=== PATIENT | female | born 1960 | race Caucasian/White ===

== ENCOUNTER 2020-11-03 13:38 | Outpatient (REF) | payer OTHER, SELFPAY ==
[2020-11-03 14:55] LABS: Glucose Urine UA NEG (NEG); Leukocyte Esterase Urine NEG (NEG); Nitrite Urine NEG (NEG); PH 6.5 (5.0-8.0); Urine Blood 1+ (NEG); Urine Ketones NEG (NEG); Urine Protein NEG (NEG-TRACE)
[2020-11-03 14:57] LABS: Appearance Urine HAZY; Color Urine YELLOW
[2020-11-03 15:01] LABS: Bacteria Urine TRACE /LPF; Squamous Epithelial Cell Urine 3+ /LPF; WBC Urine 0-2 /HPF (0-4)
== END 2020-11-03 13:39 | disposition home or self-care (01) ==
LOC: HO.HMGCLDS 13:38
PROVIDERS: PCP Internal Medicine; Visit Provider Internal Medicine
DX: R30.0 Dysuria (principal)
CPT/HCPCS: 81001

== ENCOUNTER 2020-11-04 15:23 | Outpatient (REF) | payer OTHER, SELFPAY ==
[2020-11-05 08:04] LABS: BV Int Neg Control Negative (Negative); BV Int Pos Control Positive (Positive)
== END 2020-11-04 15:24 | disposition home or self-care (01) ==
LOC: HO.LAB 15:23
PROVIDERS: Visit Provider Internal Medicine
DX: R30.0 Dysuria (principal)
CPT/HCPCS: 87086; 87480; 87510; 87660; 88142

== ENCOUNTER 2021-02-24 10:49 | Outpatient (REF) | payer OTHER, SELFPAY ==
[2021-02-24 13:52] LABS: Glucose Urine UA NEG (NEG); Leukocyte Esterase Urine NEG (NEG); Nitrite Urine NEG (NEG); Specific Gravity - Urine 1.015 (1.005-1.025); Urine Blood NEG (NEG); Urine Ketones NEG (NEG); Urine Protein NEG (NEG-TRACE)
[2021-02-24 13:53] LABS: Hematocrit 45.3 % (37-47); Hemoglobin 14.3 g/dl (12.0-16.0); Mean Corpuscular HGB Conc 31.6 g/dl (31.0-35.0); Mean Corpuscular Hemoglobin 26.4 pg (27.0-33.0); Mean Corpuscular Volume 83.7 fL (80-98); Mean Platelet Volume 11.4 fL (9.4-12.3); Platelet Count 304 X10*3/uL (160-400); Red Blood Count 5.41 X10*6/uL (4.20-5.50); Red Cell Distribution Width 13.2 % (11.0-16.0); White Blood Count 12.7 X10*3/uL (4.8-10.8)
[2021-02-24 13:57] LABS: Appearance Urine CLEAR; Color Urine STRAW
[2021-02-24 14:18] LABS: Bacteria Urine TRACE /LPF; RBC Urine 0 /HPF (0); Squamous Epithelial Cell Urine 3+ /LPF; WBC Urine 0-2 /HPF (0-4)
[2021-02-24 14:19] LABS: Alanine Aminotransferase 34 U/L (0-31); Albumin Level 4.9 g/dL (3.5-5.0); Alkaline Phosphatase 66 U/L (39-117); Anion Gap 14 (12-20); Aspartate Amino Transferase 21 U/L (5-31); Bilirubin Total 0.5 mg/dL (0.0-1.0); Blood Urea Nitrogen 19 mg/dL (9-16); Calcium 9.8 mg/dL (8.4-10.2); Carbon Dioxide 30 mmol/L (22-29); Chloride 100 mmol/L (96-108); Cholesterol 284 mg/dL; Estimated Glomerular Filt Rate > 60; Glucose Fasting 95 mg/dL (60-99); HDL Cholesterol 49 mg/dL; LDL Cholesterol Calculated 184 mg/dl; Potassium 4.4 mmol/L (3.3-5.1); Sodium 140 mmol/L (135-145); Total Protein 7.9 g/dL (6.5-8.0); Triglycerides 255 mg/dL
[2021-02-24 14:39] LABS: TSH reflex Free T4 0.37 uIU/mL (0.32-4.0); Vitamin D 25-OH Total 33.9 ng/mL (>30)
== END 2021-02-24 10:50 | disposition home or self-care (01) ==
LOC: HO.HMGCLDS 10:49
PROVIDERS: PCP Internal Medicine; Visit Provider Internal Medicine
DX: Z00.00 Encounter for general adult medical examination without abnormal findings (principal); E78.5 Hyperlipidemia, unspecified; F41.9 Anxiety disorder, unspecified; I10 Essential (primary) hypertension; R30.0 Dysuria
CPT/HCPCS: 36415; 80053; 80061; 81001; 81003; 82306; 84443; 85027

== ENCOUNTER 2022-03-01 12:39 | Outpatient (REF) | payer OTHER, SELFPAY ==
--- NOTE | ~2022-03-01 | XR_ITS ---
EXAMINATION: 1. RADIOGRAPHS RIGHT HAND 2. RADIOGRAPHS LEFT HAND CLINICAL INFORMATION: Bilateral hand pain COMPARISON: None TECHNIQUE: 3 views of each hand were obtained FINDINGS: Right hand: Diffuse osteopenia. Visualized portion of the distal radius and ulna demonstrate no fracture. Carpal rows are well aligned. No carpal, metacarpal or phalangeal fracture. No significant degenerative changes of the right hand. No focal soft tissue swelling. No radiopaque foreign body. Left hand: Diffuse osteopenia. Visualized portions of the distal left radius and ulna demonstrate no fracture. Carpal rows are well aligned. No carpal bone fracture. No metacarpal or phalangeal fracture. No significant degenerative changes of the left hand. No focal soft tissue swelling. No radiopaque foreign body. XR/XR hand LT min 3V IMPRESSION: -Diffuse osteopenia of both hands. -No acute abnormality of either hand.
--- NOTE | ~2022-03-01 | XR_ITS ---
EXAMINATION: 1. RADIOGRAPHS RIGHT HAND 2. RADIOGRAPHS LEFT HAND CLINICAL INFORMATION: Bilateral hand pain COMPARISON: None TECHNIQUE: 3 views of each hand were obtained FINDINGS: Right hand: Diffuse osteopenia. Visualized portion of the distal radius and ulna demonstrate no fracture. Carpal rows are well aligned. No carpal, metacarpal or phalangeal fracture. No significant degenerative changes of the right hand. No focal soft tissue swelling. No radiopaque foreign body. Left hand: Diffuse osteopenia. Visualized portions of the distal left radius and ulna demonstrate no fracture. Carpal rows are well aligned. No carpal bone fracture. No metacarpal or phalangeal fracture. No significant degenerative changes of the left hand. No focal soft tissue swelling. No radiopaque foreign body. XR/XR hand RT min 3V IMPRESSION: -Diffuse osteopenia of both hands. -No acute abnormality of either hand.
--- NOTE | ~2022-03-01 | XR_ITS ---
EXAMINATION: 1. RADIOGRAPHS RIGHT SHOULDER 2. RADIOGRAPHS LEFT SHOULDER CLINICAL INFORMATION: Bilateral shoulder pain COMPARISON: None TECHNIQUE: 4 views of each shoulder were obtained. FINDINGS: Right shoulder: Visualized portion of the proximal right humerus demonstrate no fracture. Humeral head demonstrates good articulation with the glenoid fossa. Small osteophyte off the inferior glenoid. Minimal hypertrophic changes of the right acromioclavicular joint. Visualized right-sided ribs and lung parenchyma are unremarkable. Left shoulder: Visualized portion of the proximal left humerus demonstrate no fracture. Humeral head demonstrates good articulation with the glenoid fossa. The left acromioclavicular joint is unremarkable. Visualized left-sided ribs and lung parenchyma are normal in appearance. XR/XR shoulder LT min 2V IMPRESSION: -Minimal degenerative changes of the right shoulder. -Grossly unremarkable radiographs of the left shoulder.
--- NOTE | ~2022-03-01 | XR_ITS ---
EXAMINATION: 1. RADIOGRAPHS RIGHT SHOULDER 2. RADIOGRAPHS LEFT SHOULDER CLINICAL INFORMATION: Bilateral shoulder pain COMPARISON: None TECHNIQUE: 4 views of each shoulder were obtained. FINDINGS: Right shoulder: Visualized portion of the proximal right humerus demonstrate no fracture. Humeral head demonstrates good articulation with the glenoid fossa. Small osteophyte off the inferior glenoid. Minimal hypertrophic changes of the right acromioclavicular joint. Visualized right-sided ribs and lung parenchyma are unremarkable. Left shoulder: Visualized portion of the proximal left humerus demonstrate no fracture. Humeral head demonstrates good articulation with the glenoid fossa. The left acromioclavicular joint is unremarkable. Visualized left-sided ribs and lung parenchyma are normal in appearance. XR/XR shoulder RT min 2V IMPRESSION: -Minimal degenerative changes of the right shoulder. -Grossly unremarkable radiographs of the left shoulder.
[2022-03-01 13:50] LABS: Hematocrit 42.4 % (37.0-47.0); Hemoglobin 13.5 g/dl (12.0-16.0); Mean Corpuscular HGB Conc 31.8 g/dl (31.0-35.0); Mean Corpuscular Hemoglobin 26.3 pg (27.0-33.0); Mean Corpuscular Volume 82.5 fL (80.0-98.0); Mean Platelet Volume 10.6 fL (9.4-12.3); Platelet Count 264 X10*3/uL (160-400); Red Blood Count 5.14 X10*6/uL (4.20-5.50); Red Cell Distribution Width 13.5 % (11.0-16.0); White Blood Count 8.4 X10*3/uL (4.8-10.8)
[2022-03-01 14:34] LABS: Erythrocyte Sedimentation Rate 12 MM/HR (0-20)
[2022-03-01 14:44] LABS: Alanine Aminotransferase 46 U/L (0-31); Albumin Level 4.6 g/dL (3.5-5.0); Alkaline Phosphatase 66 U/L (39-117); Anion Gap 12 (12-20); Aspartate Amino Transferase 28 U/L (5-31); Bilirubin Total 0.6 mg/dL (0.0-1.0); Blood Urea Nitrogen 15 mg/dL (9-16); Calcium 9.7 mg/dL (8.4-10.2); Carbon Dioxide 26 mmol/L (22-29); Chloride 106 mmol/L (96-108); Cholesterol 222 mg/dL; Estimated Glomerular Filt Rate > 60; Glucose Fasting 94 mg/dL (60-99); HDL Cholesterol 42 mg/dL; LDL Cholesterol Calculated 141 mg/dl; Potassium 4.6 mmol/L (3.3-5.1); Sodium 139 mmol/L (135-145); Total Protein 7.2 g/dL (6.5-8.0); Triglycerides 195 mg/dL
[2022-03-01 14:45] LABS: Rheumatoid Factor < 15.0 IU/mL (<15.0)
[2022-03-01 14:54] LABS: TSH reflex Free T4 0.41 uIU/mL (0.32-4.0)
[2022-03-03 12:31] LABS: Anti Nuclear Antibody Screen NEGATIVE (NEGATIVE)
[2022-03-03 23:57] LABS: Cyclic Citrullinated Peptide <16 UNITS
== END 2022-03-01 12:40 | disposition home or self-care (01) ==
LOC: HO.HMGCX 12:39
PROVIDERS: PCP Internal Medicine; Visit Provider Internal Medicine
DX: M79.642 Pain in left hand (principal); M79.641 Pain in right hand; M25.512 Pain in left shoulder; M25.511 Pain in right shoulder; I10 Essential (primary) hypertension; E78.5 Hyperlipidemia, unspecified
CPT/HCPCS: 36415; 73030; 73130; 80053; 80061; 84443; 85027; 85652; 86038; 86039; 86200; 86431

== ENCOUNTER 2022-08-26 15:30 | Outpatient (REF) | payer OTHER, SELFPAY | END 2022-08-26 15:31 | disposition home or self-care (01) | LOC: HO.HMGCLNP 15:30 | PROVIDERS: PCP Internal Medicine; Visit Provider Internal Medicine | DX: R76.8 Other specified abnormal immunological findings in serum (principal) | CPT/HCPCS: 87338 ==

== ENCOUNTER 2022-09-08 11:50 | Outpatient (REF) | payer OTHER, SELFPAY ==
[2022-09-08 14:17] LABS: Alanine Aminotransferase 22 U/L (0-31); Albumin Level 4.7 g/dL (3.5-5.0); Alkaline Phosphatase 65 U/L (39-117); Anion Gap 15 (12-20); Aspartate Amino Transferase 20 U/L (5-31); Bilirubin Total 0.2 mg/dL (0.0-1.0); Blood Urea Nitrogen 15 mg/dL (9-16); Calcium 9.8 mg/dL (8.4-10.2); Carbon Dioxide 26 mmol/L (22-29); Chloride 104 mmol/L (96-108); Cholesterol 232 mg/dL; Estimated Glomerular Filt Rate > 60; Glucose Fasting 101 mg/dL (60-99); HDL Cholesterol 44 mg/dL; LDL Cholesterol Calculated 157 mg/dl; Potassium 4.5 mmol/L (3.3-5.1); Sodium 140 mmol/L (135-145); Total Protein 7.5 g/dL (6.5-8.0); Triglycerides 155 mg/dL
[2022-09-08 14:38] LABS: TSH reflex Free T4 0.53 uIU/mL (0.32-4.0); Vitamin D 25-OH Total 26.1 ng/mL (>30)
== END 2022-09-08 11:51 | disposition home or self-care (01) ==
LOC: HO.HMGCLDS 11:50
PROVIDERS: PCP Internal Medicine; Visit Provider Internal Medicine
DX: E55.9 Vitamin D deficiency, unspecified (principal); E78.5 Hyperlipidemia, unspecified; I10 Essential (primary) hypertension
CPT/HCPCS: 36415; 80053; 80061; 82306; 84443

== ENCOUNTER 2023-04-06 13:10 | Outpatient (REF) | payer OTHER, SELFPAY ==
--- NOTE | ~2023-04-06 | US_ITS ---
EXAMINATION: US PELVIS CLINICAL INFORMATION: Ovarian cyst right COMPARISON: Previous CT of the abdomen and pelvis October 2016 TECHNIQUE: Transabdominal and transvaginal pelvic ultrasound was performed. Transvaginal exam was performed for better visualization of the uterus and ovaries. FINDINGS: The uterus is anteverted and measures 7.5 x 2.5 x 3.6 cm. The double wall endometrial thickness is 11 mm. This is abnormally thickened for a postmenopausal patient. The uterus is smooth in contour and has normal myometrial echogenicity. No visible fibroid. The right ovary is normal-appearing and measures 1.8 x 0.7 x 1.6 cm. No cyst is seen. The left ovary is not seen. There is no fluid in the pelvis. US/US pelvic and transvaginal IMPRESSION: Normal-appearing right ovary. Left ovary not seen. Abnormally thickened endometrium for a postmenopausal patient measuring 11 mm. FULL TIME BABYSITTER consultation recommended.
--- NOTE | ~2023-04-06 | XR_ITS ---
EXAMINATION: XR LUMBOSACRAL SPINE CLINICAL INFORMATION: Low back pain COMPARISON: None available. TECHNIQUE: Three views of the lumbosacral spine. FINDINGS: There is mild straightening of lumbar lordosis. There is loss of L1 superior endplate height likely compression deformity of indeterminate age. Rest of the vertebral heights and alignment are normal. There is mild loss of L5-S1 disc height. Rest the disc heights are normal. No aggressive lytic or sclerotic process seen. The paravertebral soft tissues are normal. XR/XR lumbar spine 2-3V IMPRESSION: Loss of superior endplate height L1 vertebra of indeterminate age. Correlation with outpatient Limited bone scan or MRI lumbar spine can be performed if patient has pain.
== END 2023-04-06 13:11 | disposition home or self-care (01) ==
LOC: HO.HMGCX 13:10
PROVIDERS: PCP Internal Medicine; Visit Provider Internal Medicine
DX: M54.50 Low back pain, unspecified (principal); N83.209 Unspecified ovarian cyst, unspecified side
CPT/HCPCS: 72100; 76830; 76856

== ENCOUNTER 2023-04-20 14:19 | Outpatient (REF) | payer OTHER, SELFPAY ==
--- NOTE | ~2023-04-20 | MM_ITS ---
EXAMINATION: BONE DENSITOMETRY CLINICAL INDICATION: Asymptomatic menopausal state. COMPARISON: None (current study represents initial baseline exam). TECHNIQUE: Using a [employer] DXA System (software version: 13.1) manufactured by [employer], dual-energy x-ray absorptiometry was performed of the lumbar spine and left hip. The images are of good technical quality. Summary results are attached. FINDINGS: AP SPINE L1-L4: BMD 1.013 g/cm2, Z-score 0.0, T-score -1.4, osteopenia. LEFT FEMUR, NECK: BMD 0.693 g/cm2, Z-score -1.2, T-score -2.5, osteoporosis. LEFT FEMUR, TOTAL: BMD 0.670 g/cm2, Z-score -1.6, T-score -2.7, osteoporosis. IDENTIFIED RISK FACTORS: Menopause, history of fracture (adult), osteoporosis, tobacco use (current smoker). HISTORY OF FRACTURE: Wrists. MEDICATIONS: Calcium supplements or multivitamin, vitamin D. MM/XR DEXA axial skeleton IMPRESSION: 1. DIAGNOSIS: Osteoporosis based on the lowest T-score value of -2.7 in the applying World Health Organization criteria. 2. 10-YEAR FRACTURE RISK PREDICTION, FRAX: According to the guidelines, FRAX calculation should only be performed on patients in the osteopenia bone density category. Therefore, FRAX was not performed on this patient. 3. Treatment Recommendations: NOF guidelines recommend consideration for treatment in postmenopausal women and men age 50 and older presenting with the following: -A hip or vertebral (clinical or morphometric) fracture. -T-score less than or equal to -2.5 at the femoral neck or spine after appropriate evaluation to exclude secondary causes. -Low bone mass at the hip or spine and a 10-year fracture probability by FRAX of greater than or equal to 3% for hip fracture or greater than or equal to 20% for major osteoporotic fracture based on the [place] adapted WHO algorithm. 4. Other Recommendations: All treatment decisions require clinical judgment and consideration of individual patient factors, including patient preferences, comorbidities, previous drug use, risk factors not captured in the FRAX model (e.g. frailty, falls, vitamin D deficiency, increased bone turnover, interval significant decline in bone density) and possible under or overestimation of fracture risk by FRAX. Additional medical evaluation for secondary cause of low bone mineral density may be appropriate. FUTURE SCAN RECOMMENDATION: People with diagnosed cases of osteoporosis or at high risk for fracture should have regular bone mineral density tests. For patients eligible for Medicare, routine testing is allowed once every 2 years. The testing frequency can be increased to one year for patients who have rapidly progressing disease, those who are receiving or discontinuing medical therapy to restore bone mass, or have additional risk factors.
== END 2023-04-20 14:20 | disposition home or self-care (01) ==
LOC: HO.MAMMO 14:19
PROVIDERS: PCP Internal Medicine; Visit Provider Internal Medicine
DX: Z13.820 Encounter for screening for osteoporosis (principal); Z78.0 Asymptomatic menopausal state
CPT/HCPCS: 77080

== ENCOUNTER 2023-05-19 12:31 | Outpatient (REF) | payer OTHER, SELFPAY ==
[2023-05-26 05:18] LABS: HPV mRNA E6/E7 rflx Not Detected (Not Detected)
== END 2023-05-19 12:32 | disposition home or self-care (01) ==
LOC: HO.LNP 12:31
PROVIDERS: PCP Internal Medicine; Visit Provider Obstetrics & Gynecology
DX: Z12.4 Encounter for screening for malignant neoplasm of cervix (principal); Z11.51 Encounter for screening for human papillomavirus (HPV); R93.89 Abnormal findings on diagnostic imaging of other specified body structures
CPT/HCPCS: 58100; 87624; 88142

== ENCOUNTER 2023-05-19 13:19 | Outpatient (REF) | payer OTHER, SELFPAY | END 2023-05-19 13:20 | disposition home or self-care (01) | LOC: HO.LAB 13:19 | PROVIDERS: Visit Provider Obstetrics & Gynecology | DX: R93.89 Abnormal findings on diagnostic imaging of other specified body structures (principal) | CPT/HCPCS: 88305 ==

== ENCOUNTER 2023-05-23 14:32 | Outpatient (REF) | payer OTHER, SELFPAY ==
--- NOTE | ~2023-05-23 | MM_ITS ---
EXAMINATION: MM SCREENING DIGITAL BREAST TOMOSYNTHESIS, RIGHT CLINICAL INFORMATION: Screening. Asymptomatic. Please note that the patient was only able to tolerate her right breast being imaged. She indicated that she would return in July 2023 at the left breast image. COMPARISON: Mammography: This study is compared with prior exams dating back to 2018. TECHNIQUE: Digital breast tomosynthesis is performed in both the craniocaudal and mediolateral oblique views along with computer-aided detection (CAD). Synthesized 2D images are generated from the tomosynthesis. FINDINGS: There are scattered areas of fibroglandular density (ACR BI-RADS breast composition Category b). There are no significant masses, abnormal calcifications, or other abnormalities. MM/MM tomosynthesis screening RT IMPRESSION: No mammographic evidence of malignancy. ASSESSMENT: BI-RADS BI-RADS 1 - Negative RECOMMENDATION: The patient will return to have her standard left breast screening mammogram performed in July 2023. Additional Imaging required This examination should not preclude the clinical evaluation of a suspicious palpable abnormality. This patient's information was entered into a reminder system with a target due date for their next mammogram.
== END 2023-05-23 14:33 | disposition home or self-care (01) ==
LOC: HO.MAMMO 14:32
PROVIDERS: PCP Internal Medicine; Visit Provider Internal Medicine
DX: Z12.31 Encounter for screening mammogram for malignant neoplasm of breast (principal)
CPT/HCPCS: 77063; 77067

== ENCOUNTER → 2023-05-23 14:45 | Outpatient (BNV) | payer OTHER, SELFPAY | PROVIDERS: PCP Internal Medicine; Visit Provider Radiology Diagnostic Radiology | DX: Z12.31 Encounter for screening mammogram for malignant neoplasm of breast (principal) | CPT/HCPCS: 77063; 77067 ==

== ENCOUNTER 2023-05-23 15:41 | Emergency (ER) | payer OTHER, SELFPAY ==
--- NOTE | ~2023-05-23 | CT_ITS ---
EXAMINATION: CT ANGIOGRAM HEAD CT ANGIOGRAM NECK CLINICAL INFORMATION: Left-sided weakness. Confusion. COMPARISON: CT head 05/23/2023. TECHNIQUE: Geological E Logger images were obtained. A CT angiogram of the head and neck was performed in the arterial phase after the intravenous administration of 70 mL Omnipaque 350. Delayed postcontrast images of the head were also obtained. 3D images were processed on an independent workstation under concurrent supervision. Arterial stenoses are measured in accordance with NASCET criteria or similar method if applicable. This CT examination was performed using dose optimization techniques as appropriate, including one or more of the following: Automated exposure control, iterative reconstruction, and adjustment of technique factors (mA and/or kVp) according to patient size (this includes techniques or standardized protocols for targeted exams where dose is matched to indication/reason for exam). Fleischner Society criteria for the followup of incidental pulmonary nodules was implemented if appropriate. Total exam dose-length product 1387 mGy-cm FINDINGS: Head: Postcontrast images reveal no abnormal intracranial mass or enhancement. There is no intracranial mass effect or midline shift. Lateral and third ventricles are normal. No hydrocephalus. Aguirre-white matter differentiation is preserved and there is no evidence of acute territorial infarct. The calvarium and skull base are intact. Mastoid air cells and middle ear cavities are well-aerated. No active paranasal sinus disease. CT angiogram neck: Scattered atheromatous calcification involves the aortic arch apex. Origins of major aortic branches are patent. Common carotid arteries are normal. There is partially calcified predominantly lipid-laden atheromatous plaque at both carotid bifurcations causing 25-50% stenosis at the origins of the internal carotid arteries. The right carotid plaque has a deep ulceration best visualized on axial image 521 of 879 series 8. The cervical segments of the vertebral arteries are widely patent. CT angiogram head: Intracranial internal carotid arteries are patent. The intradural vertebral artery segments and basilar artery are patent. Anterior, middle, and posterior cerebral artery complexes are normal. No intracranial large vessel occlusion. No identifiable aneurysm or high flow vascular lesion. The timing of the contrast injection provides adequate opacification of the dural venous sinuses which are patent. Other: Soft tissues of the neck including the thyroid gland are normal. Grossly no pathologically enlarged cervical lymph nodes. There is degenerative spondylosis with hypertrophic disc osteophyte spurring at C6-C7. Otherwise no evidence of spinal canal compromise. No worrisome lytic or blastic osseous lesion within the [id number] of this examination. Lung apices are clear. CT/CT angio head neck stroke IMPRESSION: There is partially calcified predominantly lipid-laden atheromatous plaque at both carotid bifurcations causing 25-50% stenosis at the origins of both internal carotid arteries. The right carotid plaque has a deep ulceration. Cervical vertebral arteries are widely patent. No intracranial large vessel occlusion. No evidence of acute territorial infarct or hemorrhage. No abnormal intracranial mass or enhancement. This critical result was discussed with Araceli Grant NP at 5:01 PM on 05/23/2023 and it was ascertained that the content and urgency of the report was understood at the time of direct communication.
--- NOTE | ~2023-05-23 | XR_ITS ---
EXAMINATION: XR CHEST CLINICAL INFORMATION: Syncope COMPARISON: None available. TECHNIQUE: Frontal view of the chest was obtained. FINDINGS: No significant abnormality is noted involving the heart, lungs, mediastinum, bony thorax or soft tissues. XR/XR chest 1V IMPRESSION: Unremarkable examination.
--- NOTE | 2023-05-23 16:01 | ED_ITS ---
HPI - General Adult General Chief complaint: General Medical Stated complaint: high bp/ faintlike Time Seen by Provider: 05/23/23 16:24 Source: patient Mode of arrival: ambulatory Limitations: no limitations History of Present Illness HPI narrative: Patient history of hypertension vasovagal attacks in the past while having mammogram felt weak vision got blurred was sweaty had a almost Near syncope episode questionable slurred speech. No focal deficit noticed patient was seen at the triage and CT stroke was suspected CT scan of the head was done which was negative patient denies any chest pain or palpitation Related Data Home Medications Medication Instructions Recorded Confirmed zolpidem 10 mg tablet 10 mg PO BEDTIME PRN 11/04/20 04/06/23 Previous Rx's Medication Instructions Recorded Lactobacillus rhamnosus GG 10 1 cap PO DAILY #30 caps 11/04/20 billion cell capsule (Culturelle) hydroxyzine HCl 25 mg tablet 25 mg PO TID PRN nausea and 02/23/21 vomiting #20 tabs amlodipine 5 mg-benazepril 10 mg 1 cap PO DAILY #90 caps 08/26/22 capsule propranolol 40 mg tablet 40 mg PO BID #180 tabs 03/09/23 acetaminophen 650 mg 650 mg PO Q12H #30 tabs 04/06/23 tablet,extended release alendronate 70 mg tablet 70 mg PO QWEEK #10 tabs 04/22/23 aspirin 81 mg tablet,delayed 81 mg PO DAILY #30 tabs 05/23/23 release Allergies Allergy/AdvReac Type Severity Reaction Status Date / Time Iodinated Contrast Media Allergy Unconscious Verified 05/23/23 16:10 [IV Contrast Dye] atorvastatin AdvReac Intermediate hair loss Verified 05/23/23 16:09 Erythromycin Allergy Unknown Hives Uncoded 05/23/23 16:09 Review of Systems Review of Systems: Yes all other systems are reviewed and are negative PMFSH Past Medical History Medical History Annual physical exam Anxiety disorder Bilateral hand pain Dysuria History of Papanicolaou smear of cervix Hx of bone density study Hyperlipidemia Hypertension IBS (irritable bowel syndrome) Major depressive disorder Positive serology for Helicobacter pylori Shoulder pain, bilateral Surgical History H/O colonoscopy History of appendectomy Social History Social History Housing: Apartment Alcohol intake: never Patient Tobacco Use Status: Current someday Tobacco user Cigarettes Per Day: 7 Smoked in Last 30 Days: Yes e-Cigarette/Vaping Use: Never Used Use of substances other than those prescribed or required for medical reasons: No Advance Directives: No Advance Directives Information Provided: Yes service: No Current occupational status: unemployed Cognitive needs: No Hearing needs: No Vision needs: Yes Physical Exam ED Vital Signs: Vital Signs - 24 hr 05/23/23 16:10 05/23/23 17:24 05/23/23 17:28 Temperature 98 F 98.5 F Pulse Rate 73 68 68 Respiratory Rate 19 16 Blood Pressure 177/95 H 158/72 H 155/81 H Pulse Oximetry 99 98 Oxygen Delivery Method Room Air Room Air 05/23/23 17:24 05/23/23 17:26 05/23/23 18:00 Temperature Pulse Rate 68 72 70 Respiratory Rate 17 Blood Pressure 155/81 H 140/81 H Pulse Oximetry 98 Oxygen Delivery Method Room Air BMI result Body Mass Index 24.7 Appearance: Alert. Oriented X3. No acute distress. Eyes: PERRLA, No Nystagmus ENT: Pharynx normal. Oral Mucosa moist Neck: Normal inspection. Neck supple. CVS: Normal heart rate and rhythm. Pulses normal. Respiratory: No respiratory distress. Equal air entry bilateral, no wheezing/rales/rhonchi Abdomen: Soft and nontender. Bowel sounds are present, no mass palpable, no CVA tenderness Skin: Skin warm and dry. Normal skin color. Normal skin turgor. Extremities: No lower extremity edema. No calf tenderness Neuro: Oriented X 3. No motor deficit. No sensory deficit.No cerebellar signs , cranial nerves II-XII intact NIH Stroke Scale Internal: Initial- Upon Arrival Level of Consciousness: Alert Level of Consciousness Questions: Answers both questions correctly Level of Consciousness Commands: Performs both tasks correctly Best Gaze: Normal Visual: No visual loss Facial Palsy: Normal Motor Arm (Right): No drift Motor Arm (Left): No drift Motor Leg (Right): No drift Motor Leg (Left): No drift Limb Ataxia: Absent Sensory: Normal Best Language: No aphasia Dysarthia: Normal Extinction and Inattention: No abnormality Score: 0 Course Course Course Narrative: 1617 This is an RME: Additional HPI, ROS, PE not included below will be deferred to primary provider. 62 yo female presents w/ vasovagal reaction per staff member at [facility]. Occurred during stella patient became pale, diaphoretic and felt fait. Noted to be HTN, tachycardic at the [facility]. Not on anticoags Per family patients LKWT was 2:30 the notice she is weak and confused 4/5 strength to LUE and 5/5 to RUE, patient slow to respond. Stroke protocol initiated at this time. Plan- labs, imaging, ekg 1622 At about 2:30 patient became, pale, slow to respond, diaphoretic and weak per administration professional Medications Administered Discontinued Medications Generic Name Dose Route Start Last Admin Trade Name Perry PRN Reason Stop Dose Admin Aspirin 81 mg 05/23/23 17:49 05/23/23 18:09 Aspirin 81 Mg Tab.Chew PO 05/23/23 17:50 81 mg ONCE ONE Administration Iohexol 100 ml 05/23/23 16:43 05/23/23 16:45 Iohexol 350 Mg/Ml 100 Ml Infus..Btl IV 05/23/23 16:44 70 ml ONCE ONE Administration Medical Decision Making Medical Decision Making [facility] Narrative: Patient With symptoms likely from vasovagal near-syncope no focal deficit noticed an HS a score of 0 CT scan showed significant plaque disease and carotid artery kit with Dr. Canela vascular surgeon advised starting baby aspirin daily follow up as outpatient Lab Data [facility] Lab Attestation statement: I reviewed the patient's lab results. 05/23/23 18:24 05/23/23 18:28 Labs: Lab Results 05/23/23 05/23/23 05/23/23 Range/Units 17:12 18:24 18:28 WBC 11.5 H (4.8-10.8) X10*3/uL RBC 5.91 H (4.20-5.50) X10*6/uL Hgb 15.5 (12.0-16.0) g/dl Hct 48.5 H (37.0-47.0) % MCV 82.1 (80.0-98.0) fL MCH 26.2 L (27.0-33.0) pg MCHC 32.0 (31.0-35.0) g/dl RDW 13.0 (11.0-16.0) % Plt Count 262 (160-400) X10*3/uL MPV 10.5 (9.4-12.3) fL Immature Gran % (Auto) 0.3 (0.0-0.4) % Neut % (Auto) 75.2 H (45-73) % Lymph % (Auto) 19.2 L (20-40) % Nash % (Auto) 3.9 (2-11) % Eos % (Auto) 0.8 (0-4) % Baso % (Auto) 0.6 (0-2) % Lymph # (Auto) 2.2 (1.2-4.9) X10*3/uL Nash # (Auto) 0.5 (0.1-1.2) X10*3/uL Eos # (Auto) 0.1 (0.0-0.4) X10*3/uL Baso # (Auto) 0.1 (0.0-0.2) X10*3/uL Abs Immat Gran (auto) 0.03 (0.00-0.03) X10*3/uL Absolute Neuts (auto) 8.7 H (2.0-8.3) x10*3/uL Absolute Nucleated RBC 0.000 (0.0-0.012) X10*3/uL Nucleated RBC % (auto) 0.0 (0.0-0.2) /100WBC PT 11.6 (10.0-13.1) SEC INR 1.0 (0.9-1.1) COVID-19 ([facility]) Negative (Negative) COVID-19 Clin Com See Note Radiology Impression Discussion of test interpretation with radiology: I have reviewed the radiologist's reading. Radiologist Impression: [address] [address] [address] Scan Report Signed Patient: Deepika Steel MR#: [id number] : 1960 Acct:[id number] Age/Sex: 62 / F ADM Date: 05/23/23 Loc: .ED Attending Dr: Ordering Physician: Cricket Sosa Date of Service: 05/23/23 Procedure(s): CT angio head? neck stroke Accession Number(s): [id number] cc: Cricket Sosa~ EXAMINATION: CT ANGIOGRAM HEAD CT ANGIOGRAM NECK CLINICAL INFORMATION: Left-sided weakness. Confusion.? COMPARISON: CT head 05/23/2023.? TECHNIQUE: [employer] images were obtained. A CT angiogram of the head and neck was performed in the arterial phase after the intravenous administration of 70 mL Omnipaque 350. Delayed postcontrast images of the head were also obtained. 3D images were processed on an independent workstation under concurrent supervision. Arterial stenoses are measured in accordance with NASCET criteria or similar method if applicable. This CT examination was performed using dose optimization techniques as appropriate, including one or more of the following: Automated exposure control, iterative reconstruction, and adjustment of technique factors (mA and/or kVp) according to patient size (this includes techniques or standardized protocols for targeted exams where dose is matched to indication/reason for exam). Fleischner Society criteria for the followup of incidental pulmonary nodules was implemented if appropriate. Total exam dose-length product 1387 mGy-cm FINDINGS: Head: Postcontrast images reveal no abnormal intracranial mass or enhancement. There is no intracranial mass effect or midline shift. Lateral and third ventricles are normal. No hydrocephalus. Aguirre-white matter differentiation is preserved and there is no evidence of acute territorial infarct. The calvarium and skull base are intact. Mastoid air cells and middle ear cavities are well-aerated. No active paranasal sinus disease. CT angiogram neck: Scattered atheromatous calcification involves the aortic arch apex. Origins of major aortic branches are patent. Common carotid arteries are normal. There is partially calcified predominantly lipid-laden atheromatous plaque at both carotid bifurcations causing 25-50% stenosis at the origins of the internal carotid arteries. The right carotid plaque has a deep ulceration best visualized on axial image 521 of 879 series 8. The cervical segments of the vertebral arteries are widely patent. CT angiogram head: Intracranial internal carotid arteries are patent. The intradural vertebral artery segments and basilar artery are patent. Anterior, middle, and posterior cerebral artery complexes are normal. No intracranial large vessel occlusion. No identifiable aneurysm or high flow vascular lesion. The timing of the contrast injection provides adequate opacification of the dural venous sinuses which are patent. Other: Soft tissues of the neck including the thyroid gland are normal. Grossly no pathologically enlarged cervical lymph nodes. There is degenerative spondylosis with hypertrophic disc osteophyte spurring at C6-C7. Otherwise no evidence of spinal canal compromise. No worrisome lytic or blastic osseous lesion within the [id number] of this examination. Lung apices are clear. CT/CT angio head? neck stroke IMPRESSION: There is partially calcified predominantly lipid-laden atheromatous plaque at both carotid bifurcations causing 25-50% stenosis at the origins of both internal carotid arteries. The right carotid plaque has a deep ulceration. Cervical vertebral arteries are widely patent. No intracranial large vessel occlusion. No evidence of acute territorial infarct or hemorrhage. No abnormal intracranial mass or enhancement. ? This critical result was discussed with Araceli Grant NP at 5:01 PM on 05/23/2023 and it was ascertained that the content and urgency of the report was understood at the time of direct communication. Dictated By: Jf Dennis MD Signed By: <Electronically signed by Jf Dennis MD in OV> 05/23/23 1705 DD/ 1653 TD/TT:? Finishing Range Operator: Discharge Plan Discharge Clinical Impression: Vasovagal near-syncope Patient Disposition: Home, Self-Care Instructions: Syncope (ED) Additional Instructions: Your symptoms likely from vasovagal near-syncope Drink plenty of fluids CT scan showed right carotid plaque need further evaluation by Dr. Canela vascular surgeon Start taking baby aspirin 81 mg daily for now Report to the ER if recurrence of symptoms Prescriptions: New aspirin 81 mg tablet,delayed release (DR/EC) 81 mg PO DAILY Qty: 30 0RF No Action amlodipine-benazepril 5-10 mg capsule 1 cap PO DAILY Qty: 90 3RF propranolol 40 mg tablet 40 mg PO BID Qty: 180 3RF alendronate 70 mg tablet 70 mg PO QWEEK Qty: 10 3RF zolpidem 10 mg tablet 10 mg PO BEDTIME PRN Culturelle 10 billion cell capsule 1 cap PO DAILY Qty: 30 3RF hydroxyzine HCl 25 mg tablet 25 mg PO TID PRN (Reason: nausea and vomiting) Qty: 20 0RF acetaminophen 650 mg tablet extended release 650 mg PO Q12H Qty: 30 0RF Referrals: Clement Canela MD [Physician] - 1 week
--- NOTE | 2023-05-23 16:01 | ECG_ITS ---
Test Reason : syncope Blood Pressure : / mmHG Vent. Rate : 070 BPM Atrial Rate : 070 BPM P-R Int : 196 ms QRS Dur : 076 ms QT Int : 396 ms P-R-T Axes : 047 000 047 degrees QTc Int : 427 ms Normal sinus rhythm Normal ECG No previous ECGs available Referred By: Cricket Sosa Electronically Signed By:BERTHA WALDROP MD
[2023-05-23 16:10] VITALS: BP 177/95; PULSE 73; RESP 19; TEMP 36.6; O2SAT 99; BMI 24.7
[2023-05-23 17:24] VITALS: BP 155/81; BP 158/72; PULSE 68
[2023-05-23 17:26] VITALS: BP 140/81; PULSE 72
[2023-05-23 17:28] VITALS: BP 155/81; PULSE 68; RESP 16; TEMP 36.9; O2SAT 98
[2023-05-23 17:44] LABS: COVID-19 Test Negative (Negative); IDNOW Serial# 6674DD1D
[2023-05-23 18:00] VITALS: PULSE 70; RESP 17; O2SAT 98
[2023-05-23] MEDS: Aspirin 81 MG TAB.CHEW PO (18:09)
[2023-05-23 18:28] LABS: MANUAL DIFF FLAG NO
[2023-05-23 18:34] LABS: Basophils Absolute Auto 0.1 X10*3/uL (0.0-0.2); Basophils Percent Auto 0.6 % (0-2); Eosinophils Absolute Auto 0.1 X10*3/uL (0.0-0.4); Eosinophils Percent Auto 0.8 % (0-4); Hematocrit 48.5 % (37.0-47.0); Hemoglobin 15.5 g/dl (12.0-16.0); Imm Gran Abs Auto 0.03 X10*3/uL (0.00-0.03); Imm Gran Pct Auto 0.3 % (0.0-0.4); Lymphocytes Absolute Auto 2.2 X10*3/uL (1.2-4.9); Lymphocytes Percent Auto 19.2 % (20-40); Mean Corpuscular Hemoglobin 26.2 pg (27.0-33.0); Mean Corpuscular Volume 82.1 fL (80.0-98.0); Mean Platelet Volume 10.5 fL (9.4-12.3); Monocytes Absolute Auto 0.5 X10*3/uL (0.1-1.2); Monocytes Percent Auto 3.9 % (2-11); Neutrophils Absolute Auto 8.7 x10*3/uL (2.0-8.3); Neutrophils Percent Auto 75.2 % (45-73); Platelet Count 262 X10*3/uL (160-400); Red Blood Count 5.91 X10*6/uL (4.20-5.50); White Blood Count 11.5 X10*3/uL (4.8-10.8)
[2023-05-23 18:40] LABS: Prothrombin Time 11.6 SEC (10.0-13.1)
[2023-05-23 19:32] LABS: Alanine Aminotransferase 26 U/L (0-31); Albumin Level 4.6 g/dL (3.5-5.0); Alkaline Phosphatase 81 U/L (39-117); Anion Gap 21 (12-20); Aspartate Amino Transferase 22 U/L (5-31); Bilirubin Total 0.3 mg/dL (0.0-1.0); Blood Urea Nitrogen 12 mg/dL (9-16); Calcium 10.5 mg/dL (8.4-10.2); Carbon Dioxide 17 mmol/L (22-29); Chloride 106 mmol/L (96-108); Creatinine Clr Calc Pharmacy 73.6; Estimated Glomerular Filt Rate > 60; Glucose Random 108 mg/dL (60-115); Magnesium 2.3 mg/dL (1.6-2.6); Potassium 4.7 mmol/L (3.3-5.1); Sodium 139 mmol/L (135-145); Total Protein 8.1 g/dL (6.5-8.0); Troponin-I High Sensitivity < 2.7 ng/L (<3.5-17.0)
== END 2023-05-23 19:48 | disposition home or self-care (01) ==
PROVIDERS: Physician Assistant; Emergency Provider Internal Medicine; PCP Internal Medicine
DX: R55 Syncope and collapse (principal); R51.9 Headache, unspecified; R41.0 Disorientation, unspecified; R53.1 Weakness; Z20.822 Contact with and (suspected) exposure to COVID-19; Z20.828 Contact with and (suspected) exposure to other viral communicable diseases; Z79.899 Other long term (current) drug therapy
CPT/HCPCS: 36415; 70450; 70496; 70498; 71045; 80053; 83735; 84484; 85025; 85610; 87635; 93005; 99284; Q9967

== ENCOUNTER → 2023-05-23 16:01 | Outpatient (BNV) | payer OTHER, SELFPAY | PROVIDERS: Emergency Provider Internal Medicine; PCP Internal Medicine; Visit Provider Internal Medicine Cardiovascular Disease | DX: R55 Syncope and collapse (principal) | CPT/HCPCS: 93010 ==

== ENCOUNTER 2023-05-26 14:54 | Outpatient (AMB) | payer OTHER, SELFPAY ==
--- NOTE | 2023-05-26 14:58 | MHC.OFFVIS ---
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 Pt had an episode while getting a mammogram where she passed out. 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 She had a vasovagal attack while having her mammogram last week. She had a near syncopal episode and there was a question of some speech slurring at that time. She was sent into the emergency room for an extensive workup. At that time she had undergone CT angiogram of the carotids. There was a question of an ulcerated plaque. She reports no other issues since her ER visit. She is quite concerned about her carotids. Upon discussion with the sister who was at bedside she reports several prior events of this in the past. She now is for follow-up with CT angiogram. Of note patient is a nonsmoker nondiabetic. [facility] Medical History Annual physical exam Anxiety disorder Bilateral hand pain Dysuria History of Papanicolaou smear of cervix Hx of bone density study Hyperlipidemia Hypertension IBS (irritable bowel syndrome) Major depressive disorder Positive serology for Helicobacter pylori Shoulder pain, bilateral Surgical History H/O colonoscopy History of appendectomy Social History (Updated 05/26/23 @ 15:04 by FAUSTINO Villanueva) Housing: Apartment Alcohol intake: never Patient Tobacco Use Status: Former Tobacco user Quit Date: 03/26/2023 Cigarettes Per Day: 0 e-Cigarette/Vaping Use: Never Used service: No Current occupational status: unemployed Cognitive needs: No Hearing needs: No Vision needs: Yes Review of Systems Const All systems reviewed & are unremarkable except as noted in HPI and below Reports no additional complaints ENT Reports Normal hearing present Card Denies chest pain, Denies chest pain at rest, Denies chest pain with activity and Denies pedal edema Resp Denies cough GI Denies abdominal pain Musc Denies abnormal gait, Denies muscle cramps and Denies radiating pain into limb Skin/Breast Denies skin ulcer and Denies wounds Neuro Reports Normal hearing present and Denies abnormal gait Psych Reports no additional complaints Physical Exam Vital Signs: Last Vital Signs BP 112/62 05/26/23 15:06 Const General: cooperative, healthy appearing and comfortable Orientation/consciousness: oriented to person, oriented to place and oriented to time HEENT Head: Yes normal to inspection Neck Neck: Yes normal visual inspection Carotids: no bruits Chest Chest palpation & inspection: normal inspection of the chest Resp Effort & Inspection: normal respiratory effort and able to speak in complete sentences Auscultation: clear to auscultation bilaterally, no crackles, no rales, no rhonchi and no wheezes Cardio Rate: regular rate Rhythm: regular rhythm Heart sounds: S1 normal heart sound present and S2 normal heart sound present Bruits: no carotid bruits Peripheral pulses: Peripheral pulses 2+ throughout GI Inspection: Yes normal to inspection Skin Wounds: no wounds Hair: normal Neuro General: oriented to person, oriented to place and oriented to time Cranial nerves: Yes CN's II-XII intact bilaterally and Yes Normal hearing present Cognition (Neuro): normal cognition Motor exam (neuro): 5/5 motor strength present throughout Extrem Other: venous exam: No significant superficial varicosities or spider telangiectasias, minimal edema General: No clubbing, No cyanosis and No edema Psych Appearance: grossly normal Mental Status: mental status grossly normal Speech and movement: Normal speech and movement present Results Reviewed Results Reviewed: CT angiogram written report and images reviewed from 05/23/2023 demonstrates bilateral 20-50% stenosis with concerns of the right carotid plaque with a deep ulceration. Per my review it did not appear to have such a deep ulceration. And the stenosis was closer to 25%. Written report and images were reviewed. Assessment & Plan Assessment & Plan (1) Carotid stenosis: Code(s): I65.29 - Occlusion and stenosis of unspecified carotid artery Plan: In short the patient has carotid stenosis. I do not think a the E ulceration is as severe. At the current time would manage this conservatively. Would maintain her on an anti-platelet agents such as aspirin. I did obtain a 6 month surveillance ultrasound. The findings and pathophysiology were discussed with the patient. She seemed reassured and was relieved that no surgery was indicated. Once again she will follow up with us in 6 months time. Thank you for allowing us to assist in her care. Orders: Orders US carotid duplex BI 6 Months I65.29 - Occlusion and stenosis of unspecified carotid artery Coding Level of Care Code New Pt Level 4 (01740) Diagnoses Carotid stenosis I65.29
[2023-05-26 15:04] VITALS: BP 118/70
[2023-05-26 15:06] VITALS: BP 112/62
== END 2023-05-26 15:49 | disposition home or self-care (01) ==
PROVIDERS: PCP Internal Medicine; Visit Provider Surgery Vascular Surgery
DX: I65.29 Occlusion and stenosis of unspecified carotid artery (principal)
CPT/HCPCS: 99203

== ENCOUNTER → 2023-05-26 14:54 | Outpatient (BNVA) | payer OTHER, SELFPAY | PROVIDERS: PCP Internal Medicine; Visit Provider Surgery Vascular Surgery ==

== ENCOUNTER 2023-06-02 09:12 | Outpatient (AMB) | payer OTHER, SELFPAY ==
--- NOTE | 2023-06-02 09:16 | MHC.OFFVIS ---
Intake Vital Signs 06/02/23 09:18 Height 5 ft 7 in Weight 167 lb BMI 26.2 BP 142/84 H Blood Pressure Location Lt brachial Position Sitting Intake Visit Reasons: Follow EMB Historic Preservationist Required: Yes Historic Preservationist Language: Turkish Historic Preservationist Name: Deisi {[id number]] Transport Pilot: Transport Pilot Present Accompanied by: Self / Same As Patient Allergies Iodinated Contrast Media [IV Contrast Dye] Allergy (Verified 06/02/23 09:19) Unconscious atorvastatin Adverse Reaction (Intermediate, Verified 06/02/23 09:19) hair loss Erythromycin Allergy (Unknown, Uncoded 06/02/23 09:19) Hives Is last menstrual period known: Yes Last menstrual period: 09/11/20 Post menopausal: No Patient : No Do you need a note to return to daycare/school/sports/work: Yes (for surgery on tuesday) HPI HPI Comments History of Present Illness Details Presenting for follow-up after endometrial biopsy. Doing well with no complaints. The pathology showed the following: Endometrium, biopsy:? -Superficial fragments of benign inactive endometrium and polypoid fragments with stromal fibrosis and focal calcifications suggestive of fibroadenomatous polyps; no atypia or carcinoma.? -Benign endocervical glandular and squamous epithelium. [facility] Medical History Annual physical exam Anxiety disorder Bilateral hand pain Dysuria History of Papanicolaou smear of cervix Hx of bone density study Hyperlipidemia Hypertension IBS (irritable bowel syndrome) Major depressive disorder Positive serology for Helicobacter pylori Shoulder pain, bilateral Surgical History H/O colonoscopy History of appendectomy Social History Housing: Apartment Alcohol intake: never Patient Tobacco Use Status: Former Tobacco user Quit Date: 03/26/2023 Cigarettes Per Day: 0 e-Cigarette/Vaping Use: Never Used service: No Current occupational status: unemployed Cognitive needs: No Hearing needs: No Vision needs: Yes Female Reproductive History Menstrual Date of last menstrual period: 09/11/20 Total pregnancies: 2 Full term: 2 Review of Systems Const All systems reviewed & are unremarkable except as noted in HPI and below Reports as per HPI and Reports no additional complaints Card Reports as per HPI and Reports no additional complaints Resp Reports as per HPI and Reports no additional complaints GI Reports as per HPI and Reports no additional complaints Reports as per HPI Physical Exam Vital Signs: Last Vital Signs BP 142/84 H 06/02/23 09:18 BMI result Body Mass Index 26.2 Const General: cooperative, healthy appearing and comfortable Chest Chest palpation & inspection: normal inspection of the chest and normal palpation of entire chest wall Breast/axilla inspection: normal inspection of the breasts and normal inspection of the axillae Breast/axilla palpation: normal palpation of the breasts, normal palpation of the axillae and no axillary lymphadenopathy Resp Effort & Inspection: normal respiratory effort Auscultation: clear to auscultation bilaterally Percussion: percussion normal Cardio Palpation: normal PMI Rate: regular rate Rhythm: regular rhythm Heart sounds: no murmurs and no rubs Peripheral pulses: Peripheral pulses 2+ throughout GI Inspection: Yes normal to inspection Palpation (GI): Soft to palpation, nontender, no guarding, not rigid and No hepatosplenomegaly present Percussion: Yes normal to percussion Auscultation: normal bowel sounds Rectal Exam - Female: deferred Assessment & Plan Assessment & Plan (1) Endometrial polyp: Comment: by path Thick endo on US Code(s): N84.0 - Polyp of corpus uteri Plan: Discussed with the patient the finding on ultrasound showing thickened endometrium with the finding on the pathology results showing features of possible polyp, therefore recommended hysteroscopy D&C possible polypectomy/myomectomy. The patient would like to think about it and get back to me as soon as possible. All questions answered, the patient verbalized understanding Coding Level of Care Code Est Pt Level 3 (27204) Diagnoses Endometrial polyp N84.0
[2023-06-02 09:18] VITALS: BP 142/84; BMI 26.2
== END 2023-06-02 09:59 | disposition home or self-care (01) ==
LOC: HO.HWS 09:12
PROVIDERS: PCP Internal Medicine; Visit Provider Obstetrics & Gynecology
DX: N84.0 Polyp of corpus uteri (principal)
CPT/HCPCS: 99213

== ENCOUNTER → 2023-06-02 09:12 | Outpatient (BNVA) | payer OTHER, SELFPAY | PROVIDERS: PCP Internal Medicine; Visit Provider Obstetrics & Gynecology | DX: N84.0 Polyp of corpus uteri (principal); R55 Syncope and collapse; I65.29 Occlusion and stenosis of unspecified carotid artery | CPT/HCPCS: 99202; 99212 ==

== ENCOUNTER 2023-06-02 10:28 | Outpatient (AMB) | payer OTHER, SELFPAY ==
--- NOTE | 2023-06-02 10:30 | MHC.OFFVIS ---
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/ syncope/ Intake Note: NPV Apprentice Painter Hand Required: Yes Apprentice Painter Hand Language: Guinean Apprentice Painter Hand Name: Tony [id number] Accompanied by: Self / Same As Patient Allergies Iodinated Contrast Media [IV Contrast Dye] Allergy (Verified 06/02/23 10:35) Unconscious atorvastatin Adverse Reaction (Intermediate, Verified 06/02/23 10:35) hair loss Erythromycin Allergy (Unknown, Uncoded 06/02/23 10:35) Hives Medication List - Last Reconciled 06/02/23 by Luis Armando Henley MD acetaminophen ER 650 mg PO Q12H amlodipine-benazepril 5-10 mg 1 cap PO DAILY ezetimibe 10 mg PO DAILY hydroxyzine HCl 25 mg PO TID PRN propranolol 40 mg PO BID zolpidem 10 mg PO BEDTIME PRN HPI HPI Comments History of Present Illness Details Deepika is here for consultation regarding a syncopal episode. We discussed with patient using Guinean spanish interpreter/translator. Apparently, patient was having a mammogram at that time felt weak vision, blurry, sweaty. There is a question of syncopal episode, slurring of speech and but ER note, possible left upper extremity weakness. Patient was then slow to respond. Stroke protocol was initiated in the ER and patient underwent head CT as well as CTA. There is no stroke identified but some carotid disease. Patient herself does not have any known cardiac issues according to her. No known coronary disease myocardial infarction. Various complaints like chest pains, shortness of breath, palpitations at different times. No specific patterns. Has hypertension, dyslipidemia and smoking history. [facility] Medical History Annual physical exam Anxiety disorder Bilateral hand pain Dysuria History of Papanicolaou smear of cervix Hx of bone density study Hyperlipidemia Hypertension IBS (irritable bowel syndrome) Major depressive disorder Positive serology for Helicobacter pylori Shoulder pain, bilateral Surgical History H/O colonoscopy History of appendectomy Social History Housing: Apartment Alcohol intake: never Patient Tobacco Use Status: Former Tobacco user Quit Date: 03/26/2023 Cigarettes Per Day: 0 e-Cigarette/Vaping Use: Never Used service: No Current occupational status: unemployed Cognitive needs: No Hearing needs: No Vision needs: Yes Review of Systems Const Denies chills, Denies daytime sleepiness, Denies fatigue, Denies fever(s), Denies frequent falls, Denies night sweats, Denies snoring, Denies weakness, Denies weight gain and Denies weight loss Eyes Denies loss of vision ENT Denies dizziness and Denies hearing loss Card Denies chest pain, Denies chest pain with activity, Denies syncope, Denies rapid heart rate, Denies edema, Denies claudication, Denies leg edema, Denies lightheadedness, Denies palpitations, Denies dyspnea, Denies dyspnea on exertion and Denies orthopnea Resp Denies cough, Denies excessive phlegm production, Denies dyspnea, Denies dyspnea on exertion, Denies snoring and Denies wheezing GI Denies abdominal pain, Denies hematochezia, Denies change in bowel habits, Denies change in stool character, Denies heartburn, Denies nausea and Denies vomiting Denies hematuria, Denies urinary frequency and Denies dysuria Musc Denies arthralgias, Denies muscle weakness, Denies numbness and Denies tingling Skin/Breast Denies nail changes and Denies rash Neuro Denies Abnormal speech present, Denies dizziness, Denies syncope, Denies frequent falls, Denies loss of vision, Denies memory loss, Denies numbness, Denies tingling and Denies weakness Psych Denies depression and Denies memory loss Endo Denies fatigue and Denies palpitations Aller/Immun Denies wheezing Physical Exam Vital Signs: Last Vital Signs Pulse 78 06/02/23 10:31 BP 120/72 06/02/23 10:31 BMI result Body Mass Index 24.4 Const General: comfortable and no acute distress Orientation/consciousness: patient oriented x3 HEENT Other: Unremarkable Head: Yes normal to inspection Neck Neck: Yes normal visual inspection Chest Chest palpation & inspection: normal inspection of the chest Resp Auscultation: clear to auscultation bilaterally Cardio Palpation: normal PMI Heart sounds: S1 normal heart sound present, S2 normal heart sound present, no gallops, no murmurs and no rubs GI Palpation (GI): Soft to palpation Back/Spine/Pelvis Other: unremarkable Skin General skin exam: no rashes or lesions noted Neuro General: patient oriented x3 Speech: No Abnormal speech present Extrem General: Yes normal to inspection Psych Mental Status: mental status grossly normal Assessment & Plan Assessment & Plan (1) Syncope: Code(s): R55 - Syncope and collapse (2) Carotid stenosis: Code(s): I65.29 - Occlusion and stenosis of unspecified carotid artery Plan In the recent EKG, underlying rhythm is sinus 70/Min; no significant ST-T changes and otherwise unremarkable. Normal ID and corrected QT. High sensitivity troponin unremarkable. Head and neck CTA shows carotid disease but nothing significant. Right carotid described to have a deep ulceration. Head CT does not show any acute hemorrhage or infarct. Etiology for the syncopal episode not very clear. Could have been a TIA. Vasovagal also possible. We will start with an MRI of the brain-there is a question of contrast allergy but patient not very clear. Also it seems she got CTA with contrast with no issues. There is no mention of any MRI contrast allergy. However, if still in doubt made just do without contrast. Echocardiogram/30 day monitor can be completed. Follow-up after testing. Orders: Orders CA echo transthoracic complete Today I65.29 - Occlusion and stenosis of unspecified carotid artery, R55 - Syncope and collapse ECG 30 day event monitor Today I48.0 - Paroxysmal atrial fibrillation MR head/brain wo/w con Today I63.9 - Cerebral infarction, unspecified Coding Level of Care Code New Pt Level 4 (73482) Diagnoses Syncope R55 Carotid stenosis I65.29
[2023-06-02 10:31] VITALS: BP 120/72; PULSE 78; BMI 24.4
== END 2023-06-02 11:03 | disposition home or self-care (01) ==
PROVIDERS: PCP Internal Medicine; Visit Provider Internal Medicine
DX: R55 Syncope and collapse (principal); I65.29 Occlusion and stenosis of unspecified carotid artery
CPT/HCPCS: 99204

== ENCOUNTER 2023-06-22 09:36 | Outpatient (AMB) | payer OTHER, SELFPAY ==
--- NOTE | 2023-06-22 09:39 | MHC.PC.OV ---
Vital Signs 06/22/23 09:40 Height 5 ft 7 in Weight 154 lb BMI 24.1 BP 120/74 Blood Pressure Location Lt brachial Position Sitting Pulse 72 Pulse Source Pulse Oximeter Pulse Oximetry (%) 98 Oxygen Delivery Method Room Air Intake Visit Reasons: Follow up on fatigue and weakness Intake Note: Pt is here today for a follow up visit on fatigue and weakness. Pt states that she is still feeling weak, dizzy, her face is pale and fatigue.Pt states that everything started after her first visit with [employer] Dr. Palencia. Allergies Iodinated Contrast Media [IV Contrast Dye] Allergy (Verified 06/22/23 09:45) Unconscious alendronate sodium [From Fosamax] Adverse Reaction (Intermediate, Verified 06/22/23 10:27) Dizziness atorvastatin Adverse Reaction (Intermediate, Verified 06/22/23 09:45) hair loss Erythromycin Allergy (Unknown, Uncoded 06/22/23 09:45) Hives Medication List - Last Reconciled 06/22/23 by Lizette Samano MD acetaminophen ER 650 mg PO Q12H amlodipine-benazepril 5-10 mg 1 cap PO DAILY ezetimibe 10 mg PO DAILY hydroxyzine HCl 25 mg PO TID PRN propranolol 40 mg PO BID zolpidem 10 mg PO BEDTIME PRN Tobacco use date assessed: 06/22/23 Fall risk assessment: No Falls in past year Last assessed Fall Risk: 06/22/23 Dental Screening Dental Screen Date: 06/22/23 Did you have a dental visit in the last 12 months?: Yes Did you have a dental problem in the last 6 months where you did not have access to dental care?: No Was dental information given to patient?: Patient has dentist HPI Follow up on fatigue and weakness HPI Details Pt presents for f/u feeling tired and dizzy since stated taking Fosamax 2 months ago. Patient discontinued her anti depression medications because was thinking they causing side effects. She has not been taking BP medications regularly and reports fluctuating blood pressure. Patient has been taking amlodipine with benazepril only when her blood pressure is elevated. Pt went to ER and had negative workup including brain CT and blood work. [facility] Medical History Annual physical exam Anxiety disorder Bilateral hand pain Dysuria History of Papanicolaou smear of cervix Hx of bone density study Hyperlipidemia Hypertension IBS (irritable bowel syndrome) Major depressive disorder Positive serology for Helicobacter pylori Shoulder pain, bilateral Surgical History H/O colonoscopy History of appendectomy Social History Housing: Apartment Alcohol intake: never Patient Tobacco Use Status: Former Tobacco user Quit Date: 03/26/2023 Cigarettes Per Day: 0 e-Cigarette/Vaping Use: Never Used service: No Current occupational status: unemployed Cognitive needs: No Hearing needs: No Vision needs: Yes Questionnaire Thrive Questionnaire Date Thrive assessed: 04/06/23 AUDIT C Alcohol Use Questionnaire (AUDIT-C) 1. How often do you have a drink containing alcohol?: Never 3. How often do you have six or more drinks on one occasion?: Never Total Score: 0 YOANA-7 AMB Questionnaire YOANA-7 Date YOANA - 7 assessed: 04/06/23 Source: Developed by Drs. Jf Sullivan, Elina Dunn, Luis Manuel Rodrigues and colleagues, with an educational bryan from [employer]. Review of Systems Const All systems reviewed & are unremarkable except as noted in HPI and below Reports no additional complaints Eyes Reports no additional complaints ENT Reports no additional complaints Card Reports no additional complaints Resp Reports no additional complaints GI Reports no additional complaints Reports no additional complaints Physical exam (Primary Care) Vital Signs: Last Vital Signs Pulse 72 06/22/23 09:40 BP 120/74 06/22/23 09:40 Pulse Ox 98 06/22/23 09:40 Oxygen Delivery Method Room Air 06/22/23 09:40 BMI result Body Mass Index 24.1 Tobacco/Smoking Status: Tobacco use Status Tobacco use date assessed 06/22/23 06/22/23 09:47 Patient Tobacco Use Status Former Tobacco user 06/22/23 09:43 e-Cigarette/Vaping Use Never Used 06/22/23 09:43 Thrive Assessment: Date of Thrive Assessment Date Thrive assessed 04/06/23 06/22/23 09:43 Const General: no acute distress HENMT Head: Yes normal to inspection Throat: Yes posterior oropharynx normal Neck Neck: Yes no lymphadenopathy and Yes supple Resp Auscultation: clear to auscultation bilaterally Cardio Rhythm: regular rhythm Heart sounds: S1 normal heart sound present and S2 normal heart sound present GI Palpation (GI): Soft to palpation Auscultation: normal bowel sounds Neuro Cranial nerves: Yes CN's II-XII intact bilaterally Gait exam (Neuro): Normal gait present Motor exam (neuro): 5/5 motor strength present throughout Romberg Test: Negative Assessment and Plan Assessment & Plan (1) Dizziness: Code(s): R42 - Dizziness and giddiness Plan: Multifactorial most likely psychosomatic, patient reassured (2) Major depressive disorder: Code(s): F32.9 - Major depressive disorder, single episode, unspecified Plan: Patient was advised to restart her anti depression medications and discuss her symptoms with counselor and psychiatrist (3) Hypertension: Code(s): I10 - Essential (primary) hypertension Plan: Patient was advised to restart taking amlodipine/benazepril daily the same time of the day at night and monitor her blood pressure only once a day. Patient will call in 1 week with her blood pressure readings Coding Level of Care Code Est Pt Level 4 (07148) Diagnoses Dizziness R42 Major depressive disorder F32.9 Hypertension I10
[2023-06-22 09:40] VITALS: BP 120/74; PULSE 72; O2SAT 98; BMI 24.1
== END 2023-06-22 10:35 | disposition home or self-care (01) ==
PROVIDERS: PCP Internal Medicine; Visit Provider Internal Medicine
DX: R42 Dizziness and giddiness (principal); F32.9 Major depressive disorder, single episode, unspecified; I10 Essential (primary) hypertension
CPT/HCPCS: 99214

== ENCOUNTER → 2023-07-04 10:54 | Outpatient (REF) | payer OTHER, SELFPAY ==
--- NOTE | 2023-07-04 10:56 | HM_ITS ---
Conclusion: 1. Patient was monitored for total period of 14 days 2. Baseline was normal sinus with average heart of 72 beats per minute 3. No pauses noted 4. Occasional PACs noted with total burden of 0.12% 5. Frequent episodes of SVT noted with fastest episode at 228 beats per minute and the longest episode lasting 21 beats per minute 6. No patient reported events MTDD
--- NOTE | 2023-07-04 10:56 | CA_ITS ---
Transthoracic Echocardiogram Patient (Last, First, Middle): Deepika Steel R Gender: Female Date of : 1960 Age: 62 Procedure Date: 07/04/2023 Procedure Type: Transthoracic Echocardiogram Location: OP Height: 172.72 cm Weight: 68.04 kg BSA: 1.81 m2 Heart Rate: 87 bpm BP: 130 / 72 mmHg Addiction Professional: SB Referring MD: Luis Armando Henley MD Symptoms: R55 - Syncope and collapse Study Quality: Adequate ECG Rhythm: Sinus Conclusions: - The left ventricular systolic function is hyperdynamic. The visually estimated ejection fraction is >70%. - No obvious valvular pathology seen on this study. Findings Left Ventricle Normal left ventricular cavity size. The left ventricular systolic function is hyperdynamic. The visually estimated ejection fraction is >70%. There is no evidence of regional wall motion abnormalities. Diastolic function is normal for age. There is mild septal asymmetric hypertrophy. Right Ventricle Normal right ventricular cavity size and systolic function. Atria Both atria are normal in size. Aortic Valve There is a normal trileaflet aortic valve. There is no aortic valve stenosis. There is no aortic valve regurgitation. Mitral Valve The mitral valve appears normal. There is no mitral valve regurgitation. There is no mitral valve stenosis. Pulmonic Valve The pulmonic valve is likely normal. Tricuspid Valve There is no tricuspid valve regurgitation. There is no evidence of pulmonary hypertension. Great Vessels The asc aorta is normal in size. Venous The inferior vena cava is normal in size and collapses greater than 50% with inspiration. Pericardium/Pleural Prominent epicardial adipose tissue noted. There is no evidence of pericardial effusion. Prior Study Comparison No prior study available for comparison. Recommendations, Care & Conclusions No obvious valvular pathology seen on this study. Measurements 2D Linear Measurements IVSd: 1.03 0.6-0.9/0.6-1.0 cm LVIDd: 4.31 3.9-5.3/4.2-5.9 cm LVIDd Index: 2.38 2.4-3.2/2.2-3.1 cm/m2 LVIDs: 2.75 2.0-3.6 cm LVPWd: 0.82 0.7-1.1 cm LA Diam: 3.20 2.7-3.8/3.0-4.0 cm LAIDs Index: 1.77 1.5-2.3 cm/m2 LV Mass: 159.95 67-162/88-224 g LV Mass Index: 88.37 43-95/49-115 g/m2 LVOT Diam: 2.00 3.0+(-)1.3 cm 2D Systolic Function EF 4C: 70.70 >55% EF 2C: 78.50 >55% EF BiP: 73.40 >55% Mitral Valve MV Pk E: 0.70 MV PK A: 0.81 MV Decel Time: 204.00 E/A: 0.90 E'Lateral: 7.72 E'Medial: 6.31 E/E' Med: 11.10 E/E' Lat: 9.10 PHT: 60.00 MVA PHT: 3.67 Decel Blair: 3.44 Aortic Valve AoV Pk Valeriy: 1.44 AoV Mn Valeriy: 1.03 AoV VTI: 0.30 AoV Pk Grad: 8.00 Aov Mn Grad: 5.00 LORRIE Cont.VTI: 3.37 LVOT LVOT Pk Valeriy: 1.51 LVOT Mn Valeriy: 1.06 LVOT VTI: 0.32 LVOT Pk Grad: 9.00 LVOT Mn Grad: 5.00 LVOT Diam: 2.00 LVOT Area: 3.14 Diastolic Function MV Pk E: 0.70 MV Pk A: 0.81 E/A: 0.90 E'Medial: 6.31 E/E' Med: 11.10 E' Laterial: 7.72 E/E' Lat: 9.10 Right Ventricle TAPSE (mm): 21.20 TVS' Valeriy: 11.90 Tricuspid Valve RA Press: 3.00 Great Vessels Aorta Sinus of Valsalva: 3.20 2.0-3.5 cm Ao Asc: 3.30 2.1-3.4 cm Pulmonary Veins Pulm Vein S/D 1.70 Pulmonary Valve PV Pk Valeriy: 0.94 Peak PV Grad: 4.00 Updated in Other Vendor System with Status of Final Luis Armando Henley MD electronically signed on 07/05/2023 11:49:49 AM with status of Final
== END ==
LOC: HO.CARD 10:54
PROVIDERS: PCP Internal Medicine; Visit Provider Internal Medicine
DX: I65.29 Occlusion and stenosis of unspecified carotid artery (principal); R55 Syncope and collapse
CPT/HCPCS: 93246; 93306

== ENCOUNTER → 2023-07-04 10:56 | Outpatient (BNV) | payer OTHER, SELFPAY | PROVIDERS: PCP Internal Medicine; Visit Provider Internal Medicine | DX: I47.1 Supraventricular tachycardia (principal) | CPT/HCPCS: 93248; 93306 ==

== ENCOUNTER 2023-07-08 15:40 | Emergency (ER) | payer OTHER, SELFPAY ==
--- NOTE | ~2023-07-08 | CT_ITS ---
EXAMINATION: CT ABDOMEN AND PELVIS WITHOUT CONTRAST CLINICAL INFORMATION: Abdominal pain, weakness, weight loss. COMPARISON: CT abdomen/pelvis 11/05/2016. TECHNIQUE: Multidetector volumetric imaging was performed from the superior aspect of the liver through the pubic symphysis. Sagittal and coronal reformatted images were obtained on the technologist's workstation. This CT examination was performed using dose optimization techniques as appropriate, variously including the following: *Automated exposure control *Adjustment of mA and/or kV according to patient size (this includes techniques or standardized protocols for targeted exams where dose is matched to indication/reason for exam; i.e. extremities or head) *Use of iterative reconstruction technique DLP: 422 mGy-cm FINDINGS: The lack of intravenous contrast limits evaluation of the solid visceral organs including the liver, spleen, pancreas, and kidneys. LUNG BASES: Bibasilar dependent subsegmental atelectasis. No focal consolidation or pleural effusion. Trace amount of pericardial fluid. LIVER, GALLBLADDER, AND BILIARY TREE: The noncontrast liver is normal in size, shape, and attenuation. No focal hepatic lesion or biliary ductal dilatation is present. The gallbladder is unremarkable with no evidence of radiopaque gallstones, gallbladder wall thickening, or obvious pericholecystic inflammatory changes. PANCREAS: Limited noncontrast examination. No significant peripancreatic fat stranding or free fluid. No main duct dilatation. SPLEEN: Normal size. ADRENAL GLANDS: Stable minimal thickening of the lateral limb of the left adrenal gland. No adrenal mass. KIDNEYS AND URETERS: No nephrolithiasis or hydronephrosis. Too small to characterize cortical hypodensities in the posterior mid left kidney (3:27) and upper left kidney (4:173) statistically favored to represent a simple cysts for which no imaging follow-up is recommended. There is a 0.9 cm macroscopic fat-containing cortical lesion in the anterior right kidney (3:23), most consistent with an angiomyolipoma. No significant perinephric fat stranding. BLADDER: Unremarkable. GASTROINTESTINAL TRACT: The stomach and the small bowel are nondilated. The appendix is not visualized, however there are no significant inflammatory changes to suspected acute appendicitis. No evidence of bowel obstruction. Mild colonic diverticulosis without significant pericolonic fat stranding or free fluid. ABDOMINAL WALL: No significant hernia is appreciated. LYMPH NODES: No lymphadenopathy. VASCULAR: Atherosclerotic disease. Abdominal aorta is normal in caliber. PELVIC VISCERA: Unremarkable. OSSEOUS STRUCTURES: Age indeterminate moderate superior endplate compression fracture at L1, new compared to 11/05/2016. Minimal retropulsion of the posterior fragment into the anterior spinal canal by approximately 2 mm. Multilevel degenerative changes of the spine. CT/CT abdomen pelvis wo IV con IMPRESSION: 1. Mild colonic diverticulosis but no evidence of acute diverticulitis. 2. Age indeterminate moderate superior endplate compression fracture at L1, new compared to 11/05/2016. Correlate with point tenderness. Further evaluation with an MRI of the lumbar spine could be obtained if clinically deemed appropriate.
[2023-07-08 15:50] VITALS: BP 147/85; PULSE 85; RESP 16; TEMP 36.9; O2SAT 97; BMI 23.3
--- NOTE | 2023-07-08 15:50 | ED_ITS ---
HPI - General Adult General Chief complaint: Weakness Stated complaint: unexplained weakness Time Seen by Provider: 07/08/23 17:37 Source: patient and old records reviewed Mode of arrival: ambulatory Limitations: no limitations History of Present Illness HPI narrative: 62 yo female with PMH of dizziness, depression, recent 1 month of fatigue and syncope in mammogram with PCP appointment as well for fatigue and weakness - she also notes 8 lb weight loss in 2 months. She denies depression. Just had normal ECHO this month, normal mammogram, CTA of head and neck in May showing both internal carotid arteries showing 25 - 50% carotid stenosis. She comes in today with persistent fatigue and weakness though she does walk for 30 minutes a night. She denies travel, fevers, tick bites. She notes sharp shooting pain in her head at times (states she only missed one day of her anti-depressant - this differs from her PCP notes) she is frustrated and upset. She denies she is depressed. MD complaint: fatigue Onset (ago): month(s) (1) Location: head Radiation: non-radiation Severity: moderate Quality: dull Pain Consistency: constant Relieving factors: none Exacerbating factors: none Associated symptoms: other (weight loss and fatigue) Treatments prior to arrival: other (mammogram, CTA head and neck, ECHO, holter monitor) Related Data Home Medications Medication Instructions Recorded Confirmed zolpidem 10 mg tablet 10 mg PO BEDTIME PRN 11/04/20 06/22/23 ezetimibe 10 mg tablet 10 mg PO DAILY 06/02/23 06/22/23 Previous Rx's Medication Instructions Recorded hydroxyzine HCl 25 mg tablet 25 mg PO TID PRN nausea and 02/23/21 vomiting #20 tabs amlodipine 5 mg-benazepril 10 mg 1 cap PO DAILY #90 caps 08/26/22 capsule propranolol 40 mg tablet 40 mg PO BID #180 tabs 03/09/23 acetaminophen 650 mg 650 mg PO Q12H #30 tabs 04/06/23 tablet,extended release aspirin 81 mg tablet,delayed 81 mg PO DAILY #90 tabs 06/23/23 release Allergies Allergy/AdvReac Type Severity Reaction Status Date / Time Iodinated Contrast Media Allergy Unconscious Verified 06/22/23 09:45 [IV Contrast Dye] alendronate sodium AdvReac Intermediate Dizziness Verified 06/22/23 10:27 [From Fosamax] atorvastatin AdvReac Intermediate hair loss Verified 06/22/23 09:45 Erythromycin Allergy Unknown Hives Uncoded 06/22/23 09:45 Review of Systems Review of Systems: Constitutional : No Fever, No Chills, pos Fatigue, pos weight loss ENT/Mouth : No sore throat, No Rhinorrhea Eyes: No Eye Pain, No Swelling, No Redness Cardiovascular : No Chest Pain, No SOB, No Dyspnea on Exertion Respiratory : No Cough, No Sputum Gastrointestinal : No Nausea, No Vomiting, No Diarrhea, pos abdominal Pain Genitourinary : No Dysuria, No Urinary Frequency, No Hematuria, Musculoskeletal : No joint pain, No Myalgias, No Joint Swelling Skin : No Skin Lesions, No rash Neuro : No Weakness, No Numbness, No Dizziness, positive Headache Psych : No Anxiety/Panic, No Depression All other systems reviewed and are negative [facility] Past Medical History Attestation statement: The following information was validated with the patient. Medical History Annual physical exam Anxiety disorder Bilateral hand pain Dysuria History of Papanicolaou smear of cervix Hx of bone density study Hyperlipidemia Hypertension IBS (irritable bowel syndrome) Major depressive disorder Positive serology for Helicobacter pylori Shoulder pain, bilateral Surgical History H/O colonoscopy History of appendectomy Social History Social History Housing: Apartment Alcohol intake: never Patient Tobacco Use Status: Former Tobacco user Quit Date: 03/26/2023 Cigarettes Per Day: 0 Smoked in Last 30 Days: No e-Cigarette/Vaping Use: Never Used Use of substances other than those prescribed or required for medical reasons: No Advance Directives: No Advance Directives Information Provided: No service: No Current occupational status: unemployed Cognitive needs: No Hearing needs: No Vision needs: Yes Physical Exam ED Vital Signs: Vital Signs - 24 hr 07/08/23 15:50 07/08/23 17:20 07/08/23 17:45 Temperature 98.5 F 99.1 F Pulse Rate 85 70 64 Respiratory Rate 16 16 20 Blood Pressure 147/85 H 152/86 H 161/79 H Pulse Oximetry 97 98 100 Oxygen Delivery Method Room Air Room Air Room Air 07/08/23 19:18 Temperature 98.4 F Pulse Rate 75 Respiratory Rate 13 Blood Pressure 157/79 H Pulse Oximetry 100 Oxygen Delivery Method Room Air BMI result Body Mass Index 23.3 Appearance: Alert. Oriented X3. No acute distress. seems frustrated and anxious Eyes: Pupils equal, round and reactive to light. ENT: Pharynx normal. Neck: Normal inspection. Neck supple. CVS: Normal heart rate and rhythm. Pulses normal. Respiratory: No respiratory distress. Breath sounds normal. Abdomen: Soft and mild L sided abdominal pain Skin: Skin warm and dry. Normal skin color. Normal skin turgor. Extremities: No lower extremity edema. No calf ttp Neuro: Oriented X 3. No motor deficit. No sensory deficit. NIH Stroke Scale Internal: Initial- Upon Arrival Time: 15:59 Level of Consciousness: Alert Level of Consciousness Questions: Answers both questions correctly Level of Consciousness Commands: Performs both tasks correctly Best Gaze: Normal Visual: No visual loss Facial Palsy: Normal Motor Arm (Right): No drift Motor Arm (Left): No drift Motor Leg (Right): No drift Motor Leg (Left): No drift Limb Ataxia: Absent Sensory: Normal Best Language: No aphasia Dysarthia: Normal Extinction and Inattention: No abnormality Score: 0 Course Course Course Narrative: This is a rapid medical exam: Additional HPI, ROS, PE not included below will be deferred to primary provider. Patient is a 62-year-old Faroese-speaking female presenting to the emergency department with brother who reports patient is weak, lightheaded, was seen here in May for similar symptoms, had echo on Tuesday. Complains of headache which worsened this morning, states has headaches nearly every other day. States every time she gets a headache she develops blurred vision. Denies chest pain or shortness of breath but does report palpitations. Patient is currently wearing a halter monitor, has had it on for one week, is scheduled to have it on for 2 weeks. No focal deficits. Plan: EKG, labs Medical Decision Making Medical Decision Making MDM Narrative: 62 yo female with PMH of dizziness, depression, recent 1 month of fatigue and syncope in mammogram with PCP appointment as well for fatigue and weakness at this time will need basic labs, TSH and given abdominal pain CT scan to rule out pathology given weight loss - she has had significant workup recently as outpatient. Differential Diagnosis Differential Diagnoses: The differential diagnosis associated with the presentation includes fatigue, thyroid issue, depression, medication withdrawal, abdominal mass Admission/Observation Consideration of admission/observation: Escalation of care including admission/observation considered this has been one month no acute findings today on CT Scan no back pain to suggest new fracture Lab Data MDM Lab Attestation statement: I reviewed the patient's lab results. 07/08/23 16:26 07/08/23 16:26 Labs: Lab Results 07/08/23 07/08/23 07/08/23 Range/Units 16:26 16:26 16:26 WBC 9.8 (4.8-10.8) X10*3/uL RBC 5.52 H (4.20-5.50) X10*6/uL Hgb 14.3 (12.0-16.0) g/dl Hct 44.1 (37.0-47.0) % MCV 79.9 L (80.0-98.0) fL MCH 25.9 L (27.0-33.0) pg MCHC 32.4 (31.0-35.0) g/dl RDW 13.3 (11.0-16.0) % Plt Count 294 (160-400) X10*3/uL MPV 10.3 (9.4-12.3) fL Immature Gran % (Auto) 0.3 (0.0-0.4) % Neut % (Auto) 74.4 H (45-73) % Lymph % (Auto) 19.6 L (20-40) % [place] % (Auto) 4.8 (2-11) % Eos % (Auto) 0.5 (0-4) % Baso % (Auto) 0.4 (0-2) % Lymph # (Auto) 1.9 (1.2-4.9) X10*3/uL [place] # (Auto) 0.5 (0.1-1.2) X10*3/uL Eos # (Auto) 0.1 (0.0-0.4) X10*3/uL Baso # (Auto) 0.0 (0.0-0.2) X10*3/uL Abs Immat Gran (auto) 0.03 (0.00-0.03) X10*3/uL Absolute Neuts (auto) 7.3 (2.0-8.3) x10*3/uL Absolute Nucleated RBC 0.000 (0.0-0.012) X10*3/uL Nucleated RBC % (auto) 0.0 (0.0-0.2) /100WBC Sodium 141 (135-145) mmol/L Potassium 4.1 (3.3-5.1) mmol/L Chloride 105 (96-108) mmol/L Carbon Dioxide 26 (22-29) mmol/L Anion Gap 14 (12-20) BUN 11 (9-16) mg/dL Creatinine 0.82 (0.5-1.4) mg/dL Estim Creat Clear Calc 69.9 Estimated GFR > 60 Random Glucose 102 (60-115) mg/dL Calcium 10.1 (8.4-10.2) mg/dL Total Bilirubin 0.5 (0.0-1.0) mg/dL AST 20 (5-31) U/L ALT 22 (0-31) U/L Alkaline Phosphatase 62 (39-117) U/L Troponin I High Sens < 2.7 (<3.5-17.0) ng/L Total Protein 7.9 (6.5-8.0) g/dL Albumin 4.7 (3.5-5.0) g/dL TSH 0.31 L (0.32-4.0) uIU/mL Free T4 1.16 (0.71-1.85) ng/dL Independent Interpretation I performed an independent interpretation of an: EKG and CT Scan (no back pain reported to suggest new fracture) Radiology Impression Discussion of test interpretation with radiology: I have reviewed the radiologist's reading. Independent Historian Clinical information obtained from an independent historian. History obtained from or confirmed by: Spouse External Record Review External record reviewed: Inpatient record, Office record and Prior outpatient radiology Discharge Plan Discharge Clinical Impression: Fatigue Qualifiers: Fatigue type: unspecified Qualified Code(s): R53.83 - Other fatigue Patient Disposition: Home, Self-Care Instructions: Fatigue (ED) Additional Instructions: today's workup did not find a cause of your fatigue and feeling this way. please call your doctor on Tuesday. return for fevers, worsening pain, confusion or any other concerns. your thyroid was stable, no obvious mass on CT scan, you do have old fracture on the back that would not cause your symptoms. Prescriptions: No Action amlodipine-benazepril 5-10 mg capsule 1 cap PO DAILY Qty: 90 3RF propranolol 40 mg tablet 40 mg PO BID Qty: 180 3RF aspirin 81 mg tablet,delayed release (DR/EC) 81 mg PO DAILY Qty: 90 3RF zolpidem 10 mg tablet 10 mg PO BEDTIME PRN hydroxyzine HCl 25 mg tablet 25 mg PO TID PRN (Reason: nausea and vomiting) Qty: 20 0RF acetaminophen 650 mg tablet extended release 650 mg PO Q12H Qty: 30 0RF ezetimibe 10 mg tablet 10 mg PO DAILY
--- NOTE | 2023-07-08 15:55 | ECG_ITS ---
Test Reason : DIZZINSS Blood Pressure : / mmHG Vent. Rate : 077 BPM Atrial Rate : 077 BPM P-R Int : 152 ms QRS Dur : 072 ms QT Int : 386 ms P-R-T Axes : 062 053 062 degrees QTc Int : 436 ms Normal sinus rhythm Normal ECG When compared with ECG of 23-MAY-2023 16:55, No significant change was found Referred By: Melania Fletcher Electronically Signed By:ESME VILLA
[2023-07-08 16:30] LABS: MANUAL DIFF FLAG NO
[2023-07-08 16:33] LABS: Basophils Percent Auto 0.4 % (0-2); Eosinophils Absolute Auto 0.1 X10*3/uL (0.0-0.4); Eosinophils Percent Auto 0.5 % (0-4); Hematocrit 44.1 % (37.0-47.0); Hemoglobin 14.3 g/dl (12.0-16.0); Imm Gran Abs Auto 0.03 X10*3/uL (0.00-0.03); Imm Gran Pct Auto 0.3 % (0.0-0.4); Lymphocytes Absolute Auto 1.9 X10*3/uL (1.2-4.9); Lymphocytes Percent Auto 19.6 % (20-40); Mean Corpuscular HGB Conc 32.4 g/dl (31.0-35.0); Mean Corpuscular Hemoglobin 25.9 pg (27.0-33.0); Mean Corpuscular Volume 79.9 fL (80.0-98.0); Mean Platelet Volume 10.3 fL (9.4-12.3); Monocytes Absolute Auto 0.5 X10*3/uL (0.1-1.2); Monocytes Percent Auto 4.8 % (2-11); Neutrophils Absolute Auto 7.3 x10*3/uL (2.0-8.3); Neutrophils Percent Auto 74.4 % (45-73); Platelet Count 294 X10*3/uL (160-400); Red Blood Count 5.52 X10*6/uL (4.20-5.50); Red Cell Distribution Width 13.3 % (11.0-16.0); White Blood Count 9.8 X10*3/uL (4.8-10.8)
[2023-07-08 16:47] LABS: Alanine Aminotransferase 22 U/L (0-31); Albumin Level 4.7 g/dL (3.5-5.0); Alkaline Phosphatase 62 U/L (39-117); Anion Gap 14 (12-20); Aspartate Amino Transferase 20 U/L (5-31); Bilirubin Total 0.5 mg/dL (0.0-1.0); Blood Urea Nitrogen 11 mg/dL (9-16); Calcium 10.1 mg/dL (8.4-10.2); Carbon Dioxide 26 mmol/L (22-29); Chloride 105 mmol/L (96-108); Creatinine Clr Calc Pharmacy 69.9; Estimated Glomerular Filt Rate > 60; Glucose Random 102 mg/dL (60-115); Potassium 4.1 mmol/L (3.3-5.1); Sodium 141 mmol/L (135-145); Total Protein 7.9 g/dL (6.5-8.0)
[2023-07-08 16:59] LABS: Troponin-I High Sensitivity < 2.7 ng/L (<3.5-17.0)
[2023-07-08 17:20] VITALS: BP 152/86; PULSE 70; RESP 16; TEMP 37.3; O2SAT 98
[2023-07-08 17:45] VITALS: BP 161/79; PULSE 64; RESP 20; O2SAT 100
--- NOTE | 2023-07-08 18:13 | PC.NURSE ---
pt reports increased weakness over the past month and was seen here a month ago for the same thing.. pt brother at bedside - pt symptoms have not resolved. Pt reports difficulty walking. denies pain
[2023-07-08 19:16] LABS: TSH reflex Free T4 0.31 uIU/mL (0.32-4.0)
[2023-07-08 19:18] VITALS: BP 157/79; PULSE 75; RESP 13; TEMP 36.9; O2SAT 100
[2023-07-08 19:49] LABS: Free T4 (Free Thyroxine) 1.16 ng/dL (0.71-1.85)
== END 2023-07-08 20:30 | disposition home or self-care (01) ==
PROVIDERS: Registered Nurse Emergency; Emergency Provider Emergency Medicine; PCP Internal Medicine
DX: R53.83 Other fatigue (principal); R42 Dizziness and giddiness; R10.2 Pelvic and perineal pain; Z87.891 Personal history of nicotine dependence; Z79.899 Other long term (current) drug therapy
CPT/HCPCS: 36415; 74176; 80053; 84439; 84443; 84484; 85025; 93005; 99284

== ENCOUNTER 2023-07-20 09:21 | Outpatient (REF) | payer OTHER, SELFPAY ==
--- NOTE | ~2023-07-20 | MR_ITS ---
EXAMINATION: MR BRAIN WITHOUT CONTRAST CLINICAL INFORMATION: Cerebral infarction, unspecified COMPARISON: None TECHNIQUE: Multiplanar multisequence MR imaging of the brain was obtained without intravenous contrast. FINDINGS: There is no acute infarct on diffusion-weighted imaging. There is no intracranial hemorrhage on iron-sensitive imaging. No extra-axial collection or mass effect/herniation. Normal parenchymal signal characteristics. No hydrocephalus. The ventricles are normal in morphology and size. The major flow voids at the skull base are preserved. The midline structures are normal. The cerebellar tonsils are normally positioned. The craniocervical junction is normal. Marrow signal is within normal limits. The visualized soft tissues are without significant abnormality. No signal abnormality within the paranasal sinuses or within the mastoid air cells. MR/MR head/brain wo con IMPRESSION: Unremarkable noncontrast MRI of the brain.
== END 2023-07-20 09:22 | disposition home or self-care (01) ==
LOC: HO.MRI 09:21
PROVIDERS: PCP Internal Medicine; Visit Provider Internal Medicine
DX: I63.9 Cerebral infarction, unspecified (principal)
CPT/HCPCS: 70551; 70553

== ENCOUNTER 2023-07-25 08:55 | Outpatient (AMB) | payer OTHER, SELFPAY ==
--- NOTE | 2023-07-25 09:03 | MHC.OFFVIS ---
Intake Vital Signs 07/25/23 09:04 Height 5 ft 8 in Weight 151 lb 3.794 oz BMI 23.0 BP 142/72 H Intake Visit Reasons: follow up after testing per HS Top Lift Compresser Required: Yes Top Lift Compresser Language: Guamanian Top Lift Compresser Name: manny [id number] cyracom Allergies Iodinated Contrast Media [IV Contrast Dye] Allergy (Verified 07/25/23 09:09) Unconscious alendronate sodium [From Fosamax] Adverse Reaction (Intermediate, Verified 07/25/23 09:09) Dizziness atorvastatin Adverse Reaction (Intermediate, Verified 07/25/23 09:09) hair loss Erythromycin Allergy (Unknown, Uncoded 06/22/23 09:45) Hives Medication List - Last Reconciled 07/25/23 by KASSANDRA MontezC amlodipine-benazepril 5-10 mg 1 cap PO DAILY aspirin 81 mg PO DAILY ezetimibe 10 mg PO DAILY hydroxyzine HCl 25 mg PO TID PRN mirtazapine 15 mg PO BEDTIME propranolol 40 mg PO BID zolpidem 10 mg PO BEDTIME PRN HPI follow up after testing per HS HPI Details Deepika is a 62-year-old female with past medical history of hypertension, hyperlipidemia, remote history of syncope who was recently seen in the [facility] following syncopal event versus possible CVA/TIA which occurred during mammogram when she became lightheaded, weak, faint. Testing showed mild carotid disease which was not felt to be a contributing factor. She was seen in cardiology follow-up wear an echocardiogram, Holter monitor and brain MRI were ordered. She now presents for follow-up. Today she reports that since her last visit she had another episode where she became lightheaded, weak and faint. She describes standing up an her home and had a headache and was putting ice on her head. She then had the symptoms. She was seen in the emergency room again without any significant findings. She admits to having good hydration. No chest discomfort at rest or with activity. No shortness of breath, PND, orthopnea or edema. She does feel brief intermittent heart palpitations. She does not recall having heart palpitations on the to recent time she was presyncopal. She tells me she use to have episodes like this as a child and young adult. She says in the past she had approximately 10 episodes but then did not have them for many years. She has been on propanolol for approximately 20 years for her hypertension. She drinks 1 caffeinated beverage daily. 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 [facility] Medical History Bilateral hand pain Shoulder pain, bilateral Annual physical exam Positive serology for Helicobacter pylori History of Papanicolaou smear of cervix Hx of bone density study Hyperlipidemia Anxiety disorder IBS (irritable bowel syndrome) Major depressive disorder Hypertension Dysuria Surgical History History of appendectomy H/O colonoscopy Social History Housing: Apartment Alcohol intake: never Patient Tobacco Use Status: Former Tobacco user Quit Date: 03/26/2023 Cigarettes Per Day: 0 e-Cigarette/Vaping Use: Never Used service: No Current occupational status: unemployed Cognitive needs: No Hearing needs: No Vision needs: Yes Review of Systems Const All systems reviewed & are unremarkable except as noted in HPI and below Card Reports syncope, Reports rapid heart rate and Reports palpitations Neuro Reports syncope Endo Reports palpitations Physical Exam Vital Signs: Last Vital Signs BP 142/72 H 07/25/23 09:04 BMI result Body Mass Index 23.0 Const General: cooperative, healthy appearing, comfortable and no acute distress Orientation/consciousness: patient oriented x3 Neck Neck: Yes normal visual inspection Resp Effort & Inspection: normal respiratory effort Auscultation: clear to auscultation bilaterally, no crackles, no rales, no rhonchi and no wheezes Cardio Jugular venous distension: no JVD Rate: regular rate Rhythm: regular rhythm Heart sounds: S1 normal heart sound present, S2 normal heart sound present, no murmurs and no rubs Neuro General: patient oriented x3 Extrem General: Yes normal to inspection and No no pedal edema Psych Appearance: grossly normal Mental Status: mental status grossly normal Speech and movement: Normal speech and movement present Assessment & Plan Assessment & Plan (1) Syncope: Code(s): R55 - Syncope and collapse Qualifiers: Syncope type: vasovagal syncope Qualified Code(s): R55 - Syncope and collapse Plan: 2 recent presyncopal episodes which the most like vasovagal syncope. One episode occurred while having a mammogram. The 2nd episode occurred during a significant headache at home. In both cases she was in a standing position. No full syncope. She does describe having history of syncope as a child and young adult and then did not have symptoms for many years. Initial concern for possible CVA/TIA however CT and CTA of the head showed no acute findings. She was found to have 25-50% carotid stenosis, both ICAs. On last visit a brain MRI was ordered, completed 07/20/2023 showing unremarkable study. An echocardiogram was done 07/04/2023 showing EF greater than 70%, no valve abnormalities. A Holter monitor was done 07/04/2023 for 14 days showing sinus rhythm with average heart rate 72, frequent episodes of SVT, longest 21 beats with rate up to 228 beats per minute. She does describe having feelings of rapid heartbeats at times. She does not recall this rapid heartbeat at the time of her presyncope events. Her syncope is most likely vasovagal in nature. Instructed to recognize symptoms and assume a sitting/lying down position. Maintain good hydration. Continue activity as tolerated. If symptoms persist will plan for tilt-table test going forward. Cardiology follow-up in 3 months, sooner if needed (2) Palpitations: Code(s): R00.2 - Palpitations Plan: Reported brief heart palpitations. Holter monitor confirms frequent short runs of SVT. Labs show recent TSH 0.31. TSH tends to run on the low side. She is currently on propanolol 40 mg b.i.d. and she tells me she has been on this for 20 years. Will increase her propanolol to 60 mg b.i.d.. Instructed on reducing caffeinated beverages. She does report some issues with anxiety. Stress reduction activities reviewed. Will recheck TSH. (3) SVT (supraventricular tachycardia): Code(s): I47.1 - Supraventricular tachycardia Plan: Brief episodes as above (4) Carotid stenosis: Code(s): I65.29 - Occlusion and stenosis of unspecified carotid artery Qualifiers: Laterality: bilateral Qualified Code(s): I65.23 - Occlusion and stenosis of bilateral carotid arteries Plan: Recent CTA of the head shows bilateral ICA stenosis, 25-50%. She is currently on aspirin 81 mg daily. She was intolerant to atorvastatin with hair loss. She is on Zetia for cholesterol control. Labs done 09/08/2022 showed LDL 157. She will need an updated fasting lipid profile. Will enter in system an ask her to obtain. (5) Hypertension: Code(s): I10 - Essential (primary) hypertension Qualifiers: Hypertension type: primary hypertension Qualified Code(s): I10 - Essential (primary) hypertension Plan: Mild elevation today. Increasing propanolol as above Orders: Orders Lipid Panel Today E78.5 - Hyperlipidemia, unspecified TSH reflex Free T4 Today I47.1 - Supraventricular tachycardia Medications: New propranolol 60 mg PO BID 30 days 60 tabs 5RF Discontinued propranolol Discontinued Reason: Doctor's Order 40 mg PO BID 180 tabs 3RF Coding Level of Care Code Est Pt Level 4 (20977) Diagnoses Vasovagal syncope R55 Syncope type: vasovagal syncope Palpitations R00.2 SVT (supraventricular tachycardia) I47.1 Bilateral carotid artery stenosis I65.23 Laterality: bilateral Primary hypertension I10 Hypertension type: primary hypertension Time Spent (min) 30 Comment
[2023-07-25 09:04] VITALS: BP 142/72; BMI 23.0
== END 2023-07-25 09:56 | disposition home or self-care (01) ==
PROVIDERS: PCP Internal Medicine; Referring Provider Internal Medicine; Visit Provider Nurse Practitioner Family
DX: R55 Syncope and collapse (principal); R00.2 Palpitations; I47.1 Supraventricular tachycardia; I65.23 Occlusion and stenosis of bilateral carotid arteries; I10 Essential (primary) hypertension
CPT/HCPCS: 99214

== ENCOUNTER → 2023-07-25 08:55 | Outpatient (BNVA) | payer OTHER, SELFPAY | PROVIDERS: PCP Internal Medicine; Referring Provider Internal Medicine; Visit Provider Nurse Practitioner Family | DX: R55 Syncope and collapse (principal); R00.2 Palpitations; I47.1 Supraventricular tachycardia; I65.23 Occlusion and stenosis of bilateral carotid arteries; I10 Essential (primary) hypertension | CPT/HCPCS: 99212 ==

== ENCOUNTER 2023-07-28 14:12 | Outpatient (AMB) | payer OTHER, SELFPAY ==
[2023-07-28 14:53] VITALS: BP 128/62; PULSE 83; RESP 12; O2SAT 96; BMI 23.3
--- NOTE | 2023-07-28 14:53 | A.OFFPC_ITS ---
Vital Signs 07/28/23 14:53 Height 5 ft 8 in Weight 153 lb BMI 23.3 BP 128/62 Blood Pressure Location Lt brachial Position Sitting Respiration 12 Pulse 83 Pulse Source Pulse Oximeter Pulse Oximetry (%) 96 Oxygen Delivery Method Room Air Intake Visit Reasons: 1 month follow up on BP Allergies Iodinated Contrast Media [IV Contrast Dye] Allergy (Verified 07/25/23 09:09) Unconscious alendronate sodium [From Fosamax] Adverse Reaction (Intermediate, Verified 07/25/23 09:09) Dizziness atorvastatin Adverse Reaction (Intermediate, Verified 07/25/23 09:09) hair loss Erythromycin Allergy (Unknown, Uncoded 06/22/23 09:45) Hives Medication List - Last Reconciled 07/28/23 by Lizette Samano MD amlodipine-benazepril 5-10 mg 1 cap PO DAILY aspirin 81 mg PO DAILY ezetimibe 10 mg PO DAILY hydroxyzine HCl 25 mg PO TID PRN mirtazapine 15 mg PO BEDTIME propranolol 60 mg PO BID 30 days zolpidem 10 mg PO BEDTIME PRN Tobacco use date assessed: 07/28/23 HPI 1 month follow up on BP HPI Details Pt presents for f/u of HTN, better controlled on current medications. Patient had normal echocardiogram and 2 week Holter monitor consistent with frequent SVTs. Propranolol dose was increased to 60 mg twice a day by the vice president quality assurance but patient did not start taking it yet. She had a CT angiogram of the neck consistent with 25-50% plaque at [facility] Medical History Bilateral hand pain Shoulder pain, bilateral Annual physical exam Positive serology for Helicobacter pylori History of Papanicolaou smear of cervix Hx of bone density study Hyperlipidemia Anxiety disorder IBS (irritable bowel syndrome) Major depressive disorder Hypertension Dysuria Surgical History History of appendectomy H/O colonoscopy Social History Housing: Apartment Alcohol intake: never Patient Tobacco Use Status: Former Tobacco user Quit Date: 03/26/2023 Cigarettes Per Day: 0 e-Cigarette/Vaping Use: Never Used service: No Current occupational status: unemployed Cognitive needs: No Hearing needs: No Vision needs: Yes Questionnaire Thrive Questionnaire Date Thrive assessed: 04/06/23 YOANA-7 AMB Questionnaire YOANA-7 Date YOANA - 7 assessed: 04/06/23 Source: Developed by Drs. Jf Sullivan, Elina Dunn, Luis Manuel Rodrigues and colleagues, with an educational bryan from [employer] Review of Systems Const All systems reviewed & are unremarkable except as noted in HPI and below Reports no additional complaints Eyes Reports no additional complaints ENT Reports no additional complaints Card Reports no additional complaints Resp Reports no additional complaints GI Reports no additional complaints Reports no additional complaints Physical exam (Primary Care) Vital Signs: Last Vital Signs Pulse 83 07/28/23 14:53 Resp 12 07/28/23 14:53 BP 128/62 07/28/23 14:53 Pulse Ox 96 07/28/23 14:53 Oxygen Delivery Method Room Air 07/28/23 14:53 BMI result Body Mass Index 23.3 Tobacco/Smoking Status: Tobacco use Status Tobacco use date assessed 07/28/23 07/28/23 15:01 Patient Tobacco Use Status Former Tobacco user 07/28/23 15:01 e-Cigarette/Vaping Use Never Used 07/28/23 15:01 Thrive Assessment: Date of Thrive Assessment Date Thrive assessed 04/06/23 07/28/23 15:01 Const General: no acute distress HENMT Head: Yes normal to inspection Ears: hearing grossly normal bilaterally Throat: Yes posterior oropharynx normal Neck Neck: Yes no lymphadenopathy and Yes supple Resp Effort & Inspection: normal respiratory effort Auscultation: clear to auscultation bilaterally Cardio Rhythm: regular rhythm Heart sounds: S1 normal heart sound present and S2 normal heart sound present GI Inspection: Yes normal to inspection Assessment and Plan Assessment & Plan (1) Hyperlipidemia: Comment: Intolerant to atorvastatin caused hair loss Code(s): E78.5 - Hyperlipidemia, unspecified Plan: Crestor 20 mg daily will be prescribed because of bilateral internal carotid artery stenosis. Patient will return in 2 months with a fasting labs before (2) Hypertension: Code(s): I10 - Essential (primary) hypertension Qualifiers: Hypertension type: primary hypertension Qualified Code(s): I10 - Essential (primary) hypertension Plan: Continue current medications (3) SVT (supraventricular tachycardia): Code(s): I47.1 - Supraventricular tachycardia Plan: Increase propranolol to 60 mg twice a day as per Cardiology and follow-up with Cardiology (4) Carotid stenosis: Comment: 25-50% stenosis at the origin of internal carotid arteries bilaterally Code(s): I65.29 - Occlusion and stenosis of unspecified carotid artery Qualifiers: Laterality: bilateral Qualified Code(s): I65.23 - Occlusion and stenosis of bilateral carotid arteries Plan: Start 20 mg of Crestor check lipid profile in 2 months (5) Osteoporosis: Comment: DEXA T score-2.7 in total femoral, intolerant to Fosamax because of acid reflux Code(s): M81.0 - Age-related osteoporosis without current pathological fracture Plan: Request infusion will be started after patient returns from [place] in August. Follow-up in 2 months with a fasting labs before Orders: Orders Comprehensive [place]. Panel Fast 2 Months E78.5 - Hyperlipidemia, unspecified, I10 - Essential (primary) hypertension Lipid Panel 2 Months E78.5 - Hyperlipidemia, unspecified, I10 - Essential (primary) hypertension Complete Blood Count Auto Diff 2 Months E78.5 - Hyperlipidemia, unspecified, I10 - Essential (primary) hypertension Medications: New rosuvastatin (Crestor) 20 mg PO DAILY 90 tabs 1RF zoledronic spra-jlytclal-nwruy 5 mg/100 mL (Reclast) 1 ea IV ONCE 100 mL 0RF Coding Level of Care Code Est Pt Level 4 (81304) Diagnoses Hyperlipidemia E78.5 Primary hypertension I10 Hypertension type: primary hypertension SVT (supraventricular tachycardia) I47.1 Bilateral carotid artery stenosis I65.23 Laterality: bilateral Osteoporosis M81.0
== END 2023-07-28 15:35 | disposition home or self-care (01) ==
PROVIDERS: PCP Internal Medicine; Visit Provider Internal Medicine
DX: E78.5 Hyperlipidemia, unspecified (principal); I10 Essential (primary) hypertension; I47.1 Supraventricular tachycardia; I65.23 Occlusion and stenosis of bilateral carotid arteries; M81.0 Age-related osteoporosis without current pathological fracture
CPT/HCPCS: 99214

== ENCOUNTER → 2023-09-02 10:45 | Outpatient (BNV) | payer OTHER, SELFPAY | PROVIDERS: PCP Internal Medicine; Visit Provider Radiology Diagnostic Radiology | DX: Z12.31 Encounter for screening mammogram for malignant neoplasm of breast (principal) | CPT/HCPCS: 77063; 77067 ==

== ENCOUNTER 2023-09-02 10:55 | Outpatient (REF) | payer OTHER, SELFPAY ==
--- NOTE | ~2023-09-02 | MM_ITS ---
EXAMINATION: MM SCREENING DIGITAL BREAST TOMOSYNTHESIS, LEFT CLINICAL INFORMATION: Screening. Asymptomatic. The patient returned to have left screening mammography since she was unable to tolerate completing her bilateral screening mammogram in May 2023. COMPARISON: Mammography: This study is compared with prior exams dating back to 2018. TECHNIQUE: Digital breast tomosynthesis is performed in both the craniocaudal and mediolateral oblique views along with computer-aided detection (CAD). Synthesized 2D images are generated from the tomosynthesis. FINDINGS: There are scattered areas of fibroglandular density (ACR BI-RADS breast composition Category b). There are no significant masses, abnormal calcifications, or other abnormalities. MM/MM tomosynthesis screening LT IMPRESSION: No mammographic evidence of malignancy. ASSESSMENT: BI-RADS BI-RADS 1 - Negative RECOMMENDATION: Routine annual mammography screening. 1 year F/U This examination should not preclude the clinical evaluation of a suspicious palpable abnormality. This patient's information was entered into a reminder system with a target due date for their next mammogram.
== END 2023-09-02 10:56 | disposition home or self-care (01) ==
LOC: HO.MAMMO 10:55
PROVIDERS: PCP Internal Medicine; Visit Provider Internal Medicine
DX: Z12.31 Encounter for screening mammogram for malignant neoplasm of breast (principal)
CPT/HCPCS: 77063; 77067

== ENCOUNTER 2023-09-05 10:32 | Outpatient (REF) | payer OTHER, SELFPAY ==
[2023-09-05 13:45] LABS: MANUAL DIFF FLAG NO
[2023-09-05 14:22] LABS: Alanine Aminotransferase 37 U/L (0-31); Albumin Level 4.3 g/dL (3.5-5.0); Alkaline Phosphatase 73 U/L (39-117); Anion Gap 13 (12-20); Aspartate Amino Transferase 30 U/L (5-31); Basophils Absolute Auto 0.1 X10*3/uL (0.0-0.2); Basophils Percent Auto 0.5 % (0-2); Bilirubin Total 0.6 mg/dL (0.0-1.0); Blood Urea Nitrogen 12 mg/dL (9-16); Calcium 9.9 mg/dL (8.4-10.2); Carbon Dioxide 26 mmol/L (22-29); Chloride 105 mmol/L (96-108); Cholesterol 129 mg/dL (<200); Eosinophils Absolute Auto 0.2 X10*3/uL (0.0-0.4); Eosinophils Percent Auto 1.5 % (0-4); Estimated Glomerular Filt Rate > 60; Glucose Fasting 108 mg/dL (60-99); HDL Cholesterol 44 mg/dL (>40); Hematocrit 45.2 % (37.0-47.0); Hemoglobin 14.2 g/dl (12.0-16.0); Imm Gran Abs Auto 0.03 X10*3/uL (0.00-0.03); Imm Gran Pct Auto 0.3 % (0.0-0.4); LDL Cholesterol Calculated 63 mg/dL (<100); Lymphocytes Percent Auto 17.4 % (20-40); Mean Corpuscular HGB Conc 31.4 g/dl (31.0-35.0); Mean Corpuscular Hemoglobin 25.9 pg (27.0-33.0); Mean Corpuscular Volume 82.5 fL (80.0-98.0); Mean Platelet Volume 11.5 fL (9.4-12.3); Monocytes Percent Auto 8.5 % (2-11); Neutrophils Absolute Auto 8.1 x10*3/uL (2.0-8.3); Neutrophils Percent Auto 71.8 % (45-73); Platelet Count 262 X10*3/uL (160-400); Potassium 4.1 mmol/L (3.3-5.1); Red Blood Count 5.48 X10*6/uL (4.20-5.50); Red Cell Distribution Width 13.7 % (11.0-16.0); Sodium 140 mmol/L (135-145); TSH reflex Free T4 0.58 uIU/mL (0.32-4.0); Total Protein 7.6 g/dL (6.5-8.0); Triglycerides 111 mg/dL (<150); White Blood Count 11.3 X10*3/uL (4.8-10.8)
== END 2023-09-05 10:33 | disposition home or self-care (01) ==
LOC: HO.HMGCLDS 10:32
PROVIDERS: PCP Internal Medicine; Visit Provider Internal Medicine
DX: E78.5 Hyperlipidemia, unspecified (principal); I10 Essential (primary) hypertension; M81.0 Age-related osteoporosis without current pathological fracture
CPT/HCPCS: 36415; 80053; 80061; 84443; 85025

== ENCOUNTER 2023-09-06 12:36 | Outpatient (AMB) | payer OTHER, SELFPAY ==
[2023-09-06 12:38] VITALS: BP 120/80; PULSE 98; O2SAT 97; BMI 23.0
--- NOTE | 2023-09-06 12:38 | MHC.PC.OV ---
Vital Signs 09/06/23 12:38 Height 5 ft 8 in Weight 151 lb BMI 23.0 BP 120/80 Blood Pressure Location Lt brachial Position Sitting Pulse 98 Pulse Source Pulse Oximeter Pulse Oximetry (%) 97 Oxygen Delivery Method Room Air Intake Visit Reasons: Annual PE Intake Note: Pt is here today for PE.Pt states that she has been having cough, congestion for last 4 days. Allergies Iodinated Contrast Media [IV Contrast Dye] Allergy (Verified 09/06/23 12:39) Unconscious alendronate sodium [From Fosamax] Adverse Reaction (Intermediate, Verified 09/06/23 12:39) Dizziness atorvastatin Adverse Reaction (Intermediate, Verified 09/06/23 12:39) hair loss Erythromycin Allergy (Unknown, Uncoded 09/06/23 12:39) Hives Medication List - Last Reconciled 09/06/23 by Lizette Samano MD amlodipine-benazepril 5-10 mg 1 cap PO DAILY aspirin 81 mg PO DAILY hydroxyzine HCl 25 mg PO TID PRN mirtazapine 15 mg PO BEDTIME propranolol 60 mg PO BID 30 days rosuvastatin (Crestor) 20 mg PO DAILY zoledronic upel-prgqspea-jmgvw 5 mg/100 mL (Reclast) 1 ea IV ONCE zolpidem 10 mg PO BEDTIME PRN Tobacco use date assessed: 09/06/23 Fall risk assessment: No Falls in past year Last assessed Fall Risk: 09/06/23 Dental Screening Dental Screen Date: 09/06/23 Did you have a dental visit in the last 12 months?: Yes Did you have a dental problem in the last 6 months where you did not have access to dental care?: No Was dental information given to patient?: Patient has dentist HPI Annual PE HPI Details Pt presents for PE. Pt c/o sore throat, productive cough with green sputum, body aches. PFSH Medical History Bilateral hand pain Shoulder pain, bilateral Annual physical exam Positive serology for Helicobacter pylori History of Papanicolaou smear of cervix Hx of bone density study Hyperlipidemia Anxiety disorder IBS (irritable bowel syndrome) Major depressive disorder Hypertension Dysuria Surgical History History of appendectomy H/O colonoscopy Family History Father No problems noted. Mother Hypertension Social History Housing: Apartment Alcohol intake: never Patient Tobacco Use Status: Former Tobacco user Quit Date: 03/26/2023 Cigarettes Per Day: 0 e-Cigarette/Vaping Use: Never Used service: No Current occupational status: unemployed Cognitive needs: No Hearing needs: No Vision needs: Yes Questionnaire Thrive Questionnaire Date Thrive assessed: 04/06/23 YOANA-7 AMB Questionnaire YOANA-7 Date YOANA - 7 assessed: 04/06/23 Source: Developed by Drs. Jf Sullivan, Elina Dunn, Luis Manuel Rodrigues and colleagues, with an educational bryan from [employer]. Review of Systems Const All systems reviewed & are unremarkable except as noted in HPI and below Reports no additional complaints Eyes Reports no additional complaints ENT Reports no additional complaints Card Reports no additional complaints Resp Reports no additional complaints GI Reports no additional complaints Reports no additional complaints Physical exam (Primary Care) Vital Signs: Last Vital Signs Pulse 98 09/06/23 12:38 BP 140/80 H 09/06/23 12:38 Pulse Ox 97 09/06/23 12:38 Oxygen Delivery Method Room Air 09/06/23 12:38 BMI result Body Mass Index 23.0 Tobacco/Smoking Status: Tobacco use Status Tobacco use date assessed 09/06/23 09/06/23 12:44 Patient Tobacco Use Status Former Tobacco user 09/06/23 12:39 e-Cigarette/Vaping Use Never Used 09/06/23 12:39 Thrive Assessment: Date of Thrive Assessment Date Thrive assessed 04/06/23 09/06/23 12:39 Const General: no acute distress HENMT Head: Yes normal to inspection General nose exam: Abnormal mucous membranes and turbinates present erythematous Face and sinus: Yes sinus tenderness Throat: Yes posterior oropharynx abnormal and Yes postnasal drainage Eyes General: appearance normal, both eyes and all related structures Neck Neck: Yes supple Resp Effort & Inspection: normal respiratory effort Auscultation: rhonchi Cardio Rhythm: regular rhythm Heart sounds: S1 normal heart sound present and S2 normal heart sound present GI Inspection: Yes normal to inspection Palpation (GI): Soft to palpation Percussion: Yes normal to percussion Auscultation: normal bowel sounds Assessment and Plan Assessment & Plan (1) Hyperlipidemia: Comment: Intolerant to atorvastatin caused hair loss Code(s): E78.5 - Hyperlipidemia, unspecified Plan: Patient will take Crestor 20 mg every other day and check lipid profile in 3 months (2) Osteoporosis: Comment: DEXA T score-2.7 in total femoral, intolerant to Fosamax because of acid reflux Code(s): M81.0 - Age-related osteoporosis without current pathological fracture Plan: Patient will be scheduled for Reclast infusion and repeat DEXA in 1 year (3) Major depressive disorder: Comment: Follow-up with Psychiatry Code(s): F32.9 - Major depressive disorder, single episode, unspecified (4) Annual physical exam: Code(s): Z00.00 - Encounter for general adult medical examination without abnormal findings Plan: Well-balanced diet regular exercise discussed with the patient. She is up-to-date with mammogram and Pap smear and Cologuard will be checked for colon cancer screening. Follow-up in 6 months. (5) Sinusitis: Code(s): J32.9 - Chronic sinusitis, unspecified Plan: For acute sinusitis zpak is prescribed and supportive care discussed with the patient Orders: Orders Lipid Panel 3 Months E78.5 - Hyperlipidemia, unspecified Referrals Cologuard Test Z12.11 - Encounter for screening for malignant neoplasm of colon, Z12.12 - Encounter for screening for malignant neoplasm of rectum Medications: New azithromycin For 250 mg dose pack: take 500 mg today (day 1), then 250 mg for 4 days (days 2-5) PO 6 tabs 0RF Coding Level of Care Code Est Pt Prev Care 40-64y(16510) Diagnoses Hyperlipidemia E78.5 Osteoporosis M81.0 Major depressive disorder F32.9 Annual physical exam Z00.00 Sinusitis J32.9
== END 2023-09-06 13:34 | disposition home or self-care (01) ==
PROVIDERS: PCP Internal Medicine; Visit Provider Internal Medicine
DX: Z00.00 Encounter for general adult medical examination without abnormal findings (principal); E78.5 Hyperlipidemia, unspecified; M81.0 Age-related osteoporosis without current pathological fracture; F32.9 Major depressive disorder, single episode, unspecified; J32.9 Chronic sinusitis, unspecified
CPT/HCPCS: 99396

== ENCOUNTER 2023-10-25 13:10 | Outpatient (AMB) | payer MEDICARE, SELFPAY ==
[2023-10-25 13:22] VITALS: BP 142/90; PULSE 94; BMI 23.5
--- NOTE | 2023-10-25 13:22 | MHC.OFFVIS ---
Intake Vital Signs 10/25/23 13:22 Height 5 ft 8 in Weight 154 lb 12.232 oz BMI 23.5 BP 142/90 H Blood Pressure Location Lt brachial Position Sitting Pulse 94 Pulse Source Pulse Oximeter Intake Visit Reasons: 3 month fu Paper Bundler Required: Yes Paper Bundler Language: Lithuanian Paper Bundler Name: calvin [id number] Allergies Iodinated Contrast Media [IV Contrast Dye] Allergy (Verified 10/25/23 13:30) Unconscious alendronate sodium [From Fosamax] Adverse Reaction (Intermediate, Verified 10/25/23 13:30) Dizziness atorvastatin Adverse Reaction (Intermediate, Verified 10/25/23 13:30) hair loss Erythromycin Allergy (Unknown, Uncoded 09/06/23 12:39) Hives Medication List - Last Reconciled 10/25/23 by DIYA Montez amlodipine-benazepril 5-10 mg 1 cap PO DAILY amoxicillin-pot clavulanate 875-125 mg 1 tab PO BID 10 days aspirin 81 mg PO DAILY azithromycin For 250 mg dose pack: take 500 mg today (day 1), then 250 mg for 4 days (days 2-5) PO hydroxyzine HCl 25 mg PO TID PRN propranolol 60 mg PO BID 30 days rosuvastatin (Crestor) 20 mg PO DAILY zoledronic wuwq-lhzcsyqv-[id number] 5 mg/100 mL (Reclast) 1 ea IV ONCE zolpidem 10 mg PO BEDTIME PRN HPI 3 month fu HPI Details Deepika is a 63-year-old female with past medical history of hypertension, hyperlipidemia, remote history of syncope who was recently seen in the [facility] following syncopal event versus possible CVA/TIA which occurred during mammogram when she became lightheaded, weak, faint. Testing showed mild carotid disease which was not felt to be a contributing factor. On last visit she described having a second presyncope event which occured during headache. Her presyncope was felt to be vasovagal events. She underwent outpt Holter showing brief episodes of SVT. Her propranolol dose was increased. Today she reports she has been having increasing heart palpitations. She says her episodes are occurring daily. They are brief lasting seconds but they do cause her to be anxious. She tells me that heart disease runs in her family and she does not know why. She is actually tearful and tremors during her visit. She has not had any recurrent presyncopal events. No chest discomfort at rest or with activity. No shortness of breath, PND, orthopnea or edema. She has been doing only light activity. She says she does not sleep well and this is making her anxious. She continues to drink 1 caffeinated beverage a day. She is taking her meds as directed. [facility] Medical History Bilateral hand pain Shoulder pain, bilateral Annual physical exam Positive serology for Helicobacter pylori History of Papanicolaou smear of cervix Hx of bone density study Hyperlipidemia Anxiety disorder IBS (irritable bowel syndrome) Major depressive disorder Hypertension Dysuria Surgical History History of appendectomy H/O colonoscopy Family History Father No problems noted. Mother Hypertension Social History Housing: Apartment Alcohol intake: never Patient Tobacco Use Status: Former Tobacco user Quit Date: 03/26/2023 Cigarettes Per Day: 0 e-Cigarette/Vaping Use: Never Used service: No Current occupational status: unemployed Cognitive needs: No Hearing needs: No Vision needs: Yes Review of Systems Const All systems reviewed & are unremarkable except as noted in HPI and below ENT Denies dizziness Card Denies chest pain, Denies chest pain at rest, Denies chest pain with activity, Denies rapid heart rate, Denies pedal edema, Denies edema, Denies leg edema, Denies lightheadedness, Reports palpitations, Denies dyspnea, Denies dyspnea on exertion and Denies orthopnea Resp Denies cough, Denies dyspnea and Denies dyspnea on exertion GI Denies hematochezia and Denies change in stool character Musc Denies abnormal gait, Denies limited range of motion, Denies muscle cramps, Denies muscle weakness, Denies numbness, Denies radiating pain into limb, Denies stiffness and Denies tingling Neuro Denies abnormal gait, Denies dizziness, Denies numbness and Denies tingling Endo Reports palpitations Physical Exam Vital Signs: Last Vital Signs Pulse 94 10/25/23 13:22 BP 142/90 H 10/25/23 13:22 BMI result Body Mass Index 23.5 Const General: cooperative, healthy appearing, comfortable and no acute distress Orientation/consciousness: patient oriented x3 Neck Neck: Yes normal visual inspection Resp Effort & Inspection: normal respiratory effort Auscultation: clear to auscultation bilaterally, no crackles, no rales, no rhonchi and no wheezes Cardio Jugular venous distension: no JVD Rate: regular rate Rhythm: regular rhythm Heart sounds: S1 normal heart sound present, S2 normal heart sound present, no murmurs and no rubs Neuro General: patient oriented x3 Extrem General: Yes normal to inspection and No no pedal edema Psych Appearance: grossly normal Mental Status: mental status grossly normal Speech and movement: Normal speech and movement present Assessment & Plan Assessment & Plan (1) Palpitations: Code(s): R00.2 - Palpitations Plan: On prior visit reported brief heart palpitations. Holter monitor confirmed frequent short runs of SVT. TSH does run on the low side. Labs done 09/05/2023 showed TSH 0.58, potassium 4.1. She had been on propanolol long-term mac 40 mg b.i.d.. On last visit her dose was increased to 60 mg b.i.d.. Today she reports that her palpitations have increased. She is now having brief rapid heartbeats occurring daily. She also is very anxious at this visit, tremulous and tearful. She says she is not sleeping well due to anxiety. She is drinking 1 caffeinated beverage daily. Discussed stress reduction activities. Options for medications to assist with sleep such as Tylenol p.m.. She states she is not able to take melatonin as it gives her a headache. Instructed on decaf drinks only. Will increase her propanolol to 80 mg b.i.d. as heart rate and blood pressure are elevated today. Pulse check done by me, 104 and blood pressure recheck 162/84. Will plan recheck of Holter prior to her next visit. Cardiology follow-up in 3 months, sooner if needed. Emergency care if ever needed for sustained rapid heart palpitations. (2) Syncope: Code(s): R55 - Syncope and collapse Qualifiers: Syncope type: vasovagal syncope Qualified Code(s): R55 - Syncope and collapse Plan: 2 recent presyncopal episodes which are most likely related vasovagal events. One episode occurred while having a mammogram. The 2nd episode occurred during a significant headache at home. In both cases she was in a standing position. No full syncope. She does describe having history of syncope as a child and young adult and then did not have symptoms for many years. Initial concern for possible CVA/TIA, at ER visit however CT and CTA of the head showed no acute findings. She was found to have 25-50% carotid stenosis, both ICAs. Brain MRI 07/20/2023 unremarkable study. An echocardiogram was done 07/04/2023 showing EF greater than 70%, no valve abnormalities. A Holter monitor was done 07/04/2023 for 14 days showing sinus rhythm with average heart rate 72, frequent episodes of SVT, longest 21 beats with rate up to 228 beats per minute. She does describe having feelings of rapid heartbeats at times as above. She does not recall having heart palpitations during the time of her presyncope events. She has had no recurrent events since her last visit. Based on all the above it seems that her events are vasovagal in nature. Instructed to recognize symptoms and assume a sitting/lying down position. Maintain good hydration. Continue activity as tolerated. If symptoms reoccur will plan for tilt-table test going forward. (3) SVT (supraventricular tachycardia): Code(s): I47.1 - Supraventricular tachycardia Plan: As above (4) Carotid stenosis: Comment: 25-50% stenosis at the origin of internal carotid arteries bilaterally Code(s): I65.29 - Occlusion and stenosis of unspecified carotid artery Qualifiers: Laterality: bilateral Qualified Code(s): I65.23 - Occlusion and stenosis of bilateral carotid arteries Plan: Recent CTA of the head shows bilateral ICA stenosis, 25-50%. She is currently on aspirin 81 mg daily. She was intolerant to atorvastatin with hair loss. She is on Zetia for cholesterol control. Labs done on 09/05/2023 shows LDL 63. Well controlled at this time (5) Hypertension: Code(s): I10 - Essential (primary) hypertension Qualifiers: Hypertension type: primary hypertension Qualified Code(s): I10 - Essential (primary) hypertension Plan: Mild elevation today. Increasing propanolol as above Plan Time spent on chart review, documentation, interview and assessment Orders: Orders ECG 3 day holter monitor 01/13/24 I47.1 - Supraventricular tachycardia Medications: New propranolol dose increased 80 mg PO BID 60 tabs 5RF Discontinued propranolol Discontinued Reason: Doctor's Order 60 mg PO BID 30 days 60 tabs 5RF Coding Level of Care Code Est Pt Level 4 (93126) Diagnoses Palpitations R00.2 Vasovagal syncope R55 Syncope type: vasovagal syncope SVT (supraventricular tachycardia) I47.1 Bilateral carotid artery stenosis I65.23 Laterality: bilateral Primary hypertension I10 Hypertension type: primary hypertension Time Spent (min) 28
== END 2023-10-25 14:13 | disposition home or self-care (01) ==
PROVIDERS: PCP Internal Medicine; Visit Provider Nurse Practitioner Family
DX: R00.2 Palpitations (principal); R55 Syncope and collapse; I47.1 Supraventricular tachycardia; I65.23 Occlusion and stenosis of bilateral carotid arteries; I10 Essential (primary) hypertension
CPT/HCPCS: 99214

== ENCOUNTER → 2023-10-25 13:10 | Outpatient (BNVA) | payer MEDICARE, OTHER, SELFPAY | PROVIDERS: PCP Internal Medicine; Visit Provider Nurse Practitioner Family | DX: R00.2 Palpitations (principal); R55 Syncope and collapse; I47.19 Other supraventricular tachycardia; I65.23 Occlusion and stenosis of bilateral carotid arteries; I10 Essential (primary) hypertension | CPT/HCPCS: 99212 ==

== ENCOUNTER → 2023-12-21 15:00 | Outpatient (REF) | payer MEDICARE, MEDICAID, SELFPAY ==
--- NOTE | 2023-12-21 15:03 | HM_ITS ---
Conclusion: 1. Patient was monitored for total period of 2 days and 23 hours 2. Baseline was normal sinus with average heart of 69 beats per minute 3. Rare PACs noted 4. No significant pauses noted 5. No patient reported events MTDD
== END ==
LOC: HO.CARD 15:00
PROVIDERS: PCP Internal Medicine; Visit Provider Nurse Practitioner Family
DX: I47.10 Supraventricular tachycardia, unspecified (principal)
CPT/HCPCS: 93242

== ENCOUNTER → 2023-12-21 15:03 | Outpatient (BNV) | payer MEDICARE, MEDICAID, SELFPAY | PROVIDERS: PCP Internal Medicine; Visit Provider Internal Medicine Cardiovascular Disease | DX: I49.1 Atrial premature depolarization (principal) | CPT/HCPCS: 93244 ==

== ENCOUNTER 2024-01-24 13:57 | Outpatient (AMB) | payer MEDICARE, MEDICAID, SELFPAY ==
[2024-01-24 14:00] VITALS: BP 110/54; PULSE 87; BMI 23.9
--- NOTE | 2024-01-24 14:00 | A.OFFVIS_ITS ---
Intake Vital Signs 01/24/24 14:00 Height 5 ft 8 in Weight 157 lb 6.561 oz BMI 23.9 BP 110/54 L Blood Pressure Location Lt brachial Position Sitting Pulse 87 Pulse Source Pulse Oximeter Intake Visit Reasons: 3 mth f/up holter Intake Note: pt here for 3 mnth f/up holter/ Manager Credit Collections Required: Yes Manager Credit Collections Name: philly/calvin [id number] Accompanied by: Self / Same As Patient Allergies Iodinated Contrast Media [IV Contrast Dye] Allergy (Verified 10/25/23 13:30) Unconscious alendronate sodium [From Fosamax] Adverse Reaction (Intermediate, Verified 10/25/23 13:30) Dizziness atorvastatin Adverse Reaction (Intermediate, Verified 10/25/23 13:30) hair loss Erythromycin Allergy (Unknown, Uncoded 09/06/23 12:39) Hives Medication List - Last Reconciled 01/24/24 by Nae Pa, [employer]ANE OPERATOR-C amlodipine-benazepril 5-10 mg 1 cap PO DAILY azithromycin For 250 mg dose pack: take 500 mg today (day 1), then 250 mg for 4 days (days 2-5) PO hydroxyzine HCl 25 mg PO TID PRN propranolol 80 mg PO BID rosuvastatin (Crestor) 20 mg PO DAILY zolpidem 10 mg PO BEDTIME PRN HPI 3 mth f/up holter HPI Details Deepika is a 63-year-old female past medical history of hypertension, hyperlipidemia, remote history of syncope, more recent syncopal event that occurred during mammogram. Episode was felt to be vasovagal in nature. Holter monitor did show brief episodes of SVT. Her propanolol dose was increased. Today she reports that she has been doing generally well since her last visit in October. She has had no issues with presyncope, syncope, falls. She does describe much anxiety and stress in her life. No chest discomfort, shortness of breath, PND, orthopnea or edema. Her heart palpitations overall have lessened with the higher dose propranolol. She continues to drink 1 caffeinated beverage a day. She does only light physical activity. 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 [facility] Medical History Bilateral hand pain Shoulder pain, bilateral Annual physical exam Positive serology for Helicobacter pylori History of Papanicolaou smear of cervix Hx of bone density study Hyperlipidemia Anxiety disorder IBS (irritable bowel syndrome) Major depressive disorder Hypertension Dysuria Surgical History History of appendectomy H/O colonoscopy Family History Father No problems noted. Mother Hypertension Social History Housing: Apartment Alcohol intake: never Patient Tobacco Use Status: Former Tobacco user Quit Date: 03/26/2023 Cigarettes Per Day: 0 e-Cigarette/Vaping Use: Never Used service: No Current occupational status: unemployed Cognitive needs: No Hearing needs: No Vision needs: Yes Review of Systems Const Details: anxiety All systems reviewed & are unremarkable except as noted in HPI and below Denies chills, Denies fatigue, Denies fever(s), Denies frequent falls, Denies weakness, Denies weight gain and Denies weight loss ENT Denies dizziness Card Denies chest pain, Denies leg edema, Denies lightheadedness, Denies palpitations, Denies dyspnea and Denies dyspnea on exertion Resp Denies cough, Denies dyspnea and Denies dyspnea on exertion GI Denies hematochezia Musc Denies abnormal gait, Denies muscle weakness, Denies numbness, Denies radiating pain into limb and Denies tingling Neuro Denies abnormal gait, Denies dizziness, Denies frequent falls, Denies numbness, Denies tingling and Denies weakness Endo Denies fatigue and Denies palpitations Physical Exam Vital Signs: Last Vital Signs Pulse 87 01/24/24 14:00 BP 110/54 L 01/24/24 14:00 BMI result Body Mass Index 23.9 Const General: cooperative, healthy appearing, comfortable and no acute distress Orientation/consciousness: patient oriented x3 Neck Neck: Yes normal visual inspection Resp Effort & Inspection: normal respiratory effort Auscultation: clear to auscultation bilaterally, no crackles, no rales, no rhonchi and no wheezes Cardio Jugular venous distension: no JVD Rate: regular rate Rhythm: regular rhythm Heart sounds: S1 normal heart sound present, S2 normal heart sound present, no murmurs and no rubs Neuro General: patient oriented x3 Extrem General: Yes normal to inspection and No no pedal edema Psych Appearance: grossly normal Mental Status: mental status grossly normal Speech and movement: Normal speech and movement present Assessment & Plan Assessment & Plan (1) Palpitations: Code(s): R00.2 - Palpitations Plan: On prior visit reported brief heart palpitations. Holter monitor confirmed frequent short runs of SVT. TSH does run on the low side. Labs done 09/05/2023 showed TSH 0.58, potassium 4.1. She had been on propanolol long-term at 40 mg b.i.d.. On prior visit her dose was increased to 60 mg b.i.d. and she continued to report heart palpitations with brief rapid heartbeats occurring daily. She admits to having high anxiety. She is drinking 1 caffeinated beverage daily. On last visit her propranolol dose was increased again up to 80 mg b.i.d.. A Holter monitor done on 12/21/2023 for 3 days showed sinus rhythm with average heart rate 69, rare PACs. At this time she is reporting an improvement in her heart palpitations. She will get them occasionally. Continue current propanolol dose. Discussed reduction in caffeinated beverages, stress reduction activities, increasing physical activity. Continue follow with her mental health therapist. SVT seems well controlled at this time. Cardiology follow-up in 1 year, sooner if needed. Emergency care if ever needed for sustained rapid heart palpitations. (2) Syncope: Code(s): R55 - Syncope and collapse Qualifiers: Syncope type: vasovagal syncope Qualified Code(s): R55 - Syncope and collapse Plan: 2 recent presyncopal episodes this past year which are most likely related vasovagal events. One episode occurred while having a mammogram. The 2nd episode occurred during a significant headache at home. In both cases she was in a standing position. No full syncope. She does describe having history of syncope as a child and young adult and then did not have symptoms for many years. Initial concern for possible CVA/TIA, at ER visit however CT and CTA of the head showed no acute findings. She was found to have 25-50% carotid stenosis, both ICAs. Brain MRI 07/20/2023 unremarkable study. An echocardiogram was done 07/04/2023 showing EF greater than 70%, no valve abnormalities. Initial Holter monitor was done 07/04/2023 for 14 days showing sinus rhythm with average heart rate 72, frequent episodes of SVT, longest 21 beats with rate up to 228 beats per minute. She does describe having feelings of rapid heartbeats at times as above. She does not recall having heart palpitations during the time of her presyncope events. She has had no recurrent events in the last several months. Based on all the above it seems that her events were vasovagal in nature. Instructed to recognize symptoms and assume a sitting/lying down position. Maintain good hydration. Continue activity as tolerated. If s ymptoms reoccur will plan for tilt-table test going forward. (3) SVT (supraventricular tachycardia): Code(s): I47.1 - Supraventricular tachycardia Plan: As above (4) Carotid stenosis: Comment: 25-50% stenosis at the origin of internal carotid arteries bilaterally Code(s): I65.29 - Occlusion and stenosis of unspecified carotid artery Qualifiers: Laterality: bilateral Qualified Code(s): I65.23 - Occlusion and stenosis of bilateral carotid arteries Plan: Recent CTA of the head shows bilateral ICA stenosis, 25-50%. She is currently on aspirin 81 mg daily. She was intolerant to atorvastatin with hair loss. She is on Zetia for cholesterol control. Labs done on 09/05/2023 shows LDL 63. Well controlled at this time (5) Hypertension: Code(s): I10 - Essential (primary) hypertension Qualifiers: Hypertension type: primary hypertension Qualified Code(s): I10 - Essential (primary) hypertension Plan: Normal range. No med changes made Plan Time spent on chart review, documentation, interview and assessment Coding Level of Care Code Est Pt Level 4 (35942) Diagnoses Palpitations R00.2 Vasovagal syncope R55 Syncope type: vasovagal syncope SVT (supraventricular tachycardia) I47.1 Bilateral carotid artery stenosis I65.23 Laterality: bilateral Primary hypertension I10 Hypertension type: primary hypertension Time Spent (min) 28
== END 2024-01-24 14:23 | disposition home or self-care (01) ==
PROVIDERS: PCP Internal Medicine; Visit Provider Nurse Practitioner Family
DX: R00.2 Palpitations (principal); R55 Syncope and collapse; I47.10 Supraventricular tachycardia, unspecified; I65.23 Occlusion and stenosis of bilateral carotid arteries; I10 Essential (primary) hypertension
CPT/HCPCS: 99214

== ENCOUNTER → 2024-01-24 13:57 | Outpatient (BNVA) | payer MEDICARE, OTHER, SELFPAY | PROVIDERS: PCP Internal Medicine; Visit Provider Nurse Practitioner Family | DX: R00.2 Palpitations (principal); R55 Syncope and collapse; I47.10 Supraventricular tachycardia, unspecified; I65.23 Occlusion and stenosis of bilateral carotid arteries; I10 Essential (primary) hypertension | CPT/HCPCS: 99212 ==

== ENCOUNTER 2024-03-01 14:04 | Outpatient (REF) | payer MEDICARE, MEDICAID, SELFPAY ==
--- NOTE | ~2024-03-01 | US_ITS ---
EXAMINATION: US EXTRACRANIAL CAROTID DUPLEX, BILATERAL CLINICAL INFORMATION: Stenosis COMPARISON: Carotid duplex on 12/11/2019 TECHNIQUE: Real-time ultrasound and Doppler techniques (integrating B-mode 2-D vascular images, Doppler spectral analysis and color-flow Doppler imaging) were utilized to interrogate the extracranial carotid arteries, the vertebral arteries and proximal subclavian arteries bilaterally. The degree of stenosis is determined by criteria similar to NASCET. FINDINGS: Right Side: 1. There is mild atherosclerotic plaque seen in the bifurcation/proximal ICA region. 2. The common carotid artery PSV proximally is 107 cm/s and distally 92 cm/s. 3. The proximal internal carotid artery velocities are 114 cm/s systolic and 40 cm/s diastolic. 4. The proximal external carotid artery PSV is 117 cm/s. 5. The vertebral artery shows antegrade flow. 6. The subclavian artery waveforms are normal. Left Side: 1. There is moderate atherosclerotic plaque seen in the bifurcation/proximal ICA region. 2. The common carotid artery PSV proximally is 134 cm/s and distally 113 cm/s. 3. The proximal internal carotid artery velocities are 218 cm/s systolic and 42 cm/s diastolic. 4. The proximal external carotid artery PSV is 175 cm/s. 5. The vertebral artery shows antegrade flow. 6. The subclavian artery waveforms are normal. US/US carotid duplex BI IMPRESSION: 1. RIGHT: Minimal, non-hemodynamically significant stenosis of the proximal right internal carotid artery corresponding to a 0-49% stenosis by velocity criteria. 2. LEFT: Moderate, hemodynamically significant stenosis of the proximal left internal carotid artery corresponding to a 50-79% stenosis by velocity criteria. 3. There is no change in the category severity of disease when compared to the previous study dated 12/11/2019.
== END 2024-03-01 14:05 | disposition home or self-care (01) ==
LOC: HO.HMGCX 14:04
PROVIDERS: PCP Internal Medicine; Visit Provider Surgery Vascular Surgery
DX: I65.22 Occlusion and stenosis of left carotid artery (principal)
CPT/HCPCS: 93880

== ENCOUNTER 2024-03-07 12:32 | Outpatient (AMB) | payer MEDICARE, MEDICAID, SELFPAY ==
[2024-03-07 12:34] VITALS: BP 122/80; PULSE 92; O2SAT 98; BMI 24.2
--- NOTE | 2024-03-07 12:34 | A.OFFPC_ITS ---
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 Accompanied by: Self / Same As Patient Allergies Iodinated Contrast Media [IV Contrast Dye] Allergy (Verified 03/07/24 12:35) Unconscious alendronate sodium [From Fosamax] Adverse Reaction (Intermediate, Verified 03/07/24 12:35) Dizziness atorvastatin Adverse Reaction (Intermediate, Verified 03/07/24 12:35) hair loss Erythromycin Allergy (Unknown, Uncoded 09/06/23 12:39) Hives Medication List - Last Reconciled 03/07/24 by Lizette Samano MD amlodipine-benazepril 5-10 mg 1 cap PO DAILY hydroxyzine HCl 25 mg PO TID PRN propranolol 80 mg PO BID rosuvastatin (Crestor) 20 mg PO DAILY zolpidem 10 mg PO BEDTIME PRN Tobacco use date assessed: 03/07/24 Fall risk assessment: No Falls in past year Last assessed Fall Risk: 03/07/24 Dental Screening Dental Screen Date: 03/07/24 Did you have a dental visit in the last 12 months?: Yes Did you have a dental problem in the last 6 months where you did not have access to dental care?: No Was dental information given to patient?: Patient has dentist HPI 6 month follow up HPI Details Pt presents for f/u HTN and hyperlipid, stable on meds. Chronic palpitations and paroxysmal SVTs are controlled on propranolol, chronic anxiety and depression stable on current medications [facility] Medical History (Updated 03/07/24 @ 13:27 by Lizette Samano MD) Bilateral hand pain Shoulder pain, bilateral Annual physical exam Positive serology for Helicobacter pylori History of Papanicolaou smear of cervix Hyperlipidemia Anxiety disorder IBS (irritable bowel syndrome) Major depressive disorder Hypertension Dysuria Surgical History History of appendectomy H/O colonoscopy Family History Father No problems noted. Mother Hypertension Social History Housing: Apartment Alcohol intake: never Patient Tobacco Use Status: Former Tobacco user Quit Date: 03/26/2023 Cigarettes Per Day: 0 e-Cigarette/Vaping Use: Never Used service: No Current occupational status: unemployed Cognitive needs: No Hearing needs: No Vision needs: Yes Questionnaire Thrive Questionnaire Date Thrive assessed: 04/06/23 YOANA-7 AMB Questionnaire YOANA-7 Date YOANA - 7 assessed: 04/06/23 Source: Developed by Drs. Jf Sullivan, Elina Dunn, Luis Manuel Rodrigues and colleagues, with an educational bryan from [employer]. Review of Systems Const All systems reviewed & are unremarkable except as noted in HPI and below Eyes Reports no additional complaints ENT Reports no additional complaints Card Reports no additional complaints Resp Reports no additional complaints GI Reports no additional complaints Reports no additional complaints Physical exam (Primary Care) Vital Signs: Last Vital Signs Pulse 92 03/07/24 12:34 BP 122/80 03/07/24 12:34 Pulse Ox 98 03/07/24 12:34 Oxygen Delivery Method Room Air 03/07/24 12:34 BMI result Body Mass Index 24.2 Tobacco/Smoking Status: Tobacco use Status Tobacco use date assessed 03/07/24 03/07/24 12:37 Patient Tobacco Use Status Former Tobacco user 03/07/24 12:37 e-Cigarette/Vaping Use Never Used 03/07/24 12:37 Thrive Assessment: Date of Thrive Assessment Date Thrive assessed 04/06/23 03/07/24 12:37 Const General: no acute distress HENMT Face and sinus: Yes normal facial exam Eyes General: appearance normal, both eyes and all related structures Neck Neck: Yes supple Resp Effort & Inspection: normal respiratory effort Auscultation: clear to auscultation bilaterally Cardio Rhythm: regular rhythm Heart sounds: S1 normal heart sound present and S2 normal heart sound present GI Inspection: Yes normal to inspection Palpation (GI): Soft to palpation Percussion: Yes normal to percussion Auscultation: normal bowel sounds Assessment and Plan Assessment & Plan (1) Osteoporosis: Comment: DEXA T score-2.7 in total femoral, intolerant to Fosamax because of acid reflux, Reclast infusion 10/06 Code(s): M81.0 - Age-related osteoporosis without current pathological fracture Plan: cont vit D, regular exercise patient is due for Reclast infusion in the fall (2) Major depressive disorder: Comment: Follow-up with Psychiatry Code(s): F32.9 - Major depressive disorder, single episode, unspecified Plan: cont meds continue current medications and follow-up with a counselor (3) Hyperlipidemia: Comment: Intolerant to atorvastatin caused hair loss Code(s): E78.5 - Hyperlipidemia, unspecified Plan: cont Crestor (4) Hypertension: Code(s): I10 - Essential (primary) hypertension Qualifiers: Hypertension type: primary hypertension Qualified Code(s): I10 - Essential (primary) hypertension Plan: cont meds (5) SVT (supraventricular tachycardia): Comment: on Propranolol Code(s): I47.1 - Supraventricular tachycardia Plan: cont Propranolol (6) Hyperglycemia: Code(s): R73.9 - Hyperglycemia, unspecified Plan: ADA diet regular exercise discussed with the patient check A1c (7) Vitamin D deficiency: Code(s): E55.9 - Vitamin D deficiency, unspecified Orders: Orders TSH reflex Free T4 Today E78.5 - Hyperlipidemia, unspecified, I10 - Essential (primary) hypertension, I47.1 - Supraventricular tachycardia Hemoglobin A1c 6 Months E55.9 - Vitamin D deficiency, unspecified, E78.5 - Hyperlipidemia, unspecified, I10 - Essential (primary) hypertension, R73.9 - Hyperglycemia, unspecified Lipid Panel 6 Months E55.9 - Vitamin D deficiency, unspecified, E78.5 - Hyperlipidemia, unspecified, I10 - Essential (primary) hypertension, R73.9 - Hyperglycemia, unspecified TSH reflex Free T4 6 Months E55.9 - Vitamin D deficiency, unspecified, E78.5 - Hyperlipidemia, unspecified, I10 - Essential (primary) hypertension, R73.9 - Hyperglycemia, unspecified Vitamin D 25-OH Total 6 Months E55.9 - Vitamin D deficiency, unspecified, E78.5 - Hyperlipidemia, unspecified, I10 - Essential (primary) hypertension, R73.9 - Hyperglycemia, unspecified Comprehensive [place]. Panel Fast Today E78.5 - Hyperlipidemia, unspecified, I10 - Essential (primary) hypertension, I47.1 - Supraventricular tachycardia Complete Blood Count Auto Diff Today E78.5 - Hyperlipidemia, unspecified, I10 - Essential (primary) hypertension, I47.1 - Supraventricular tachycardia Hemoglobin A1c Today E78.5 - Hyperlipidemia, unspecified, I10 - Essential (primary) hypertension, I47.1 - Supraventricular tachycardia Lipid Panel Today E78.5 - Hyperlipidemia, unspecified, I10 - Essential (primary) hypertension, I47.1 - Supraventricular tachycardia Comprehensive [place]. Panel Fast 6 Months E55.9 - Vitamin D deficiency, u nspecified, E78.5 - Hyperlipidemia, unspecified, I10 - Essential (primary) hypertension, R73.9 - Hyperglycemia, unspecified Coding Level of Care Code Est Pt Level 4 (03965) Diagnoses Osteoporosis M81.0 Major depressive disorder F32.9 Hyperlipidemia E78.5 Primary hypertension I10 Hypertension type: primary hypertension SVT (supraventricular tachycardia) I47.1 Hyperglycemia R73.9 Vitamin D deficiency E55.9
== END 2024-03-07 13:30 | disposition home or self-care (01) ==
PROVIDERS: PCP Internal Medicine; Visit Provider Internal Medicine
DX: M81.0 Age-related osteoporosis without current pathological fracture (principal); F32.9 Major depressive disorder, single episode, unspecified; E78.5 Hyperlipidemia, unspecified; I10 Essential (primary) hypertension; I47.10 Supraventricular tachycardia, unspecified; R73.9 Hyperglycemia, unspecified; E55.9 Vitamin D deficiency, unspecified
CPT/HCPCS: 99214

== ENCOUNTER 2024-03-14 09:12 | Outpatient (REF) | payer MEDICARE, MEDICAID, SELFPAY ==
[2024-03-14 10:27] LABS: MANUAL DIFF FLAG NO
[2024-03-14 10:40] LABS: Hematocrit 40.9 % (37.0-47.0); Hemoglobin 13.2 g/dl (12.0-16.0); Mean Corpuscular HGB Conc 32.3 g/dl (31.0-35.0); Mean Corpuscular Hemoglobin 26.7 pg (27.0-33.0); Mean Corpuscular Volume 82.8 fL (80.0-98.0); Red Blood Count 4.94 X10*6/uL (4.20-5.50); Red Cell Distribution Width 13.5 % (11.0-16.0); White Blood Count 7.8 X10*3/uL (4.8-10.8)
[2024-03-14 11:41] LABS: Alanine Aminotransferase 34 U/L (0-31); Albumin Level 4.2 g/dL (3.5-5.0); Alkaline Phosphatase 57 U/L (39-117); Anion Gap 12 (12-20); Aspartate Amino Transferase 33 U/L (5-31); Bilirubin Total 0.3 mg/dL (0.0-1.0); Blood Urea Nitrogen 19 mg/dL (9-16); Calcium 9.3 mg/dL (8.4-10.2); Carbon Dioxide 27 mmol/L (22-29); Chloride 106 mmol/L (96-108); Cholesterol 171 mg/dL (<200); Estimated Glomerular Filt Rate > 60; Glucose Fasting 100 mg/dL (60-99); HDL Cholesterol 45 mg/dL (>40); LDL Cholesterol Calculated 100 mg/dL (<100); Potassium 4.1 mmol/L (3.3-5.1); Sodium 141 mmol/L (135-145); Total Protein 7.1 g/dL (6.5-8.0); Triglycerides 131 mg/dL (<150)
== END 2024-03-14 09:13 | disposition home or self-care (01) ==
LOC: HO.HMGCLDS 09:12
PROVIDERS: PCP Internal Medicine; Visit Provider Internal Medicine
DX: E78.5 Hyperlipidemia, unspecified (principal); I10 Essential (primary) hypertension; I47.10 Supraventricular tachycardia, unspecified
CPT/HCPCS: 36415; 80053; 80061; 83036; 84443; 85025

== ENCOUNTER 2024-04-12 12:13 | Outpatient (REF) | payer MEDICARE, MEDICAID, SELFPAY ==
[2024-04-12 14:18] LABS: Blood Urea Nitrogen 14 mg/dL (9-16); Estimated Glomerular Filt Rate > 60
== END 2024-04-12 12:14 | disposition home or self-care (01) ==
LOC: HO.HMGCLDS 12:13
PROVIDERS: PCP Internal Medicine; Visit Provider Internal Medicine
DX: M81.0 Age-related osteoporosis without current pathological fracture (principal)
CPT/HCPCS: 36415; 82565; 84520

== ENCOUNTER 2024-04-19 11:06 | Outpatient (AMB) | payer MEDICARE, MEDICAID, SELFPAY ==
[2024-04-19 11:08] VITALS: BP 116/66; PULSE 94; O2SAT 98; BMI 24.3
--- NOTE | 2024-04-19 11:08 | MHC.PC.OV ---
Vital Signs 04/19/24 11:08 Height 5 ft 8 in Weight 160 lb BMI 24.3 BP 116/66 Blood Pressure Location Lt brachial Position Sitting Pulse 94 Pulse Source Pulse Oximeter Pulse Oximetry (%) 98 Oxygen Delivery Method Room Air Intake Visit Reasons: R eye eyelid swelling and redness Intake Note: Pt is here today for a sick visit. Pt c/o swelling and redness in her R eyelid. Allergies Iodinated Contrast Media [IV Contrast Dye] Allergy (Verified 04/19/24 11:12) Unconscious alendronate sodium [From Fosamax] Adverse Reaction (Intermediate, Verified 04/19/24 11:12) Dizziness atorvastatin Adverse Reaction (Intermediate, Verified 04/19/24 11:12) hair loss Erythromycin Allergy (Unknown, Uncoded 04/19/24 11:12) Hives Medication List - Last Reconciled 04/19/24 by Lizette Samano MD amlodipine-benazepril 5-10 mg 1 cap PO DAILY hydroxyzine HCl 25 mg PO TID PRN mirtazapine 15 mg PO BEDTIME paroxetine HCl 10 mg PO DAILY propranolol 80 mg PO BID rosuvastatin (Crestor) 20 mg PO DAILY zoledronic womm-beujhuqp-glwth 5 mg/100 mL (Reclast) 1 ea IV ONCE zolpidem 10 mg PO BEDTIME PRN Tobacco use date assessed: 04/19/24 Dental Screening Dental Screen Date: 03/07/24 HPI R eye eyelid swelling and redness HPI Details Pr c/o R eye swelling and discomfort for 1 day after getting Reclast infusion, getting better today. HTN and hyperlipid, stable on meds. [facility] Medical History (Updated 03/07/24 @ 13:27 by Lizette Samano MD) Bilateral hand pain Shoulder pain, bilateral Annual physical exam Positive serology for Helicobacter pylori History of Papanicolaou smear of cervix Hyperlipidemia Anxiety disorder IBS (irritable bowel syndrome) Major depressive disorder Hypertension Dysuria Surgical History History of appendectomy H/O colonoscopy Family History Father No problems noted. Mother Hypertension Social History Housing: Apartment Alcohol intake: never Patient Tobacco Use Status: Former Tobacco user Cigarettes Per Day: 0 e-Cigarette/Vaping Use: Never Used service: No Current occupational status: unemployed Cognitive needs: No Hearing needs: No Vision needs: Yes Questionnaire PHQ-9 Over the last 2 weeks, how often have you been bothered by any of the following problems? 1. Little interest or pleasure in doing things: several days 2. Feeling down, depressed, or hopeless: several days 3. Trouble falling or staying asleep, or sleeping too much: not at all 4. Feeling tired or having little energy: not at all 5. Poor appetite or overeating: not at all 6. Feeling bad about yourself - or that you are a failure or have let yourself or your family down: not at all 7. Trouble concentrating on things, such as reading the newspaper or watching television: not at all 8. Moving or speaking so slowly that other people could have noticed. Or the opposite - being so fidgety or restless that you have been moving around a lot more than usual: not at all 9. Thoughts that you would be better off or of hurting yourself in some way: not at all Total score: 2 Depression Screening Interpretation: Negative Depression Screening Done: Yes Source: Developed by Drs. Jf Sullivan, Elina Dunn, Luis Manuel Rodrigues and colleagues, with an educational bryan from [employer]. Thrive Questionnaire Date Thrive assessed: 04/19/24 I am a: Patient What is your living situation today?: I have a steady place to live Within the past 12 months, did the food you bought not last and you didn't have the money to get more?: Never true Within the past 12 months, did you worry whether your food would run out before you got money to buy more?: Never true Do you have trouble paying for medicines?: No Do you have trouble getting transportation to medical appointments?: No Do you have trouble paying your heating and electricity bill?: No Do you have trouble taking care of your child, family member or friend?: No Do you have trouble with day-to-day activities such as bathing, preparing meals, shopping, managing finances, etc.?: No Are you currently unemployed and looking for a job?: No Are you interested in more education?: No Please select the resources that you would like help with: None THRIVE Score: 0 YOANA-7 AMB Questionnaire YOANA-7 Date YOANA - 7 assessed: 04/19/24 Feeling nervous, anxious, or on edge: 0 = Not at all Not being able to stop or control worryin = Not at all Worrying too much about different things: 0 = Not at all Trouble relaxin = Several days Being so restless that it is hard to sit still: 0 = Not at all Becoming easily annoyed or irritable: 0 = Not at all Feeling afraid as if something awful might happen: 0 = Not at all Total YOANA-7 score (0-4 normal; 5-9 mild; 10-14 moderate; 15-21 severe): 1 Source: Developed by Drs. Jf Sullivan, Elina Dunn, Luis Manuel Rodrigues and colleagues, with an educational bryan from [employer]. Review of Systems Const All systems reviewed & are unremarkable except as noted in HPI and below Eyes Reports no additional complaints ENT Reports no additional complaints Card Reports no additional complaints Resp Reports no additional complaints GI Reports no additional complaints Physical exam (Primary Care) Vital Signs: Last Vital Signs Pulse 94 04/19/24 11:08 BP 116/66 04/19/24 11:08 Pulse Ox 98 04/19/24 11:08 Oxygen Delivery Method Room Air 04/19/24 11:08 BMI result Body Mass Index 24.3 Tobacco/Smoking Status: Tobacco use Status Tobacco use date assessed 04/19/24 04/19/24 11:14 Patient Tobacco Use Status Former Tobacco user 04/19/24 11:14 e-Cigarette/Vaping Use Never Used 04/19/24 11:14 PHQ-9: PHQ-9 Score PHQ-9: Total score 2 04/19/24 11:14 Depression Screening Interpretation: Negative Thrive Assessment: Date of Thrive Assessment Date Thrive assessed 04/19/24 04/19/24 11:14 Const General: no acute distress HENMT Head: Yes normal to inspection Face and sinus: Yes normal facial exam Neck Neck: Yes supple Resp Effort & Inspection: normal respiratory effort Auscultation: clear to auscultation bilaterally Cardio Rhythm: regular rhythm Heart sounds: S1 normal heart sound present and S2 normal heart sound present GI Inspection: Yes normal to inspection Palpation (GI): Soft to palpation Assessment and Plan Assessment & Plan (1) Hyperlipidemia: Comment: Intolerant to atorvastatin caused hair loss Code(s): E78.5 - Hyperlipidemia, unspecified Plan: cont Crestor (2) Hypertension: Code(s): I10 - Essential (primary) hypertension Qualifiers: Hypertension type: primary hypertension Qualified Code(s): I10 - Essential (primary) hypertension Plan: cont meds Coding Level of Care Code Est Pt Level 3 (62918) Diagnoses Hyperlipidemia E78.5 Primary hypertension I10 Hypertension type: primary hypertension
== END 2024-04-19 12:21 | disposition home or self-care (01) ==
PROVIDERS: PCP Internal Medicine; Visit Provider Internal Medicine
DX: E78.5 Hyperlipidemia, unspecified (principal); I10 Essential (primary) hypertension
CPT/HCPCS: 99213

== ENCOUNTER 2024-10-17 10:21 | Outpatient (REF) | payer MEDICARE, MEDICAID, SELFPAY ==
[2024-10-17 13:34] LABS: Estimated Average Glucose 105 mg/dL; Hemoglobin A1C 121.6869 umol/L; Hemoglobin A1c % 5.3 % (<6.0); Total Hemoglobin (HGBA1C) 3542.3587 umol/L
[2024-10-17 13:50] LABS: Alanine Aminotransferase 64 U/L (0-31); Albumin Level 4.4 g/dL (3.5-5.0); Alkaline Phosphatase 54 U/L (39-117); Anion Gap 10 (12-20); Aspartate Amino Transferase 42 U/L (5-31); Bilirubin Total 0.4 mg/dL (0.0-1.0); Blood Urea Nitrogen 12 mg/dL (9-16); Calcium 9.6 mg/dL (8.4-10.2); Carbon Dioxide 29 mmol/L (22-29); Chloride 107 mmol/L (96-108); Cholesterol 181 mg/dL (<200); Estimated Glomerular Filt Rate > 60; Glucose Fasting 106 mg/dL (60-99); HDL Cholesterol 46 mg/dL (>40); LDL Cholesterol Calculated 104 mg/dL (<100); Potassium 4.2 mmol/L (3.3-5.1); Sodium 142 mmol/L (135-145); Total Protein 7.4 g/dL (6.5-8.0); Triglycerides 156 mg/dL (<150)
[2024-10-17 13:58] LABS: TSH reflex Free T4 0.95 uIU/mL (0.32-4.0); Vitamin D 25-OH Total 51.8 ng/mL (>30)
== END 2024-10-17 10:22 | disposition home or self-care (01) ==
LOC: HO.HMGCLDS 10:21
PROVIDERS: PCP Internal Medicine; Visit Provider Internal Medicine
DX: R73.9 Hyperglycemia, unspecified (principal); E55.9 Vitamin D deficiency, unspecified; R78.5 Finding of other psychotropic drug in blood; I10 Essential (primary) hypertension
CPT/HCPCS: 36415; 80053; 80061; 82306; 83036; 84443

== ENCOUNTER 2024-10-19 10:10 | Outpatient (REF) | payer MEDICARE, MEDICAID, SELFPAY ==
[2024-10-19 13:36] LABS: Iron 85 mcg/dL (30-160); Percent Iron Saturation 30 % (15-50); Total Iron Binding Capacity 285 mcg/dL (228-428); Unsaturated Iron Binding 200 ug/dL
== END 2024-10-19 10:11 | disposition home or self-care (01) ==
LOC: HO.HMGCLDS 10:10
PROVIDERS: PCP Internal Medicine; Visit Provider Internal Medicine
DX: Z00.00 Encounter for general adult medical examination without abnormal findings (principal); M81.0 Age-related osteoporosis without current pathological fracture; I10 Essential (primary) hypertension; E78.5 Hyperlipidemia, unspecified; R73.9 Hyperglycemia, unspecified; E55.9 Vitamin D deficiency, unspecified; F32.9 Major depressive disorder, single episode, unspecified; Z79.899 Other long term (current) drug therapy
CPT/HCPCS: 36415; 83540; 96127

== ENCOUNTER 2024-10-19 10:10 | Outpatient (AMB) | payer MEDICARE, MEDICAID, SELFPAY ==
--- NOTE | 2024-10-19 10:10 | A.OFFVIS_ITS ---
Intake Vital Signs 10/19/24 10:14 Height 5 ft 8 in Weight 154 lb BMI 23.4 BP 126/74 Blood Pressure Location Lt brachial Position Sitting Pulse 91 Pulse Source Pulse Oximeter Pulse Oximetry (%) 95 Oxygen Delivery Method Room Air Intake Visit Reasons: AWV G0438 Allergies Iodinated Contrast Media [IV Contrast Dye] Allergy (Verified 10/19/24 10:11) Unconscious alendronate sodium [From Fosamax] Adverse Reaction (Intermediate, Verified 10/19/24 10:11) Dizziness atorvastatin Adverse Reaction (Intermediate, Verified 10/19/24 10:11) hair loss Erythromycin Allergy (Unknown, Uncoded 10/19/24 10:11) Hives Medication List - Last Reconciled 10/19/24 by Lizette Samano MD amlodipine-benazepril 5-10 mg 1 cap PO DAILY hydroxyzine HCl 25 mg PO TID PRN mirtazapine 15 mg PO BEDTIME paroxetine HCl 10 mg PO DAILY propranolol 80 mg PO BID rosuvastatin (Crestor) 20 mg PO DAILY zoledronic rvie-ehbfzmtt-svywf 5 mg/100 mL (Reclast) 1 ea IV ONCE zolpidem 10 mg PO BEDTIME PRN HPI AWV G0438 HPI Details Initiated the conversation about Advanced Directives. Advanced Directives help? patients prepare for current and future decisions about their medical treatment? and place of care. Discussed with patient that it is a process where a patients? current condition and prognosis are reviewed, their wishes for information? regarding their illness are elicited, and likely medical dilemmas are presented? and options discussed. The form can be amended as needed, reviewed yearly and? make changes as needed IPPE/AWV ? year old presents? for her ? Annual? Wellness Visit, initial visit.? Medical / Social History Reviewed? Past Medical History ?Yes? . ? [place]? of Care / Care Team list updated ?Yes . ? Surgical/Hospitalization? History ?Yes . ? Current Medications? (including OTC and supplements) ?Yes . ? Family History ?Yes? . ? Tobacco? Control form ?Yes . ? AUDIT-C (Alcohol use) form? ?Yes . ? Illicit drug use in Social? History ?Yes . ? Current diagnosis of? depression? ?No ? Appropriate PHQ2/PHQ9? completed ?Yes . ? Data entered by ?Medical? Proofing Machine Operator and reviewed by provider ? Fall Risk ? Fall? History? Have you had any falls with? injury in the past year? ?No . ? Have you had two or more? falls in the past year? ?No . ? Fall Risk Assessment: ?No? falls in the past year . ? HRA filled out by? the patient, reviewed by Provider and scanned. ? IPPE/AWV ? Balance? Romberg? ?Yes . ? Tandem? walk ?Yes . ? Walk and? Turn ?Yes . ? Rise from? sit to stand ?Yes . ?Vision? Corrective? lens ?Yes ? Vision? screen ? Up-to-date, has an appointment [] for vision? screening and glaucoma screening ?Hearing? Whisper? test ?pass .? Initiated the conversation about Advanced Directives. Advanced Directives help? patients prepare for current and future decisions about their medical treatment? and place of care. Discussed with patient that it is a process where a patients? current condition and prognosis are reviewed, their wishes for information? regarding their illness are elicited, and likely medical dilemmas are presented? and options discussed. The form can be amended as needed, reviewed yearly and? make changes as needed Written? Plan?Completed. See Patient? Documents. [facility] Medical History (Updated 10/19/24 @ 10:55 by Lizette Samano MD) Bilateral hand pain Shoulder pain, bilateral Annual physical exam History of Papanicolaou smear of cervix Hyperlipidemia Anxiety disorder IBS (irritable bowel syndrome) Major depressive disorder Hypertension Dysuria Surgical History (Updated 10/19/24 @ 10:50 by Lizette Samano MD) History of appendectomy H/O colonoscopy Family History Father No problems noted. Mother Hypertension Social History Housing: Apartment Alcohol intake: never Patient Tobacco Use Status: Former Tobacco user Cigarettes Per Day: 0 e-Cigarette/Vaping Use: Never Used service: No Current occupational status: unemployed Cognitive needs: No Hearing needs: No Vision needs: Yes Questionnaire Medicare Wellness Checkup [age] 65-67 What gender do you identify with?: female During the past 4 weeks, how much have you been bothered by emotional problems such as feeling anxious, depressed, irritable, sad or downhearted, and blue?: moderately During the past 4 weeks, has your physical & emotional health limited your social activities with family, friends, neighbors, or groups?: moderately During the past 4 weeks, how much bodily pain have you generally had?: mild pain During the past 4 weeks, was someone available to help you if you needed & wanted help?: yes, some During the past 4 weeks, what was the hardest physical activity you could do for at least 2 minutes?: light Can you get to places out of walking distance without help? (For eg., can you travel alone on buses, taxis or drive your car?): Yes Can you go shopping for groceries or clothes without someone's help?: Yes Can you prepare your own meals?: Yes Can you do your housework without help?: Yes Because of any health problems, do you need the help of another person with your personal care needs such as eating, bathing, dressing or getting around the house?: No Can you handle your own money without help?: Yes During the past 4 weeks, how would you rate your health in general?: fair During the past 4 weeks how have things been going for you?: good & bad parts about equal Are you having difficulties driving your car?: no Do you always fasten your seat belt when you are in a car?: yes, usually During past 4 weeks, have you been bothered by the following: never: Falling or dizzy when standing up, Sexual problems?, Teeth or denture problems?, Problems using the telephone? and Tiredness or fatigue? and seldom: Trouble eating well? Have you fallen 2 or more times in the past year?: No Are you afraid of falling?: Yes Are you a smoker?: no During the past 4 weeks, how many drinks of wine, beer, or other alcoholic beverages did you have?: no alcohol at all Do you exercise for about 20 minutes 3 or more times a week?: yes, most of the time Have you been given information to help with the following?: no: Hazards in your house that might hurt you? and no: Keeping track of your medications? How often do you have trouble taking medicines the way you have been told to t ammy them?: I always take medicine as prescribed How confident are you that you can control & manage most of your health problems?: somewhat confident What is your race?: White Mini Mental State Exam (MMSE) Orientation What is the (year) (season) (date) (day) (month)?: year, season, date, day and month Where are we (state) (county) (town or city) (hospital) (floor)?: state, county, town or city, hospital/clinic and floor Registration Name of 3 unrelated objects clearly and slowly, then ask patient to repeat all 3 of them. (1st repeat determines score. Make sure they can repeat all three): object 1, object 2 and object 3 Attention & Calculation (CHOOSE ONE) Spell WORLD backwards (DLROW): 5 letters Recall Ask patient to repeat the 3 items from question #3.: object 1, object 2 and object 3 Language Show patient a wristwatch & ask what it is. Repeat for pencil.: watch and pencil Ask the patient to repeat the phrase 'No ifs, ands, or buts' after you.: correct Ask the patient to 'take a piece of paper with their right hand' 'fold paper in half' 'place paper on floor': take paper in right hand, fold paper in half and place paper on floor Print the sentence 'CLOSE YOUR EYES' on a piece. If patient actually closes eyes then score.: followed written direction Give patient a blank piece of paper & ask to write a sentence. Score if it contains a noun & verb.: sentence contains subject and verb Score Score: 29 PHQ-9 Over the last 2 weeks, how often have you been bothered by any of the following problems? 1. Little interest or pleasure in doing things: several days 2. Feeling down, depressed, or hopeless: more than half the days 3. Trouble falling or staying asleep, or sleeping too much: not at all 4. Feeling tired or having little energy: not at all 5. Poor appetite or overeating: not at all 6. Feeling bad about yourself - or that you are a failure or have let yourself or your family down: not at all 7. Trouble concentrating on things, such as reading the newspaper or watching television: several days 8. Moving or speaking so slowly that other people could have noticed. Or the opposite - being so fidgety or restless that you have been moving around a lot more than usual: not at all 9. Thoughts that you would be better off or of hurting yourself in some way: not at all Total score: 4 Depression Screening Interpretation: Negative Depression Screening Done: Yes 30120 - PHQ-9 Billing: Yes Source: Developed by Drs. Jf Sullivan, Elina Dunn, Luis Manuel Rodrigues and colleagues, with an educational bryan from [employer]. Review of Systems Const All systems reviewed & are unremarkable except as noted in HPI and below Eyes Reports no additional complaints ENT Reports no additional complaints Card Reports no additional complaints Resp Reports no additional complaints GI Reports no additional complaints Reports no additional complaints Musc Reports no additional complaints Physical Exam Vital Signs: Last Vital Signs Pulse 91 10/19/24 10:14 BP 126/74 10/19/24 10:14 Pulse Ox 95 10/19/24 10:14 Oxygen Delivery Method Room Air 10/19/24 10:14 BMI result Body Mass Index 23.4 Const General: no acute distress HEENT Head: Yes normal to inspection Ears: TM's normal bilaterally Eyes General: appearance normal, both eyes and all related structures Neck Neck: Yes no lymphadenopathy and Yes supple Resp Effort & Inspection: normal respiratory effort Auscultation: clear to auscultation bilaterally Cardio Rhythm: regular rhythm Heart sounds: S1 normal heart sound present and S2 normal heart sound present GI Inspection: Yes normal to inspection Palpation (GI): Soft to palpation Percussion: Yes normal to percussion Auscultation: normal bowel sounds Extrem General: Yes no clubbing, cyanosis or edema Assessment & Plan Assessment & Plan (1) Osteoporosis: Comment: DEXA T score-2.7 femoral 04/2023, intolerant to Fosamax because of GERD, Reclast infusion 04/06, repeat DEXA 2024 Code(s): M81.0 - Age-related osteoporosis without current pathological fracture Plan: Continue vitamin-D 3 and regular exercise repeat DEXA next year (2) Hypertension: Code(s): I10 - Essential (primary) hypertension Qualifiers: Hypertension type: primary hypertension Qualified Code(s): I10 - Essential (primary) hypertension Plan: Continue current medications (3) Hyperlipidemia: Comment: Intolerant to atorvastatin caused hair loss Code(s): E78.5 - Hyperlipidemia, unspecified Plan: Continue Crestor (4) Hyperglycemia: Code(s): R73.9 - Hyperglycemia, unspecified Plan: A1c is 5.3, continue ADA diet regular exercise follow-up in 6 months with a fasting labs before (5) Annual physical exam: Code(s): Z00.00 - Encounter for general adult medical examination without abnormal findings Plan: Well-balanced diet regular physical activity discussed with the patient she is up-to-date with the Pap smear and mammogram. Patient declined colonoscopy had negative Cologuard in 2022 (6) Vitamin D deficiency: Code(s): E55.9 - Vitamin D deficiency, unspecified Plan: Continue vitamin-D supplement (7) Major depressive disorder: Comment: Follow-up with Psychiatry Code(s): F32.9 - Major depressive disorder, single episode, unspecified Plan: Continue current medications and follow-up with psychiatry Orders: Orders Comprehensive Urania. Panel Fast 6 Months E78.5 - Hyperlipidemia, unspecified, I10 - Essential (primary) hypertension, M81.0 - Age-related osteoporosis without current pathological fracture, R73.9 - Hyperglycemia, unspecified Lipid Panel 6 Months E78.5 - Hyperlipidemia, unspecified, I10 - Essential (primary) hypertension, M81.0 - Age-related osteoporosis without current pathological fracture, R73.9 - Hyperglycemia, unspecified TSH reflex Free T4 6 Months E78.5 - Hyperlipidemia, unspecified, I10 - Essential (primary) hypertension, M81.0 - Age-related osteoporosis without current pathological fracture, R73.9 - Hyperglycemia, unspecified Vitamin D 25-OH Total 6 Months E55.9 - Vitamin D deficiency, unspecified, E78.5 - Hyperlipidemia, unspecified, I10 - Essential (primary) hypertension, M81.0 - Age-related osteoporosis without current pathological fracture, R73.9 - Hyperglycemia, unspecified XR DEXA axial skeleton Today M81.0 - Age-related osteoporosis without current pathological fracture Complete Blood Count Auto Diff 6 Months E78.5 - Hyperlipidemia, unspecified, I10 - Essential (primary) hypertension, M81.0 - Age-related osteoporosis without current pathological fracture, R73.9 - Hyperglycemia, unspecified IRON PROFILE Today Z00.00 - Encounter for general adult medical examination without abnormal findings Quality Reporting (2019) Depression/Bipolar (159/160/161/177) PHQ-9: Total score: 4 Coding Level of Care Code Medicare Subsequent (G0439) Diagnoses Osteoporosis M81.0 Primary hypertension I10 Hypertension type: primary hypertension Hyperlipidemia E78.5 Hyperglycemia R73.9 Annual physical exam Z00.00 Vitamin D deficiency E55.9 Major depressive disorder F32.9 Additional Codes PHQ-9 - 42029 - PHQ-9 Billing: Yes ([id number])
[2024-10-19 10:14] VITALS: BP 126/74; PULSE 91; O2SAT 95; BMI 23.4
== END 2024-10-19 10:46 | disposition home or self-care (01) ==
LOC: HO.HMCC 10:10
PROVIDERS: PCP Internal Medicine; Visit Provider Internal Medicine
DX: Z00.00 Encounter for general adult medical examination without abnormal findings (principal); M81.0 Age-related osteoporosis without current pathological fracture; I10 Essential (primary) hypertension; E78.5 Hyperlipidemia, unspecified; R73.9 Hyperglycemia, unspecified; E55.9 Vitamin D deficiency, unspecified; F32.9 Major depressive disorder, single episode, unspecified

== ENCOUNTER 2024-10-30 10:03 | Outpatient (REF) | payer MEDICARE, MEDICAID, SELFPAY ==
--- NOTE | ~2024-10-30 | US_ITS ---
EXAMINATION: US ABDOMEN LIMITED CLINICAL INFORMATION: Other specified abnormal findings of blood chemistry. COMPARISON: None available. TECHNIQUE: Real-time imaging of the right upper quadrant abdominal viscera. FINDINGS: PANCREAS: Visualized portions are unremarkable. LIVER: The liver is normal in size. The liver contour is normal. There is diffuse increased liver parenchymal echogenicity, consistent with hepatic steatosis. No focal hepatic lesion. There is no intrahepatic biliary duct dilatation seen. GALLBLADDER: The gallbladder is physiologically distended without evidence of stones, sludge, polyps, wall thickening or pericholecystic fluid. COMMON BILE DUCT: Normal in caliber measuring 0.65 cm in diameter. RIGHT KIDNEY: No hydronephrosis or renal calculi. The kidney measures 10.2 cm in maximum dimension. Small simple cyst measure up to 7 mm. These are commonly benign, no follow-up imaging is indicated. FREE FLUID: None. US/US abdomen limited IMPRESSION: 1. Diffusely echogenic liver suggesting hepatic steatosis. 2. No ultrasound evidence of focal liver lesion. Electronically signed by: Clinton Vegas MD 11/06/2024 06:39 AM EST
== END 2024-10-30 10:04 | disposition home or self-care (01) ==
LOC: HO.HMGCX 10:03
PROVIDERS: PCP Internal Medicine; Visit Provider Internal Medicine
DX: R79.89 Other specified abnormal findings of blood chemistry (principal)
CPT/HCPCS: 76705

== ENCOUNTER 2024-11-27 10:07 | Outpatient (REF) | payer MEDICARE, MEDICAID, SELFPAY ==
[2024-11-27 13:54] LABS: Alanine Aminotransferase 40 U/L (0-31); Albumin Level 4.4 g/dL (3.5-5.0); Alkaline Phosphatase 55 U/L (39-117); Aspartate Amino Transferase 31 U/L (5-31); Bilirubin Direct 0.1 mg/dL (0.0-0.5); Bilirubin Total 0.3 mg/dL (0.0-1.0); Total Protein 7.3 g/dL (6.5-8.0)
[2024-11-27 14:15] LABS: HBS Num1 0.03 mIU/mL (0-7.99); HBc Num1 0.04 S/CO (0.00-0.79); Hepatitis B Core Antibody Nonreactive (Nonreactive); Hepatitis B Surface Antigen Negative (Negative); ~HepC Num1 0.06 S/CO (0.00-0.79); ~Hepatitis B Surface Antibody NONREACTIVE (Nonreactive); ~Hepatitis C Antibody Nonreactive (Nonreactive)
[2024-11-29 14:53] LABS: Anti Nuclear Antibody Screen NEGATIVE (NEGATIVE)
[2024-12-01 21:53] LABS: Liver Kidney Microsomal Ab <=20.0 U (<=20.0)
== END 2024-11-27 10:08 | disposition home or self-care (01) ==
LOC: HO.HMGCLDS 10:07
PROVIDERS: PCP Internal Medicine; Visit Provider Internal Medicine
DX: R79.89 Other specified abnormal findings of blood chemistry (principal); Z11.59 Encounter for screening for other viral diseases; Z72.89 Other problems related to lifestyle
CPT/HCPCS: 36415; 80076; 86038; 86376; 86704; 86706; 86803; 87340

== ENCOUNTER 2025-01-22 12:47 | Outpatient (AMB) | payer MEDICARE, MEDICAID, SELFPAY ==
[2025-01-22 13:05] VITALS: BP 142/80; PULSE 112; BMI 24.2
--- NOTE | 2025-01-22 13:05 | MHC.OFFVIS ---
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 Mechanic Required: Yes Furniture Upholstery Mechanic Language: Omani Furniture Upholstery Mechanic Name: voice best [id number] Allergies Iodinated Contrast Media [IV Contrast Dye] Allergy (Verified 01/22/25 13:16) Unconscious alendronate sodium [From Fosamax] Adverse Reaction (Intermediate, Verified 01/22/25 13:16) Dizziness atorvastatin Adverse Reaction (Intermediate, Verified 01/22/25 13:16) hair loss Erythromycin Allergy (Unknown, Uncoded 01/22/25 13:16) Hives Medication List - Last Reconciled 01/22/25 by Nae Pa NP-C amlodipine-benazepril 5-10 mg 1 cap PO DAILY hydroxyzine HCl 25 mg PO TID PRN mirtazapine 15 mg PO BEDTIME paroxetine HCl 10 mg PO DAILY propranolol 80 mg PO BID rosuvastatin (Crestor) 20 mg PO DAILY zoledronic ffhk-lrpfkali-zlndk 5 mg/100 mL (Reclast) 1 ea IV ONCE zolpidem 10 mg PO BEDTIME PRN HPI HPI 1 yr f/up: Details: Deepika is a 64-year-old female past medical history of hypertension, hyperlipidemia, Syncope, likely vasovagal, heart palpitations, brief SVT who presents for followup. Today she reports that she has been feeling well since her last visit 01/24/24. She reports feeling anxious and depressed. She lives in [place] [facility] [place] and has no family nearby. She avoids people and lives on very limited income. She does have a counselor that she speaks to weakly. She walks routinely and says she feels good with it. She has had no issues with lightheadedness, presyncope, syncope, falls. No recent heart palpitations, chest discomfort, shortness of breath, no PND, orthopnea or edema. She continues to drink 1 caffeinated beverage a day. She is taking meds as directed. 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 [facility] Medical History Bilateral hand pain Shoulder pain, bilateral Annual physical exam History of Papanicolaou smear of cervix Hyperlipidemia Anxiety disorder IBS (irritable bowel syndrome) Major depressive disorder Hypertension Dysuria Surgical History History of appendectomy H/O colonoscopy Family History Father No problems noted. Mother Hypertension Social History Housing: Apartment Alcohol intake: never Patient Tobacco Use Status: Former Tobacco user Cigarettes Per Day: 0 e-Cigarette/Vaping Use: Never Used service: No Current occupational status: unemployed Cognitive needs: No Hearing needs: No Vision needs: Yes Review of Systems Const Details: anxiety, depressed All systems reviewed & are unremarkable except as noted in HPI and below ENT Denies dizziness Card Denies chest pain, Denies chest pain at rest, Denies chest pain with activity, Denies rapid heart rate, Denies pedal edema, Denies edema, Denies leg edema, Denies lightheadedness, Denies palpitations, Denies dyspnea, Denies dyspnea on exertion and Denies orthopnea Resp Denies cough, Denies dyspnea and Denies dyspnea on exertion GI Denies hematochezia and Denies change in stool character Musc Denies abnormal gait, Denies limited range of motion, Denies muscle cramps, Denies muscle weakness, Denies numbness, Denies radiating pain into limb, Denies stiffness and Denies tingling Neuro Denies abnormal gait, Denies dizziness, Denies numbness and Denies tingling Endo Denies palpitations Physical Exam Vital Signs: BMI result Body Mass Index 24.2 Const General: healthy appearing, comfortable, no acute distress and anxious Orientation/consciousness: patient oriented x3 Neck Neck: Yes normal visual inspection Resp Effort & Inspection: normal respiratory effort Auscultation: clear to auscultation bilaterally, no crackles, no rales, no rhonchi and no wheezes Cardio Jugular venous distension: no JVD Rate: regular rate Rhythm: regular rhythm Heart sounds: S1 normal heart sound present, S2 normal heart sound present, no murmurs and no rubs Neuro General: patient oriented x3 Extrem General: Yes normal to inspection and No no pedal edema Psych Appearance: grossly normal Mental Status: mental status grossly normal Speech and movement: Normal speech and movement present Office Procedures EKG Details: Today, read by me, Sinus tachycardia, rate 112, QTc 455ms [id number], Complete Assessment & Plan Assessment & Plan (1) Palpitations: Code(s): R00.2 - Palpitations Category: Medical Plan: Prior reports of brief rapid palpitations. Holter monitor confirmed frequent short runs of SVT. She had been on propanolol long-term, on one follow up visit her dose was increased to 80 mg b.i.d.. Since then her palpitations have resolved. Last holter done on 12/21/2023 for 3 days showed sinus rhythm with average heart rate 69, rare PACs. EKG today shows Sinus tachycardia, rate 112, in the setting of visable anxiety. Contiinue current propanolol dose. She can continue to drink one caffinated beverage daily. Stress reduction activities, increasing physical activity reviewed. Continue to follow with counselor. SVT seems well controlled at this time. Cardiology follow-up in 6 year, sooner if needed. Emergency care if ever needed for sustained rapid heart palpitations. (2) Syncope: Code(s): R55 - Syncope and collapse Category: Medical Qualifiers: Syncope type: vasovagal syncope Qualified Code(s): R55 - Syncope and collapse Plan: 2 presyncopal episodes last year which are most likely vasovagal events. One episode occurred while having a mammogram. The 2nd episode occurred during a significant headache at home. In both cases she was in a standing position. No full syncope. Initial concern for possible CVA/TIA, at ER visit however CT and CTA of the head showed no acute findings. She does have 25-50% carotid stenosis, both ICAs. Echocardiogram was done 07/04/2023 showing EF greater than 70%, no valve abnormalities. Initial Holter monitor was done 07/04/2023 for 14 days showing sinus rhythm with average heart rate 72, frequent episodes of SVT, longest 21 beats with rate up to 228 beats per minute. She has not had any recurrent presyncope or syncope. If she does, then tilt table test will be ordered. (3) SVT (supraventricular tachycardia): Comment: on Propranolol Code(s): I47.1 - Supraventricular tachycardia Category: Medical Plan: As above (4) Carotid stenosis: Comment: 25-50% stenosis at the origin of internal carotid arteries bilaterally Code(s): I65.29 - Occlusion and stenosis of unspecified carotid artery Category: Medical Qualifiers: Laterality: bilateral Qualified Code(s): I65.23 - Occlusion and stenosis of bilateral carotid arteries Plan: CTA of the head 05/23/23 shows bilateral ICA stenosis, 25-50%. She is currently on aspirin 81 mg daily. She was intolerant to atorvastatin with hair loss. She is Rosuvastatin for cholesterol control. Labs done on 09/05/2023 shows LDL 63. Labs 10/17/24 shows LDL 104. For now continue current rosuvastatin and plan recheck of lipids next visit. (5) Hypertension: Code(s): I10 - Essential (primary) hypertension Category: Medical Qualifiers: Hypertension type: primary hypertension Qualified Code(s): I10 - Essential (primary) hypertension Plan: Mild elevation today. She does report having anxiety and stress. Stress reduction activities reviewed. No med changes. Plan Time spent on chart review, documentation, interview and assessment Coding Level of Care Code Est Pt Level 4 (96324) Complex EM visit Add On G2211 Diagnoses Palpitations R00.2 Vasovagal syncope R55 Syncope type: vasovagal syncope SVT (supraventricular tachycardia) I47.1 Bilateral carotid artery stenosis I65.23 Laterality: bilateral Primary hypertension I10 Hypertension type: primary hypertension CPT Codes EKG - CPT: 08512-[id number], Complete ([id number]) Time Spent (min) 30
== END 2025-01-22 13:46 | disposition home or self-care (01) ==
LOC: HO.HCS 12:48
PROVIDERS: PCP Internal Medicine; Visit Provider Nurse Practitioner Family
DX: R00.2 Palpitations (principal); R55 Syncope and collapse; I47.10 Supraventricular tachycardia, unspecified; I65.23 Occlusion and stenosis of bilateral carotid arteries; I10 Essential (primary) hypertension
CPT/HCPCS: 93010; 99214; G2211

== ENCOUNTER → 2025-01-22 12:47 | Outpatient (BNVA) | payer MEDICARE, MEDICAID, SELFPAY | PROVIDERS: PCP Internal Medicine; Visit Provider Nurse Practitioner Family | DX: R00.2 Palpitations (principal); I47.10 Supraventricular tachycardia, unspecified; R55 Syncope and collapse; I10 Essential (primary) hypertension; I65.23 Occlusion and stenosis of bilateral carotid arteries | CPT/HCPCS: 93005; 99212 ==

== ENCOUNTER 2025-05-09 08:40 | Outpatient (REF) | payer MEDICARE, MEDICAID, SELFPAY ==
--- NOTE | ~2025-05-09 | MM_ITS ---
EXAMINATION: MM SCREENING DIGITAL BREAST TOMOSYNTHESIS, BILATERAL CLINICAL INFORMATION: Screening. Asymptomatic. COMPARISON: Mammography: Comparison is made with available priors TECHNIQUE: Digital breast mammography with tomosynthesis is performed in both the craniocaudal and mediolateral oblique views along with computer-aided detection (CAD). FINDINGS: There are scattered areas of fibroglandular density (ACR BI-RADS breast composition Category b). There are no significant masses, abnormal calcifications, or other abnormalities. MM/MM tomosynthesis screening BI IMPRESSION: No mammographic evidence of malignancy. ASSESSMENT: BI-RADS BI-RADS 1 - Negative RECOMMENDATION: Routine annual mammography screening. 1 year F/U This examination should not preclude the clinical evaluation of a suspicious palpable abnormality. This patient's information was entered into a reminder system with a target due date for their next mammogram. Electronically signed by: Marlys Johansen DO 05/25/2025 03:54 PM EDT
--- NOTE | ~2025-05-09 | MM_ITS ---
EXAMINATION: DXA BONE DENSITY AXIAL HISTORY: M81.0 - Age-related osteoporosis without current pathological fracture TECHNIQUE: [employer] Dual energy absorptiometry (DEXA) of the lumbar spine, total left hip, and femoral neck was performed. COMPARISON: Comparison is made with the prior examination dated 04/20/2023. FINDINGS: The bone mineral density of the lumbar spine is 1.066, corresponding to a T-score of -0.9, and a Z-score of 0.5. This is indicative of normal bone mineral density. This represents a BMD change of 5.2% compared to the prior exam. This is statistically significant. The bone mineral density of the left total hip is 0.684, corresponding to a T-score of -2.6, and a Z-score of -1.4. This is indicative of osteoporosis. This represents a BMD change of 2.1% compared to the prior exam. This is not statistically significant. The bone mineral density of the left femoral neck is 0.731, corresponding to a T-score of -2.2, and a Z-score of -0.8. This is indicative of osteopenia. This represents a BMD change of 5.5% compared to the prior exam. FRACTURE RISK: The FRAX index suggests a ten year probability of major osteoporotic fracture of 19.8%, and of hip fracture 3.8%. MM/XR DEXA axial skeleton IMPRESSION: Based on bone mineral density, and according to World Health Organization (WHO) criteria, the diagnosis is consistent with osteoporosis. All bone density values are in grams per centimeter squared (g/cm2). Statistically, 68% of repeat scans fall within 1 SD (+/- 0.010 g/cm2 for AP spine L1-L4) and 1 SD (+/- 0.012 g/cm2 for femur total) FRAX is a trademark of the [employer]'s [place] for Metabolic Bone Disease, a World Health Organization (WHO) Collaborating Center. Electronically signed by: Jf Oleary MD 05/09/2025 09:39 AM EDT
== END 2025-05-09 08:41 | disposition home or self-care (01) ==
LOC: HO.MAMMO 08:40
PROVIDERS: PCP Internal Medicine; Visit Provider Internal Medicine
DX: Z12.31 Encounter for screening mammogram for malignant neoplasm of breast (principal); M81.0 Age-related osteoporosis without current pathological fracture
CPT/HCPCS: 77063; 77067; 77080

== ENCOUNTER → 2025-05-09 08:45 | Outpatient (BNV) | payer MEDICARE, MEDICAID, SELFPAY | PROVIDERS: PCP Internal Medicine; Visit Provider Radiology Diagnostic Radiology | DX: E28.39 Other primary ovarian failure (principal) | CPT/HCPCS: 77080 ==

== ENCOUNTER 2025-06-10 13:18 | Outpatient (AMB) | payer MEDICARE, MEDICAID, SELFPAY ==
--- NOTE | 2025-06-10 13:25 | AM.OFFVISNUR ---
Intake Visit Reasons: Prolia shot Intake Note: Pt arrived for first Prolia injection. Will repeat in 6 months. Allergies Iodinated Contrast Media (IV Contrast Dye) Allergy (Verified 01/22/25 13:16) Unconscious alendronate sodium (From Fosamax) Adverse Reaction (Intermediate, Verified 01/22/25 13:16) Dizziness atorvastatin Adverse Reaction (Intermediate, Verified 01/22/25 13:16) hair loss Erythromycin Allergy (Unknown, Uncoded 01/22/25 13:16) Hives Office Meds Prolia 60 mg/mL subcutaneous syringe Performing Provider: Lizette Samano MD Performing Location: [facility] Administered by: Becky Galindo RN on 06/10/25 13:26 Dose Route Admin Location Dispensed Lot Number Expiration Date [facility] Winding Lathe Operator 60 mg subcut left upper arm 1 mL [id number] 11/13/27 83607-200-08 [employer] Total Dispensed Waste 1 mL 0 % Comments: Pt supplied Assessment & Plan Assessment & Plan Orders: Orders AMB Denosumab Injection Patient Supplied Today M81.0 - Age-related osteoporosis without current pathological fracture Coding
== END 2025-06-10 13:44 | disposition home or self-care (01) ==
LOC: HO.HMCC 13:18
PROVIDERS: PCP Internal Medicine; Visit Provider Internal Medicine
DX: M81.0 Age-related osteoporosis without current pathological fracture (principal)

== ENCOUNTER → 2025-06-10 13:18 | Outpatient (BNVA) | payer MEDICARE, MEDICAID, SELFPAY | PROVIDERS: PCP Internal Medicine; Visit Provider Internal Medicine | DX: M81.0 Age-related osteoporosis without current pathological fracture (principal) | CPT/HCPCS: 96372; J0897 ==

== ENCOUNTER 2025-06-14 11:34 | Outpatient (AMB) | payer MEDICARE, MEDICAID, SELFPAY ==
[2025-06-14 11:36] VITALS: BP 110/70; PULSE 81; TEMP 36.9; O2SAT 98; BMI 24.0
--- NOTE | 2025-06-14 11:36 | A.OFFPC_ITS ---
Vital Signs 06/14/25 11:36 Height 5 ft 8 in Weight 158 lb BMI 24.0 BP 110/70 Blood Pressure Location Lt brachial Position Sitting Pulse 81 Pulse Source Pulse Oximeter Temp 98.4 F Temp Source Oral Pulse Oximetry (%) 98 Oxygen Delivery Method Room Air Intake Visit Reasons: Leg pain Intake Note: Pt is here today for a R hip pain that goes down her leg. Pt states that she thinks she has sciatica. Allergies Iodinated Contrast Media (IV Contrast Dye) Allergy (Verified 06/14/25 11:41) Unconscious alendronate sodium (From Fosamax) Adverse Reaction (Intermediate, Verified 06/14/25 11:41) Dizziness atorvastatin Adverse Reaction (Intermediate, Verified 06/14/25 11:41) hair loss Erythromycin Allergy (Unknown, Uncoded 06/14/25 11:41) Hives Medication List - Last Reconciled 06/14/25 by Lizette Samano MD amlodipine-benazepril 5-10 mg 1 cap PO DAILY baclofen 10 mg PO BID hydroxyzine HCl 25 mg PO TID PRN mirtazapine 15 mg PO BEDTIME paroxetine HCl 10 mg PO DAILY prednisone 10 mg PO DAILY Prolia (denosumab) 60 mg subcut [id number] NS propranolol 80 mg PO BID rosuvastatin (Crestor) 20 mg PO DAILY zolpidem 10 mg PO BEDTIME PRN Tobacco use date assessed: 06/14/25 Fall risk assessment: No Falls in past year Last assessed Fall Risk: 06/14/25 Dental Screening Dental Screen Date: 06/14/25 Did you have a dental visit in the last 12 months?: Yes Did you have a dental problem in the last 6 months where you did not have access to dental care?: No Was dental information given to patient?: Patient has dentist HPI Leg pain HPI Details Pt presents c/o LBP radiating to RLL for 1 month. Pt denies injury, weakness in extremities, change in bowel movements or urination. Patient had similar symptoms before and used to go for physical therapy with a good relief. She had lumbar MRI in the past consistent with degenerative disc disease. Hypertension , hyperlipidemia chronic depression are controlled on current medications [facility] Medical History Bilateral hand pain Shoulder pain, bilateral Annual physical exam History of Papanicolaou smear of cervix Hyperlipidemia Anxiety disorder IBS (irritable bowel syndrome) Major depressive disorder Hypertension Dysuria Surgical History History of appendectomy H/O colonoscopy Family History Father No problems noted. Mother Hypertension Social History Housing: Apartment Alcohol intake: never Patient Tobacco Use Status: Former Tobacco user Cigarettes Per Day: 0 e-Cigarette/Vaping Use: Never Used service: No Current occupational status: unemployed Cognitive needs: No Hearing needs: No Vision needs: Yes Questionnaire PHQ-9 Over the last 2 weeks, how often have you been bothered by any of the following problems? 1. Little interest or pleasure in doing things: several days 2. Feeling down, depressed, or hopeless: more than half the days 3. Trouble falling or staying asleep, or sleeping too much: not at all 4. Feeling tired or having little energy: not at all 5. Poor appetite or overeating: not at all 6. Feeling bad about yourself - or that you are a failure or have let yourself or your family down: not at all 7. Trouble concentrating on things, such as reading the newspaper or watching television: several days 8. Moving or speaking so slowly that other people could have noticed. Or the opposite - being so fidgety or restless that you have been moving around a lot more than usual: not at all 9. Thoughts that you would be better off or of hurting yourself in some way: not at all Total score: 4 Depression Screening Interpretation: Negative Depression Screening Done: Yes 15416 - PHQ-9 Billing: Yes Source: Developed by Drs. Jf Sullivan, Elina Dunn, Luis Manuel Rodrigues and colleagues, with an educational bryan from [employer]. Thrive Questionnaire Date Thrive assessed: 06/14/25 I am a: Patient What is your living situation today?: I have a steady place to live Within the past 12 months, did the food you bought not last and you didn't have the money to get more?: Never true Within the past 12 months, did you worry whether your food would run out before you got money to buy more?: Never true Do you have trouble paying for medicines?: No Do you have trouble getting transportation to medical appointments?: No Do you have trouble paying your heating and electricity bill?: No Do you have trouble taking care of your child, family member or friend?: No Do you have trouble with day-to-day activities such as bathing, preparing meals, shopping, managing finances, etc.?: No Are you currently unemployed and looking for a job?: No Are you interested in more education?: No Please select the resources that you would like help with: None THRIVE Score: 0 AUDIT C Alcohol Use Questionnaire (AUDIT-C) 1. How often do you have a drink containing alcohol?: Never 3. How often do you have six or more drinks on one occasion?: Never Total Score: 0 YOANA-7 AMB Questionnaire YOANA-7 Date YOANA - 7 assessed: 06/14/25 Feeling nervous, anxious, or on edge: 0 = Not at all Not being able to stop or control worryin = Not at all Worrying too much about different things: 0 = Not at all Trouble relaxin = Not at all Being so restless that it is hard to sit still: 0 = Not at all Becoming easily annoyed or irritable: 0 = Not at all Feeling afraid as if something awful might happen: 0 = Not at all Total YOANA-7 score (0-4 normal; 5-9 mild; 10-14 moderate; 15-21 severe): 0 Source: Developed by Drs. Jf Sullivan, Elina Dunn, Luis Manuel Rodrigues and colleagues, with an educational bryan from [employer]. YOANA-7 Assessment Billing YOANA-7 Assessment Tool: YOANA-7 Assessment 25858 Review of Systems Const All systems reviewed & are unremarkable except as noted in HPI and below Eyes Reports no additional complaints ENT Reports no additional complaints Card Reports no additional complaints Resp Reports no additional complaints GI Reports no additional complaints Physical exam (Primary Care) Vital Signs: Last Vital Signs Temp 98.4 F 06/14/25 11:36 Pulse 81 06/14/25 11:36 BP 110/70 06/14/25 11:36 Pulse Ox 98 06/14/25 11:36 Oxygen Delivery Method Room Air 06/14/25 11:36 BMI result Body Mass Index 24.0 Tobacco/Smoking Status: Tobacco use Status Tobacco use date assessed 06/14/25 06/14/25 11:44 Patient Tobacco Use Status Former Tobacco user 06/14/25 11:44 e-Cigarette/Vaping Use Never Used 06/14/25 11:44 PHQ-9: PHQ-9 Score PHQ-9: Total score 4 06/14/25 12:18 Depression Screening Interpretation: Negative Thrive Assessment: Date of Thrive Assessment Date Thrive assessed 06/14/25 06/14/25 11:47 Const General: no acute distress HENMT Head: Yes normal to inspection Throat: Yes posterior oropharynx normal Eyes General: appearance normal, both eyes and all related structures Neck Neck: Yes supple Resp Effort & Inspection: normal respiratory effort Auscultation: clear to auscultation bilaterally Cardio Rhythm: regular rhythm Heart sounds: S1 normal heart sound present and S2 normal heart sound present GI Inspection: Yes normal to inspection Palpation (GI): Soft to palpation Percussion: Yes normal to percussion Auscultation: normal bowel sounds Back/Spine/Pelvis Other: There is decreased range of motion in the lumbar spine straight leg rising 45 degrees on the right 90 degrees on the left, motor strength 5/5 b/l, deep tendon reflexes 2+ bilaterally Coding Level of Care Code Est Pt Level 4 (92246) Diagnoses Sciatica M54.30 Primary hypertension I10 Hypertension type: primary hypertension Hyperlipidemia E78.5 Additional Codes YOANA-7 Assessment Billing - YOANA-7 Assessment Tool: OYANA-7 Assessment 48294 ([id number]) PHQ-9 - 37727 - PHQ-9 Billing: Yes ([id number]) Assessment & Plan Assessment & Plan (1) Sciatica: Code(s): M54.30 - Sciatica, unspecified side Category: Medical Plan: For recurrent sciatica prednisone taper and baclofen prescribed, patient will be referred to physical therapy (2) Hypertension: Code(s): I10 - Essential (primary) hypertension Category: Medical Qualifiers: Hypertension type: primary hypertension Qualified Code(s): I10 - Essential (primary) hypertension Plan: Continue current medications (3) Hyperlipidemia: Comment: Intolerant to atorvastatin caused hair loss Code(s): E78.5 - Hyperlipidemia, unspecified Category: Medical Plan: Continue rosuvastatin Orders: Orders PT Evaluation and Treatment Today M54.30 - Sciatica, unspecified side Medications: New prednisone 4 tabl qd x 3 days, then 3 tabl qd x 3 days, then 2 tabl qd x 3 days, then 1 qd 10 mg PO DAILY 30 tabs 0RF baclofen 10 mg PO BID 30 tabs 0RF
== END 2025-06-14 13:33 | disposition home or self-care (01) ==
LOC: HO.HMCC 11:35
PROVIDERS: PCP Internal Medicine; Visit Provider Internal Medicine
DX: M54.30 Sciatica, unspecified side (principal); I10 Essential (primary) hypertension; E78.5 Hyperlipidemia, unspecified

== ENCOUNTER → 2025-06-14 11:34 | Outpatient (BNVA) | payer MEDICARE, MEDICAID, SELFPAY | PROVIDERS: PCP Internal Medicine; Visit Provider Internal Medicine | DX: M54.30 Sciatica, unspecified side (principal); E78.5 Hyperlipidemia, unspecified; I10 Essential (primary) hypertension | CPT/HCPCS: 96127; 99212 ==

== ENCOUNTER 2025-07-29 13:08 | Outpatient (AMB) | payer MEDICARE, MEDICAID, SELFPAY ==
[2025-07-29 13:15] VITALS: BP 160/80; PULSE 110; BMI 23.9
--- NOTE | 2025-07-29 13:15 | A.OFFVIS_ITS ---
Vital Signs 07/29/25 13:15 Height 5 ft 8 in Weight 157 lb 6.561 oz BMI 23.9 BP 160/80 H Blood Pressure Location Lt brachial Position Sitting Pulse 110 H Pulse Source Pulse Oximeter Intake Visit Reasons: 6 mth f/up Intake Note: 6mth f/up Video Game Script Writer Required: Yes Video Game Script Writer Language: Lebanese Video Game Script Writer Name: [id number] Accompanied by: Self / Same As Patient Allergies Iodinated Contrast Media (IV Contrast Dye) Allergy (Verified 06/14/25 11:41) Unconscious alendronate sodium (From Fosamax) Adverse Reaction (Intermediate, Verified 06/14/25 11:41) Dizziness atorvastatin Adverse Reaction (Intermediate, Verified 06/14/25 11:41) hair loss Erythromycin Allergy (Unknown, Uncoded 06/14/25 11:41) Hives Medication List - Last Reconciled 07/29/25 by Nae Pa, TOURIST ADVISER-C amlodipine-benazepril 5-10 mg 1 cap PO DAILY baclofen 10 mg PO BID hydroxyzine HCl 25 mg PO TID PRN mirtazapine 15 mg PO BEDTIME paroxetine HCl 10 mg PO DAILY prednisone 10 mg PO DAILY Prolia (denosumab) 60 mg subcut [id number] NS propranolol 80 mg PO BID rosuvastatin (Crestor) 20 mg PO DAILY zolpidem 10 mg PO BEDTIME PRN HPI HPI 6 mth f/up: Details: Deepika is a 64-year-old female past medical history of hypertension, hyperlipidemia, syncope, likely vasovagal, heart palpitations, brief SVT who presents for followup. Today she reports that she has been feeling generally well since her last visit 01/22/25. She is having issues with low back discomfort and sciatica. She is in physical therapy for this. She has not had any problems with lightheadedness, presyncope, syncope, falls. She does get brief rapid heart palpitations lasting sec on rare occasions. No chest discomfort, shortness of breath. She expresses some concern over mild leg edema. Normally she has good activity tolerance. Taking meds as directed. She continues to drink 1 caffeinated beverage a day. Certified Lebanese interpreter deaf used. [facility] Medical History Bilateral hand pain Shoulder pain, bilateral Annual physical exam History of Papanicolaou smear of cervix Hyperlipidemia Anxiety disorder IBS (irritable bowel syndrome) Major depressive disorder Hypertension Dysuria Surgical History History of appendectomy H/O colonoscopy Family History Father No problems noted. Mother Hypertension Social History Housing: Apartment Alcohol intake: never Patient Tobacco Use Status: Former Tobacco user Cigarettes Per Day: 0 e-Cigarette/Vaping Use: Never Used service: No Current occupational status: unemployed Cognitive needs: No Hearing needs: No Vision needs: Yes Review of Systems Const All systems reviewed & are unremarkable except as noted in HPI and below Denies chills, Denies fatigue, Denies fever(s), Denies frequent falls, Denies weakness, Denies weight gain and Denies weight loss ENT Denies dizziness Card Details: breif heart palpitations Denies chest pain, Denies leg edema, Denies lightheadedness, Denies palpitations, Denies dyspnea and Denies dyspnea on exertion Resp Denies cough, Denies dyspnea and Denies dyspnea on exertion GI Denies hematochezia Musc Details: low back pain and sciatica Denies abnormal gait, Denies muscle weakness, Denies numbness, Denies radiating pain into limb and Denies tingling Neuro Denies abnormal gait, Denies dizziness, Denies frequent falls, Denies numbness, Denies tingling and Denies weakness Endo Denies fatigue and Denies palpitations Physical Exam Vital Signs: Last Vital Signs Pulse 110 H 07/29/25 13:15 BP 160/80 H 07/29/25 13:15 BMI result Body Mass Index 23.9 Const General: healthy appearing, comfortable, no acute distress and anxious Orientation/consciousness: patient oriented x3 Neck Neck: Yes normal visual inspection Resp Effort & Inspection: normal respiratory effort Auscultation: clear to auscultation bilaterally, no crackles, no rales, no rhonchi and no wheezes Cardio Jugular venous distension: no JVD Rate: regular rate Rhythm: regular rhythm Heart sounds: S1 normal heart sound present, S2 normal heart sound present, no murmurs and no rubs Neuro General: patient oriented x3 Extrem General: Yes normal to inspection and No no pedal edema Psych Appearance: grossly normal Mental Status: mental status grossly normal Speech and movement: Normal speech and movement present Assessment & Plan Assessment & Plan (1) Palpitations: Code(s): R00.2 - Palpitations Category: Medical Plan: Patient reports brief rapid heart palpitations and prior Holter monitor confirmed frequent short runs of SVT. Symptoms mostly controlled with propranolol 80 mg b.i.d. Last holter done on 12/21/2023 for 3 days showed sinus rhythm with average heart rate 69, rare PACs. Pulse regular on examination today however mildly tachycardic. She has issues with anxiety and stress. Continue current propranolol. Consider reduction in caffeinated beverages. Stress reduction activities, increasing physical activity as tolerated. Cardiology follow-up in 6 year, sooner if needed. Emergency care if ever needed for sustained rapid heart palpitations. (2) Syncope: Code(s): R55 - Syncope and collapse Category: Medical Qualifiers: Syncope type: vasovagal syncope Qualified Code(s): R55 - Syncope and collapse Plan: 2 presyncopal episodes over a year ago, most likely vasovagal events. One episode occurred while having a mammogram. The 2nd episode occurred during a significant headache at home. In both cases she was in a standing position. No full syncope. Initial concern for possible CVA/TIA, at ER visit however CT and CTA of the head showed no acute findings. She does have 25-50% carotid stenosis, both ICAs. Echocardiogram was done 07/04/2023 showing EF greater than 70%, no valve abnormalities. Initial Holter monitor was done 07/04/2023 for 14 days showing sinus rhythm with average heart rate 72, frequent episodes of SVT, longest 21 beats with rate up to 228 beats per minute. She has not had any recurrent presyncope or syncope. If she does, then tilt table test will be ordered. (3) SVT (supraventricular tachycardia): Comment: on Propranolol Code(s): I47.1 - Supraventricular tachycardia Category: Medical Plan: As above (4) Carotid stenosis: Comment: 25-50% stenosis at the origin of internal carotid arteries bilaterally Code(s): I65.29 - Occlusion and stenosis of unspecified carotid artery Category: Medical Qualifiers: Laterality: bilateral Qualified Code(s): I65.23 - Occlusion and stenosis of bilateral carotid arteries Plan: CTA of the head 05/23/23 shows bilateral ICA stenosis, 25-50%. She is currently on aspirin 81 mg daily. She was intolerant to atorvastatin with hair loss. She is Rosuvastatin for cholesterol control. Labs 10/17/24 shows LDL 104. For now continue current rosuvastatin and recommend recheck of fasting lipids. (5) Hypertension: Code(s): I10 - Essential (primary) hypertension Category: Medical Qualifiers: Hypertension type: primary hypertension Qualified Code(s): I10 - Essential (primary) hypertension Plan: Blood pressure goal less than 130/80. Elevated today, 160/80, recheck done by me 148/82. Blood pressure was low, 110/70 at recent office visit elsewhere in our system. She does report having anxiety and stress. Stress reduction activities reviewed. No med changes. (6) Sciatica: Code(s): M54.30 - Sciatica, unspecified side Category: Medical Plan: Reports issues with low back pain and sciatica. Currently undergoing physical therapy and follows with PCP. (7) Edema: Code(s): R60.9 - Edema, unspecified Category: Medical Plan: Patient has concern about ankle and foot edema. None noted on examination. Reviewed low-salt diet and use of compression stockings as needed. Plan We discussed the management of tachycardia with propranolol and the importance of monitoring symptoms. I advised on managing peripheral edema with compression stockings and dietary salt reduction. We reviewed the current treatment for sciatica and the potential need for further evaluation if symptoms persist. Follow-up is scheduled in six months to reassess the patient's condition and treatment efficacy. Patient Instructions: - Continue taking prescribed medications as directed. - Wear compression stockings to manage leg swelling. - Monitor dietary salt intake to reduce edema. - Stay active and rest as needed to manage sciatica. - Schedule a follow-up appointment in six months. Patient was informed and verbally consented to the use of an ambient scribe for clinic note documentation during this visit. Visit time spent on chart review, interview, assessment, orders, documentation. Coding Level of Care Code Est Pt Level 4 (81627) Complex EM visit Add On G2211 Diagnoses Palpitations R00.2 Vasovagal syncope R55 Syncope type: vasovagal syncope SVT (supraventricular tachycardia) I47.1 Bilateral carotid artery stenosis I65.23 Laterality: bilateral Primary hypertension I10 Hypertension type: primary hypertension Sciatica M54.30 Edema R60.9 Time Spent (min) 28
== END 2025-07-29 13:47 | disposition home or self-care (01) ==
LOC: HO.HCS 13:09
PROVIDERS: PCP Internal Medicine; Visit Provider Nurse Practitioner Family
DX: R00.2 Palpitations (principal); R55 Syncope and collapse; I47.10 Supraventricular tachycardia, unspecified; I65.23 Occlusion and stenosis of bilateral carotid arteries; I10 Essential (primary) hypertension; M54.30 Sciatica, unspecified side; R60.9 Edema, unspecified
CPT/HCPCS: 99214; G2211

== ENCOUNTER → 2025-07-29 13:08 | Outpatient (BNVA) | payer MEDICARE, MEDICAID, SELFPAY | PROVIDERS: PCP Internal Medicine; Visit Provider Nurse Practitioner Family | DX: R55 Syncope and collapse (principal); R00.2 Palpitations; I47.10 Supraventricular tachycardia, unspecified; I65.23 Occlusion and stenosis of bilateral carotid arteries; I10 Essential (primary) hypertension; M54.30 Sciatica, unspecified side; R60.9 Edema, unspecified | CPT/HCPCS: 99212 ==

== ENCOUNTER 2025-08-02 09:58 | Outpatient (AMB) | payer MEDICARE, MEDICAID, SELFPAY ==
--- NOTE | 2025-08-02 10:02 | A.OFFPC_ITS ---
Vital Signs 08/02/25 10:03 Height 5 ft 8 in Weight 157 lb BMI 23.9 BP 124/80 Blood Pressure Location Lt brachial Position Sitting Pulse 80 Pulse Source Pulse Oximeter Temp 98.0 F Temp Source Oral Pulse Oximetry (%) 98 Oxygen Delivery Method Room Air Intake Visit Reasons: Follow up on sciatica pain Intake Note: Pt is here today for a follow up visit on sciatica pain. Allergies Iodinated Contrast Media (IV Contrast Dye) Allergy (Verified 08/02/25 10:06) Unconscious alendronate sodium (From Fosamax) Adverse Reaction (Intermediate, Verified 08/02/25 10:06) Dizziness atorvastatin Adverse Reaction (Intermediate, Verified 08/02/25 10:06) hair loss Erythromycin Allergy (Unknown, Uncoded 08/02/25 10:06) Hives Medication List - Last Reconciled 08/02/25 by Lizette Samano MD amlodipine-benazepril 5-10 mg 1 cap PO DAILY hydroxyzine HCl 25 mg PO TID PRN meloxicam 15 mg PO DAILY mirtazapine 15 mg PO BEDTIME paroxetine HCl 10 mg PO DAILY Prolia (denosumab) 60 mg subcut [id number] NS propranolol 80 mg PO BID rosuvastatin (Crestor) 20 mg PO DAILY tizanidine 4 mg PO BEDTIME PRN zolpidem 10 mg PO BEDTIME PRN Tobacco use date assessed: 08/02/25 Fall risk assessment: No Falls in past year Last assessed Fall Risk: 08/02/25 Dental Screening Dental Screen Date: 06/14/25 HPI Follow up on sciatica pain HPI Details Pt c/o persistent LBP and radiating to RLE and numbness sensation at the front of R foot and intermittent weakness in the right foot when walking. Patient denies any change in bowel or bladder function or saddle numbness. Pt tried PT without improvement. She tried baclofen without significant improvement. Patient was feeling better while taking prednisone taper. [facility] Medical History Sciatica Bilateral hand pain Shoulder pain, bilateral Annual physical exam History of Papanicolaou smear of cervix Hyperlipidemia Anxiety disorder IBS (irritable bowel syndrome) Major depressive disorder Hypertension Dysuria Surgical History History of appendectomy H/O colonoscopy Family History Father No problems noted. Mother Hypertension Social History Housing: Apartment Alcohol intake: never Patient Tobacco Use Status: Former Tobacco user Cigarettes Per Day: 0 e-Cigarette/Vaping Use: Never Used service: No Current occupational status: unemployed Cognitive needs: No Hearing needs: No Vision needs: Yes Questionnaire Thrive Questionnaire Date Thrive assessed: 06/14/25 YOANA-7 AMB Questionnaire YOANA-7 Date YOANA - 7 assessed: 06/14/25 Source: Developed by Drs. Jf Sullivan, Elina Dunn, Luis Manuel Rodrigues and colleagues, with an educational bryan from [employer]. Review of Systems Const All systems reviewed & are unremarkable except as noted in HPI and below ENT Reports no additional complaints Card Reports no additional complaints Resp Reports no additional complaints GI Reports no additional complaints Reports no additional complaints Physical exam (Primary Care) Vital Signs: Last Vital Signs Temp 98.0 F 08/02/25 10:03 Pulse 80 08/02/25 10:03 BP 124/80 08/02/25 10:03 Pulse Ox 98 08/02/25 10:03 Oxygen Delivery Method Room Air 08/02/25 10:03 BMI result Body Mass Index 23.9 Tobacco/Smoking Status: Tobacco use Status Tobacco use date assessed 08/02/25 08/02/25 10:08 Patient Tobacco Use Status Former Tobacco user 08/02/25 10:08 e-Cigarette/Vaping Use Never Used 08/02/25 10:08 Thrive Assessment: Date of Thrive Assessment Date Thrive assessed 06/14/25 08/02/25 10:08 Const General: no acute distress HENMT Ears: hearing grossly normal bilaterally Resp Effort & Inspection: normal respiratory effort Auscultation: clear to auscultation bilaterally Cardio Rhythm: regular rhythm Heart sounds: S1 normal heart sound present and S2 normal heart sound present Back/Spine/Pelvis Other: Paraspinal tenderness in lower lumbar region in the right side straight leg rising 20 degrees on the right 90 degrees on the left, deep tendon reflexes 2+ bilaterally, patient unable to walk on toes or heels due to pain but is able to lift her toes and heel on the right side Coding Level of Care Code Est Pt Level 4 (37264) Diagnoses Sciatica M54.30 Primary hypertension I10 Hypertension type: primary hypertension Assessment & Plan Assessment & Plan (1) Sciatica: Code(s): M54.30 - Sciatica, unspecified side Category: Medical Plan: For chronic persistent sciatica without improvement with physical therapy MRI lumbar spine will be obtained to evaluate for radiculopathy. Meloxicam and tizanidine are prescribed and patient will be referred to physical therapy (2) Hypertension: Code(s): I10 - Essential (primary) hypertension Category: Medical Qualifiers: Hypertension type: primary hypertension Qualified Code(s): I10 - Essential (primary) hypertension Plan: Continue current medications Orders: Referrals Pain Management Referral M54.30 - Sciatica, unspecified side Medications: New meloxicam 15 mg PO DAILY 30 tabs 0RF tizanidine 4 mg PO BEDTIME PRN 30 caps 0RF muscle spasticity
[2025-08-02 10:03] VITALS: BP 124/80; PULSE 80; TEMP 36.7; O2SAT 98; BMI 23.9
== END 2025-08-02 12:13 | disposition home or self-care (01) ==
LOC: HO.HMCC 09:58
PROVIDERS: PCP Internal Medicine; Visit Provider Internal Medicine
DX: M54.30 Sciatica, unspecified side (principal); I10 Essential (primary) hypertension

== ENCOUNTER → 2025-08-02 09:58 | Outpatient (BNVA) | payer MEDICARE, MEDICAID, SELFPAY | PROVIDERS: PCP Internal Medicine; Visit Provider Internal Medicine | DX: I10 Essential (primary) hypertension (principal); M54.31 Sciatica, right side | CPT/HCPCS: 99212 ==

== ENCOUNTER 2025-08-30 13:08 | Outpatient (REF) | payer MEDICARE, MEDICAID, SELFPAY ==
--- NOTE | ~2025-08-30 | MR_ITS ---
EXAMINATION: MR LUMBAR SPINE WITHOUT CONTRAST CLINICAL INFORMATION: M54.30. Sciatica, unspecified site. COMPARISON: Correlated to x-ray dated April 06, [address] abdomen pelvis dated July 08, 2023. TECHNIQUE: MRI of the lumbar spine was obtained using routine sequences without contrast. FINDINGS: Last rib-bearing vertebra labeled T12. No bone marrow STIR signal abnormality. Bone marrow inhomogeneity. Superior endplate compression deformity representing 40% volume loss of the anterior aspect of the vertebral body without gross retropulsion. Disc desiccation at L5-S1. 1 mm retrolisthesis L5-S1. Conus medullaris ends at pedicle of L1 with normal signal. T11-12: Broad-based disc bulging. Facet joint hypertrophy. Reduced AP diameter of the thecal sac without compression. T12-L1: Broad-based disc bulging. Facet joint hypertrophy. No central spinal canal or neuroforamina stenosis. L1-2: Broad-based disc bulging. Facet joint hypertrophy. No central spinal canal or neuroforamina stenosis. L2-3: [Subarticular and foraminal broad-based disc herniation likely compressing the left L3 exiting nerve root on its lateral recess. Facet joint hypertrophy. L3-4: Broad-based disc bulging. Facet joint and ligamentum flavum hypertrophy. Reduced AP diameter of the thecal sac and neuroforamina. L4-5: [Subarticular broad-based disc herniation with a focal hyperintense T2 signal likely annular fissure encroaching posterior compressing the left L5 nerve root on its lateral recess. Facet joint and ligamentum flavum hypertrophy. Central spinal canal and bilateral neuroforamina stenosis encroaching the neural elements. L5-S1: There is a central left subarticular broad-based herniated disc with caudal migration compressing the S1 nerve roots, bilaterally and encroaching the L5 nerve roots. There is a focal hyperintense T2 signal likely annular fissure. Cystic lesions in the left kidney. MR/MR lumbar spine wo con IMPRESSION: Central and left subarticular broad-based extruded disc at L5-S1 compressing the S1 and likely L5 nerve roots. Left subarticular herniated disc at L4-5 compressing and left L5 nerve root. Left subarticular and foraminal herniated disc at L2-3 encroaching posterior compressing left L3 exiting nerve root.. Old superior endplate compression deformity at L1. Electronically signed by: Parth Edward MD 08/30/2025 02:04 PM EDT
== END 2025-08-30 13:09 | disposition home or self-care (01) ==
LOC: HO.MRI 13:08
PROVIDERS: Visit Provider Internal Medicine
DX: M54.30 Sciatica, unspecified side (principal)
CPT/HCPCS: 72148

== ENCOUNTER → 2025-08-30 13:23 | Outpatient (BNV) | payer MEDICARE, MEDICAID, SELFPAY | PROVIDERS: Visit Provider Radiology Diagnostic Radiology | DX: M51.17 Intervertebral disc disorders with radiculopathy, lumbosacral region (principal) | CPT/HCPCS: 72148 ==

== ENCOUNTER 2025-09-20 11:35 | Outpatient (AMB) | payer MEDICARE, MEDICAID, SELFPAY ==
--- OUTSIDE RECORDS SUMMARY | 2025-09-20 10:00 | XMS_ITS | Encounter Summary ---
Author Organization [facility] Address [address] [place] [address] Care Team Providers Care Network Security Engineer Name Role Phone Lizette Samano MD Primary Care Provider [phone] Reason for Referral * Consultation (Routine) - Authorized Specialty Diagnoses / Procedures Referred By Virgilio moran Referred To Contact Physical Therapy Diagnoses Lumbar disc herniation with radiculopathy Kameron Chase PA [address] [address] Phone: tel: fax: Referral ID Status Reason Start Date Expiration Date Visits Requested Visits Authorized [id number] Authorized Specialty Services Required 09/20/2025 09/20/2026 1 1 Reason for Visit * Reason Comments Back Pain M54.42 Lumbago w/sci atica, left side M54.41 Lumbago w/sciatica, right side. Four months * Consultation (Routine) - Authorized Specialty Diagnoses / Procedures Referred By Virgilio moran Referred To Contact Neurosurgery Diagnoses Low back pain due to bilateral sciatica Lizette Samano MD [facility] [place] [address] Phone: tel: fax: Neurosurgery [facility] [address] [address] Phone: tel: fax: Referral ID Status Reason Start Date Expiration Date Visits Requested Visits Authorized [id number] Authorized Specialty Services Required 09/18/2025 09/18/2026 1 1 Encounter Details Date Type Department Care Team (Late st Contact Info) Description 09/20/2025 10:00 AM EST Consult [facility]surgery [place] [facility] [place] [address] [place] [id number] Kameron Chase PA [address] [place] [address] Lumbar disc herniation with radiculopathy (Primary Dx) Social History Tobacco Use Types Packs/Day Years Used Date Smoking Tobacco: Never Assessed Comments Unknown Sex and Gender Information Value Date Recorded Sex Assigned at Not on file Legal Sex Female 1:31 PM EST Gender Identity Not on file Sexual Orientation Not on file documented as of this encounter Last Filed Vital Signs Vital Sign Reading Time Taken Comments Blood Pressure - - Pulse - - Temperature - - Respiratory Rate - - Oxygen Saturation - - Inhaled Oxygen Concentration - - Weight 70.3 kg (155 lb) 09/20/2025 9:58 AM EST Height 172.7 cm (5' 8 ) 09/20/2025 9:58 AM EST Body Mass Index 23.57 09/20/2025 9:58 AM EST documented in this encounter Progress Notes * ENIO Marte - 09/20/2025 11:06 AM ESTAssociated Problem(s): Lumbar disc herniation with radiculopathy Ms. Steel is a 65-year-old Albanian speaking woman who describes a 4-month history of right leg pain and a mixed L5 and S1 distribution. She went to physical therapy earlier in the course without any relief. She is neurologically intact but obviously in significant pain in the right lower extremity. MRI of the lumbar spine from [facility] dated August 30, 2025 does show a right sided L5-S1 fragment wedged between the L5 and S1 nerve root. It was reviewed with Dr. Maguire who did say that a right L5-S1 minimally invasive microdiscectomy was reasonable. I discussed the situation with the patient describing the surgery, risks, expected benefits, and alternatives in detail. At this point she would like to try another course of physical therapy. [facility] * ENIO Marte - 09/20/2025 10:00 AM EST NEW PATIENT CONSULTATION Date of Visit: 09/20/2025 Referring Physician: Lizette Samano MD Primary Care Physician: Lizette Samano MD RE: Deepika Steel : 1960 Chief Complaint Patient presents with Back Pain M54.42 Lumbago w/sciatica, left side M54.41 Lumbago w/sciatica, right side. Four months Dear Lizette Escobar MD Thank you for referring Ms. Steel to our office today. Deepika Steel is a 65 y.o. female who presents to our office with 4-month history of low back and right leg pain. She is Albanian speaking and was seen with the aid of a Albanian telephone machine cloth trimmer named Darwin she describes painfrom the right side of the low back into the buttock, posterolateral thigh and posterior calf. She had a couple of weeks of physical therapy without any relief and to our office for evaluation. She denies left leg pain or problems with bowel or bladder control. She denies any perineal numbness. Shedoes have some urinary urgency secondary to the pain. She takes 15 mg meloxicam and 10 mg cyclobenza campbell with a modicum of relief. Medical History[1] Surgical History[2] Allergies[3] Current Outpatient Medications Medication Instructions amLODIPine-benazepril (LOTREL) 5-10 mg per capsule 1 capsule, Daily baclofen (LIORESAL) 10 mg, 2 times daily buPROPion SR (WELLBUTRIN SR) 100 mg 12 hr tablet TAKE 1 TABLET BY MOUTH TWICE A DAY IN THE AM AND EVENING cholecalciferol (VITAMIN D-3) 2,000 Units, Daily clonazePAM (KlonoPIN) 1 mg tablet TAKE 1 TABLET BY MOUTH TWICE DAILY AND TAKE 1 TABLET AT BEDTIME cyclobenzaprine (FLEXERIL) 10 mg hydrOXYzine HCL (ATARAX) 25 mg, 4 times daily PRN meloxicam (MOBIC) 15 mg, Daily mirtazapine (REMERON) 15 mg tablet TAKE 1/2-1 TAB DAILY AT BEDTIME FOR SLEEP OLANZapine (ZYPREXA) 20 mg, Nightly PARoxetine (PAXIL) 10 mg tablet TAKE 1 TABLET BY MOUTH AT BEDTIME TOGETHER WITH A 40MG TABLET. TOTAL DAILY DOSE 50MG. predniSONE (DELTASONE) 10 mg tablet TAKE 4 TABS BY MOUTH ONCE DAILY X3DAYS, 3 TABS DAILY X3DAYS, 2 TABS DAILY X3DAYS, 1 TAB DAILY X3DAYS Prolia 60 mg/mL syringe syringe propranoloL (INDERAL) 80 mg, 2 times daily rosuvastatin (CRESTOR) 20 mg, Daily tiZANidine (ZANAFLEX) 2 mg tablet TAKE 1 TABLET ORALLY EVERY 8 HOURS NEEDED FOR MUSCLE SPASTICITY traZODone (DESYREL) 50 mg tablet TAKE 1-3 TABLET BY MOUTH EVERY NIGHT AT BEDTIME FOR SLEEP zolpidem (AMBIEN) 10 mg, Nightly PRN Social History[4] Social History Social History Narrative Not on file Family History[5] Review of systems was notable for depression, anxiety, high blood pressure and the history of present illness. It was negative for chest pain or shortness of breath, fevers, shakes or chills. Physical Exam On physical examination the patient is 5 feet 8 inches tall and weighs 155 pounds. She is awake andalert and oriented. Speech was clear and fluent in Albanian. Respirations were unlabored and heart had a regular rate. She ambulates in the office without difficulty. She had good strength in all majormuscle groups of the upper and lower extremities. She was in obvious discomfort deep tendon reflexes were diffusely depressed. Hip mechanical testing was negative bilaterally. Imaging Agnostic studies include an MRI of the lumbar spine from [facility] dated August 30, 2025. This did reveal a small left L2-3 disc herniation that was in contact with the left L3 nerve root. At L4-5 there was a left annular tear which did contact the left L5 nerve root. At L5-S1 there was a large left- sided disc herniation with an extruded fragment off to the right-hand side caught inthe axilla between the L5 and S1 nerve. Assessment/Plan Problem List Items Addressed This Visit Lumbar disc herniation with radiculopathy - Primary Ms. Steel is a 65-year-old Albanian speaking woman who describes a 4-month history of right leg pain and a mixed L5 and S1 distribution. She went to physical therapy earlier in the course without any relief. She is neurologically intact but obviously in significant pain in the right lower extremity. MRI of the lumbar spine from [facility] dated August 30, 2025 does show a right sided L5-S1 fragment wedged between the L5 and S1 nerve root. It was reviewed with Dr. Maguire who did say that a right L5-S1 minimally invasive microdiscectomy was reasonable. I discussed the situation with the patient describing the surgery, risks, expected benefits, and alternatives in detail. At this point she would like to try another course of physical therapy. She will follow-up with us at the conclusion. Relevant Orders Ambulatory referral to Physical Therapy and Athletic Training Thank you for allowing us to care for your patient. ENIO Marte on 09/20/2025 at 11:06 AM EST CC: Lizette Samano MD Joanna S Cichon, MD [facility] [place] [1] Past Medical History: Diagnosis Date Anxiety High blood pressure [2] Past Surgical History: Procedure Laterality Date APPENDECTOMY [3] Allergies Allergen Reactions Erythromycin [4] [5] No family history on file. documented in this encounter Plan of Treatment Upcoming Encounters Date Type Department Care Team (Late st Contact Info) Description 10/30/2025 1:00 PM EST Office Visit Neurosurgery [place] [address] [phone] Kameron Chase PA [address] [facility] [address] [place] [address] Scheduled Referrals Name Type Priority Associated Diagnoses Orde r Schedule Ambulatory referral to Physical Therapy and Athletic Training Outpatient Referral Routine Lumbar disc herniation with radiculopathy Expected: 09/20/2025 (Approximate), Expires: 09/20/2026 documented as of this encounter Visit Diagnoses Diagnosis Lumbar disc herniation with radiculopathy- Primary Displacement of lumbar intervertebral disc without myelopathy documented in this encounter Historical Medications * This list may reflect changes made after this encounter. zolpidem (AMBIEN) 10 mg tablet Take 1 tablet (10 mg total) by mouth at bedtime as needed for sleep. 05/10/2025 traZODone (DESYREL) 50 mg tablet TAKE 1-3 TABLET BY MOUTH EVERY NIGHT AT BEDTIME FOR SLEEP 08/02/2025 tiZANidine (ZANAFLEX) 2 mg tablet TAKE 1 TABLET ORALLY EVERY 8 HOURS NEEDED FOR MUSCLE SPASTICITY 08/13/2025 rosuvastatin (CRESTOR) 20 mg tablet Take 1 tablet (20 mg total) by mouth 1 (one) time each day. 09/14/2025 propranoloL (INDERAL) 80 mg tablet Take 1 tablet (80 mg total) by mouth 2 (two) times a day. 01/26/2025 predniSONE (DELTASONE) 10 mg tablet TAKE 4 TABS BY MOUTH ONCE DAILY X3DAYS, 3 TABS DAILY X3DAYS, 2 TABS DAILY X3DAYS, 1 TAB DAILY X3DAYS 06/14/2025 PARoxetine (PAXIL) 10 mg tablet TAKE 1 TABLET BY MOUTH AT BEDTIME TOGETHER WITH A 40MG TABLET. TOTAL DAILY DOSE 50MG. 06/24/2025 OLANZapine (ZyPREXA) 20 mg tablet Take 1 tablet (20 mg total) by mouth at bedtime. 08/28/2025 mirtazapine (REMERON) 15 mg tablet TAKE 1/2-1 TAB DAILY AT BEDTIME FOR SLEEP 06/11/2025 meloxicam (MOBIC) 15 mg tablet Take 1 tablet (15 mg total) by mouth 1 (one) time each day. 08/29/2025 hydrOXYzine HCL (ATARAX) 25 mg tablet Take 1 tablet (25 mg total) by mouth 4 (four) times a day if needed. 08/20/2025 Prolia 60 mg/mL syringe syringe 06/01/2025 cyclobenzaprine (FLEXERIL) 10 mg tablet Take 1 tablet (10 mg total) by mouth. at bedtime. 09/06/2025 clonazePAM (KlonoPIN) 1 mg tablet TAKE 1 TABLET BY MOUTH TWICE DAILY AND TAKE 1 TABLET AT BEDTIME 09/13/2025 cholecalciferol (VITAMIN D-3) 50 mcg (2,000 unit) tablet Take 1 tablet (2,000 Units total) by mouth 1 (one) time each day. 09/17/2025 buPROPion SR (WELLBUTRIN SR) 100 mg 12 hr tablet TAKE 1 TABLET BY MOUTH TWICE A DAY IN THE AM AND EVENING 05/25/2025 baclofen (LIORESAL) 10 mg tablet Take 1 tablet (10 mg total) by mouth 2 (two) times a day. 07/08/2025 amLODIPine-benaz epril (LOTREL) 5-10 mg per capsule Take 1 capsule by mouth 1 (one) time each day. 08/25/2025 added in this encounter Orders Outpatient Referral Count Last Ordered Date Fir st Ordered Date AMB REFERRAL TO NEUROSURGERY 1 09/20/2025 documented in this encounter Care Teams Network Security Engineer Relationship Specialty Start Date End Date Lizette Samano MD [address] [place] [id number] PCP - General Internal Medicine 09/18/25 documented as of this encounter
--- NOTE | 2025-09-20 11:38 | MHC.OFFVIS ---
Vital Signs 09/20/25 11:39 Height 5 ft 8 in Weight 160 lb BMI 24.3 BP 183/88 H Blood Pressure Location Lt brachial Position Sitting Respiration 16 Pulse 117 H Pulse Source Pulse Oximeter Pulse Oximetry (%) 99 Oxygen Delivery Method Room Air Intake Visit Reasons: sciatica Filler Room Attendant Required: Yes Accompanied by: Self / Same As Patient Allergies Iodinated Contrast Media (IV Contrast Dye) Allergy (Verified 09/20/25 11:45) Unconscious alendronate sodium (From Fosamax) Adverse Reaction (Intermediate, Verified 09/20/25 11:45) Dizziness atorvastatin Adverse Reaction (Intermediate, Verified 09/20/25 11:45) hair loss Erythromycin Allergy (Unknown, Uncoded 08/02/25 10:06) Hives HPI Comments Details: The patient is a 65-year-old female presenting with back pain radiating down the right leg to the foot. The pain has been present for four months and extends from the back down to the foot. Denies inciting injury, fall, trauma. There is a history of lumbar disc issues occurring every 2-3 years, with the current episode involving three bulging discs at L3-4-5 as seen on MRI. The pain is associated with nerve root compression, causing sciatica symptoms, and is exacerbated by certain movements. The patient has not had any injections previously but has undergone physical therapy, which provided temporary relief. She has tried various medications including ibuprofen, Tylenol, Aleve, cyclobenzaprine, meloxicam, tizanidine, and prednisone, none of which have provided lasting relief. The patient was referred to a neurosurgeon who suggested physical therapy and mentioned surgery as a potential option, though the patient is hesitant due to lack of support at home post-surgery. She is considering steroid injections but is apprehensive about the procedure. Denies red flag symptoms including new loss of bowel, bladder or saddle anesthesia - Onset: Pain began 4 months ago (this episode), has experienced similar pain in the past. - Quality: Radiating pain from the back down the right leg to the foot. - Exacerbating factors: Certain movements worsen the pain. - Relieving factors: Physical therapy provided temporary relief. - Affect: Pain has impacted sleep, causing insomnia for four months. - Analgesia: Tried ibuprofen, Tylenol, Aleve, cyclobenzaprine, meloxicam, tizanidine, prednisone; considering pregabalin (Lyrica). - Adverse Effects: Concerns about potential side effects of pregabalin, such as sleepiness. - Activities of Daily Living: Pain interferes with daily activities and sleep. - Aberrant Drug Related Behaviors: No aberrant behaviors reported. [facility] Medical History (Updated 09/23/25 @ 09:03 by Haven Grullon, CLINICAL SOCIAL WORK THERAPIST, [employer]) Lower back pain Sciatica Bilateral hand pain Shoulder pain, bilateral Annual physical exam History of Papanicolaou smear of cervix Hyperlipidemia Anxiety disorder IBS (irritable bowel syndrome) Major depressive disorder Hypertension Dysuria Surgical History History of appendectomy H/O colonoscopy Family History Father No problems noted. Mother Hypertension Social History Housing: Apartment Alcohol intake: never Patient Tobacco Use Status: Former Tobacco user Cigarettes Per Day: 0 e-Cigarette/Vaping Use: Never Used service: No Current occupational status: unemployed Cognitive needs: No Hearing needs: No Vision needs: Yes Review of Systems Narrative - Musculoskeletal: Reports pain radiating from the back down the right leg. - Neurological: Reports nerve pain due to pinched nerve. - General: Reports insomnia for four months secondary to pain. Physical Exam Exam Exam: General: awake, alert, oriented. Answers questions appropriately. Fully engaged in examination. Appears uncomfortable. Skin: warm, dry, intact HEENT: Normocephalic. Hearing intact. Cardiac: External chest normal in appearance. Respiratory: No cough, audible wheezing or stridor. Abdomen: without gross distension. MS: No obvious swelling or deformities. Able to stand on bilateral tiptoes and bilateral heels.? Able to transition from sit to stand unassisted. Ambulates with bilaterally normal heel strike and toe off Significantly decreased lumbar range of motion, pain with movement SLR positive on the right Negative footdrop, negative clonus Neurological: Oriented to person, place, time and situation. Thought process intact. No gait abnormalities appreciated. Psychiatric: Appropriate mood and affect. Good judgment and insight. Vital Signs: Last Vital Signs Pulse 117 H 09/20/25 11:39 Resp 16 09/20/25 11:39 BP 183/88 H 09/20/25 11:39 Pulse Ox 99 09/20/25 11:39 Oxygen Delivery Method Room Air 09/20/25 11:39 BMI result Body Mass Index 24.3 Results Reviewed Results Reviewed: 08/30/2025 MRI lumbar spine FINDINGS: Last rib-bearing vertebra labeled T12. No bone marrow STIR signal abnormality. Bone marrow inhomogeneity. Superior endplate compression deformity representing 40% volume loss of the anterior aspect of the vertebral body without gross retropulsion. Disc desiccation at L5-S1. 1 mm retrolisthesis L5-S1. Conus medullaris ends at pedicle of L1 with normal signal. T11-12: Broad-based disc bulging. Facet joint hypertrophy. Reduced AP diameter of the thecal sac without compression. T12-L1: Broad-based disc bulging. Facet joint hypertrophy. No central spinal canal or neuroforamina stenosis. L1-2: Broad-based disc bulging. Facet joint hypertrophy. No central spinal canal or neuroforamina stenosis. L2-3: [Subarticular and foraminal broad-based disc herniation likely compressing the left L3 exiting nerve root on its lateral recess. Facet joint hypertrophy. L3-4: Broad-based disc bulging. Facet joint and ligamentum flavum hypertrophy. Reduced AP diameter of the thecal sac and neuroforamina. L4-5: [Subarticular broad-based disc herniation with a focal hyperintense T2 signal likely annular fissure encroaching posterior compressing the left L5 nerve root on its lateral recess. Facet joint and ligamentum flavum hypertrophy. Central spinal canal and bilateral neuroforamina stenosis encroaching the neural elements. L5-S1: There is a central left subarticular broad-based herniated disc with caudal migration compressing the S1 nerve roots, bilaterally and encroaching the L5 nerve roots. There is a focal hyperintense T2 signal likely annular fissure. Cystic lesions in the left kidney. IMPRESSION: Central and left subarticular broad-based extruded disc at L5-S1 compressing the S1 and likely L5 nerve roots. Left subarticular herniated disc at L4-5 compressing and left L5 nerve root. Left subarticular and foraminal herniated disc at L2-3 encroaching posterior compressing left L3 exiting nerve root.. Old superior endplate compression deformity at L1. Assessment & Plan Assessment & Plan (1) Degenerative disc disease, lumbar: Code(s): M51.36 - Other intervertebral disc degeneration, lumbar region Category: Medical (2) Lumbar disc herniation with radiculopathy: Code(s): M51.16 - Intervertebral disc disorders with radiculopathy, lumbar region Category: Medical Plan The patient was advised to consider steroid injections for temporary relief of her sciatica symptoms, although she expressed apprehension about the procedure. Pregabalin (Lyrica) was prescribed to manage nerve pain, starting at a low dose to assess tolerance and effectiveness. The patient was informed that surgery should also be considered as this was offered by neurosurgeon as treatment for her condition, but she is currently hesitant due to lack of post-operative support. Physical therapy was recommended as a non-invasive option to manage symptoms, with the understanding that it may provide temporary relief. Patient was referred by neurosurgery office, start date pending. Patient was informed and verbally consented to the use of an ambient scribe for clinic note documentation during this visit. Medications: New pregabalin 50 mg PO BID 60 caps 1RF Patient Instructions: - Consider steroid injections for temporary pain relief. - Start pregabalin (Lyrica) as prescribed and monitor for side effects. - Continue with physical therapy sessions as tolerated. - Contact the office if there are any issues with the medication or if you decide to proceed with injections. Coding Level of Care Code New Pt Level 4 (59961) Complex EM visit Add On G2211 Diagnoses Degenerative disc disease, lumbar M51.36 Lumbar disc herniation with radiculopathy M51.16
[2025-09-20 11:39] VITALS: BP 183/88; PULSE 117; RESP 16; O2SAT 99; BMI 24.3
--- OUTSIDE RECORDS SUMMARY | 2025-09-20 14:01 | XMS_ITS | Clinical Summary ---
Author Organization [address] [facility] Address [address] [place] [address] Phone Care Team Providers Care Vehicle Controls Engineer Name Role Phone Lizette Samano MD Primary Care Provider [phone] Allergies Active Allergy Reactions Criticality Noted Date Comments Erythromycin 02/16/2013 Medications amLODIPine-shari zepril (LOTREL) 5-10 mg per capsule Take 1 capsule by mouth 1 (one) time each day. 5 Active baclofen (LIORESAL) 10 mg tablet Take 1 tablet (10 mg total) by mouth 2 (two) times a day. 5 Active buPROPion SR (WELLBUTRIN SR) 100 mg 12 hr tablet TAKE 1 TABLET BY MOUTH TWICE A DAY IN THE AM AND EVENING 5 Active cholecalciferol (VITAMIN D-3) 50 mcg (2,000 unit) tablet Take 1 tablet (2,000 Units total) by mouth 1 (one) time each day. 5 Active clonazePAM (KlonoPIN) 1 mg tablet TAKE 1 TABLET BY MOUTH TWICE DAILY AND TAKE 1 TABLET AT BEDTIME 5 Active cyclobenzaprine (FLEXERIL) 10 mg tablet Take 1 tablet (10 mg total) by mouth. at bedtime. 5 Active Prolia 60 mg/mL syringe syringe 5 Active hydrOXYzine HCL (ATARAX) 25 mg tablet Take 1 tablet (25 mg total) by mouth 4 (four) times a day if needed. 5 Active meloxicam (MOBIC) 15 mg tablet Take 1 tablet (15 mg total) by mouth 1 (one) time each day. 5 Active mirtazapine (REMERON) 15 mg tablet TAKE 1/2-1 TAB DAILY AT BEDTIME FOR SLEEP 5 Active OLANZapine (ZyPREXA) 20 mg tablet Take 1 tablet (20 mg total) by mouth at bedtime. 5 Active PARoxetine (PAXIL) 10 mg tablet TAKE 1 TABLET BY MOUTH AT BEDTIME TOGETHER WITH A 40MG TABLET. TOTAL DAILY DOSE 50MG. 5 Active predniSONE (DELTASONE) 10 mg tablet TAKE 4 TABS BY MOUTH ONCE DAILY X3DAYS, 3 TABS DAILY X3DAYS, 2 TABS DAILY X3DAYS, 1 TAB DAILY X3DAYS 5 Active propranoloL (INDERAL) 80 mg tablet Take 1 tablet (80 mg total) by mouth 2 (two) times a day. 5 Active rosuvastatin (CRESTOR) 20 mg tablet Take 1 tablet (20 mg total) by mouth 1 (one) time each day. 5 Active tiZANidine (ZANAFLEX) 2 mg tablet TAKE 1 TABLET ORALLY EVERY 8 HOURS NEEDED FOR MUSCLE SPASTICITY 5 Active traZODone (DESYREL) 50 mg tablet TAKE 1-3 TABLET BY MOUTH EVERY NIGHT AT BEDTIME FOR SLEEP 5 Active zolpidem (AMBIEN) 10 mg tablet Take 1 tablet (10 mg total) by mouth at bedtime as needed for sleep. 5 Active Active Problems Problem Noted Date Diagnosed Date Lumbar disc herniation with radiculopathy 2024 Assessment & Plan (09/20/2025 11:06 AM EST): Ms. Nuñez is a 65-year-old Nepalese speaking woman who describes a 4-month history of right leg pain and a mixed L5 and S1 distribution. She went to physical therapy earlier in the course without any relief. She is neurologically intact but obviously in significant pain in the right lower extremity. MRI of the lumbar spine from [facility] dated August 30, 2025 does show a [...] will follow-up with us at the conclusion. Encounters Date Type Department Care Team Description 09/20/2025 10:00 AM EST Consult [facility] [address] [phone] Kameron Chase PA Lumbar disc herniation with radiculopathy (Primary Dx) from Last 3 Months Surgical History Surgery Date Site/Laterality Comments APPENDECTOMY Medical History Medical History Date Comments High blood pressure Anxiety Social History Tobacco Use Types Packs/Day Years Used Date Smoking Tobacco: Never Assessed Comments Unknown Sex and Gender Information Value Date Recorded Sex Assigned at Not on file Legal Sex Female 1:31 PM EST Gender Identity Not on file Sexual Orientation Not on file Obstetrics History Last Filed Vital Signs Vital Sign Reading Time Taken Comments Blood Pressure - - Pulse - - Temperature - - Respiratory Rate - - Oxygen Saturation - - Inhaled Oxygen Concentration - - Weight 70.3 kg (155 lb) 09/20/2025 9:58 AM EST Height 172.7 cm (5' 8 ) 09/20/2025 9:58 AM EST Body Mass Index 23.57 09/20/2025 9:58 AM EST Plan of Treatment Upcoming Encounters Date Type Department Care Team ([facility] st Contact Info) Description 10/30/2025 1:00 PM EST Office Visit [facility] [address] [phone] Kameron Chase PA [address] [place] [id number] Health Maintenance Due Date Last Done Comments Breast Cancer Screening 1960 Colorectal Cancer Screening: Colonoscopy 1960 DTaP,Tdap,and Td Vaccines (1 - Tdap) 1977 Pneumococcal Vaccine: 50+ Ye ars (1 of 1 - PCV) 2008 Zoster Vaccines (1 of 2) 2008 Depression Screening 11/14/2024 COVID-19 Vaccine ( - 2023-2 5 season) 2025 Influenza Vaccine (#1) 2025 Cholesterol Screening (Lipid Panel) 09/18/2025 Falls Risk Assessment 09/18/2025 Hepatitis C Screening 09/18/2025 Hypertension/CHF/CAD Annual BMP Blood Test 09/18/2025 Medicare Annual Wellness Visit 09/18/2025 Osteoporosis Screening (Bone Density Screening) 09/18/2025 Social Influencers of Health Screening 09/18/2025 RSV Immunization Adult Patie nts (1 - 1-dose 75+ series) 2033 HIB Vaccines Aged Out No longer eligi ble based on patient's age to complete this topic HPV Vaccines Aged Out No longer eligi ble based on patient's age to complete this topic Hepatitis A Vaccines Aged Out No long er eligible based on patient's age to complete this topic Hepatitis B Vaccines Aged Out No long er eligible based on patient's age to complete this topic IPV Vaccines Aged Out No longer eligi ble based on patient's age to complete this topic MMR Vaccines Aged Out No longer eligi ble based on patient's age to complete this topic Meningococcal ACWY Vaccine Aged Out N o longer eligible based on patient's age to complete this topic Meningococcal B Vaccine Aged Out No l onger eligible based on patient's age to complete this topic RSV Immunization Patients Un thuy 20 months Aged Out No longer eligible b ased on patient's age to complete this topic Varicella Vaccines Aged Out No longer eligible based on patient's age to complete this topic Insurance MEDICARE MEDICAID - [place] Care Teams Vehicle Controls Engineer Relationship Specialty Start Date End Date Lizette Samano MD [facility] [place] [address] PCP - General Internal Medicine 09/18/25
== END 2025-09-20 12:26 | disposition home or self-care (01) ==
LOC: HO.PMC 11:36
PROVIDERS: Visit Provider Registered Nurse Emergency
DX: M51.369 Other intervertebral disc degeneration, lumbar region without mention of lumbar back pain or lower extremity pain (principal); M51.16 Intervertebral disc disorders with radiculopathy, lumbar region
CPT/HCPCS: 99204; G2211

== ENCOUNTER → 2025-09-20 11:35 | Outpatient (BNVA) | payer MEDICARE, MEDICAID, SELFPAY | PROVIDERS: Visit Provider Registered Nurse Emergency | DX: M51.16 Intervertebral disc disorders with radiculopathy, lumbar region (principal); M51.360 Other intervertebral disc degeneration, lumbar region with discogenic back pain only | CPT/HCPCS: 99202 ==

== ENCOUNTER 2025-10-18 10:24 | Outpatient (REF) | payer MEDICARE, MEDICAID, SELFPAY ==
[2025-10-18 13:04] LABS: MANUAL DIFF FLAG NO
[2025-10-18 13:32] LABS: Hematocrit 43.4 % (37.0-47.0); Hemoglobin 13.8 g/dl (12.0-16.0); Imm Gran Abs Auto 0.04 X10*3/uL (0.00-0.03); Imm Gran Pct Auto 0.4 % (0.0-0.4); Lymphocytes Absolute Auto 3.4 X10*3/uL (1.2-4.9); Mean Corpuscular HGB Conc 31.8 g/dl (31.0-35.0); Mean Corpuscular Hemoglobin 26.0 pg (27.0-33.0); Mean Corpuscular Volume 81.9 fL (80.0-98.0); NRBC Abs Auto 0.000 X10*3/uL (0.0-0.012); NRBC Pct Auto 0.0 /100WBC (0.0-0.2); Platelet Count 286 X10*3/uL (160-400); Red Blood Count 5.30 X10*6/uL (4.20-5.50); White Blood Count 10.2 X10*3/uL (4.8-10.8)
[2025-10-18 18:51] LABS: Alanine Aminotransferase 30 U/L (0-31); Albumin Level 4.7 g/dL (3.5-5.0); Alkaline Phosphatase 50 U/L (39-117); Anion Gap 11 (12-20); Aspartate Amino Transferase 26 U/L (5-31); Blood Urea Nitrogen 17 mg/dL (9-16); Calcium 9.4 mg/dL (8.4-10.2); Carbon Dioxide 28 mmol/L (22-29); Chloride 107 mmol/L (96-108); Cholesterol 266 mg/dL (<200); Estimated Glomerular Filt Rate > 60; HDL Cholesterol 49 mg/dL (>40); Potassium 4.0 mmol/L (3.3-5.1); Sodium 142 mmol/L (135-145); Total Protein 7.4 g/dL (6.5-8.0); Triglycerides 174 mg/dL (<150)
== END 2025-10-18 10:25 | disposition home or self-care (01) ==
LOC: HO.HMGCLDS 10:24
PROVIDERS: PCP Internal Medicine; Visit Provider Internal Medicine
DX: M81.0 Age-related osteoporosis without current pathological fracture (principal); E78.5 Hyperlipidemia, unspecified; R73.9 Hyperglycemia, unspecified; E55.9 Vitamin D deficiency, unspecified; I10 Essential (primary) hypertension
CPT/HCPCS: 36415; 80053; 80061; 82306; 84443; 85025

== ENCOUNTER 2025-10-22 09:52 | Outpatient (AMB) | payer MEDICARE, MEDICAID, SELFPAY ==
[2025-10-22 09:54] VITALS: BP 128/78; PULSE 99; RESP 15; TEMP 36.4; O2SAT 98; BMI 24.5
--- NOTE | 2025-10-22 09:54 | AM.OFFVISMDC ---
Intake Vital Signs 10/22/25 09:54 Height 5 ft 8 in Weight 161 lb BMI 24.5 BP 128/78 Blood Pressure Location Lt brachial Position Sitting Respiration 15 Pulse 99 Pulse Source Pulse Oximeter Temp 97.6 F Temp Source Oral Pulse Oximetry (%) 98 Oxygen Delivery Method Room Air Intake Visit Reasons: AWV G0438 Intake Note: Pt is here today for AWV. Allergies Iodinated Contrast Media (IV Contrast Dye) Allergy (Verified 10/22/25 09:56) Unconscious alendronate sodium (From Fosamax) Adverse Reaction (Intermediate, Verified 10/22/25 09:56) Dizziness atorvastatin Adverse Reaction (Intermediate, Verified 10/22/25 09:56) hair loss Erythromycin Allergy (Unknown, Uncoded 10/22/25 09:56) Hives Medication List - Last Reconciled 10/22/25 by Lizette Samano MD amlodipine-benazepril 5-10 mg 1 cap PO DAILY cyclobenzaprine 10 mg PO BEDTIME hydroxyzine HCl 25 mg PO TID PRN meloxicam 15 mg PO DAILY mirtazapine 15 mg PO BEDTIME paroxetine HCl 10 mg PO DAILY pregabalin 50 mg PO BID Prolia (denosumab) 60 mg subcut [id number] NS propranolol 80 mg PO BID rosuvastatin (Crestor) 20 mg PO DAILY zolpidem 10 mg PO BEDTIME PRN HPI AWV G0438 HPI Details Initiated the conversation about Advanced Directives. Advanced Directives help? patients prepare for current and future decisions about their medical treatment? and place of care. Discussed with patient that it is a process where a patients? current condition and prognosis are reviewed, their wishes for information? regarding their illness are elicited, and likely medical dilemmas are presented? and options discussed. The form can be amended as needed, reviewed yearly and? make changes as needed IPPE/AWV ? year old presents? for her ? Annual? Wellness Visit, initial visit.? Medical / Social History Reviewed? Past Medical History ?Yes? . ? [place]? of Care / Care Team list updated ?Yes . ? Surgical/Hospitalization? History ?Yes . ? Current Medications? (including OTC and supplements) ?Yes . ? Family History ?Yes? . ? Tobacco? Control form ?Yes . ? AUDIT-C (Alcohol use) form? ?Yes . ? Illicit drug use in Social? History ?Yes . ? Current diagnosis of? depression? ?No ? Appropriate PHQ2/PHQ9? completed ?Yes . ? Data entered by ?Medical? Learning And Development Manager and reviewed by provider ? Fall Risk ? Fall? History? Have you had any falls with? injury in the past year? ?No . ? Have you had two or more? falls in the past year? ?No . ? Fall Risk Assessment: ?No? falls in the past year . ? HRA filled out by? the patient, reviewed by Provider and scanned. ? IPPE/AWV ? Balance? [place]? ?Yes . ? Tandem? walk ?Yes . ? Walk and? Turn ?Yes . ? Rise from? sit to stand ?Yes . ?Vision? Corrective? lens ?Yes ? Vision? screen ? Up-to-date, has an appointment [] for vision? screening and glaucoma screening ?Hearing? Whisper? test ?pass .? Initiated the conversation about Advanced Directives. Advanced Directives help? patients prepare for current and future decisions about their medical treatment? and place of care. Discussed with patient that it is a process where a patients? current condition and prognosis are reviewed, their wishes for information? regarding their illness are elicited, and likely medical dilemmas are presented? and options discussed. The form can be amended as needed, reviewed yearly and? make changes as needed Written? Plan?Completed. See Patient? Documents. [facility] Medical History (Updated 10/22/25 @ 10:25 by Lizette Samano MD) Endometrial polyp Hyperglycemia Osteoporosis Lower back pain Sciatica Bilateral hand pain Shoulder pain, bilateral Annual physical exam History of Papanicolaou smear of cervix Hyperlipidemia Anxiety disorder IBS (irritable bowel syndrome) Major depressive disorder Hypertension Dysuria Surgical History (Updated 10/22/25 @ 10:19 by Lizette Samano MD) History of appendectomy H/O colonoscopy Family History Father No problems noted. Mother Hypertension Social History Housing: Apartment Alcohol intake: never Patient Tobacco Use Status: Former Tobacco user Cigarettes Per Day: 0 e-Cigarette/Vaping Use: Never Used service: No Current occupational status: unemployed Cognitive needs: No Hearing needs: No Vision needs: Yes Questionnaire Medicare Wellness Checkup [age] What gender do you identify with?: female During the past 4 weeks, how much have you been bothered by emotional problems such as feeling anxious, depressed, irritable, sad or downhearted, and blue?: moderately During the past 4 weeks, has your physical & emotional health limited your social activities with family, friends, neighbors, or groups?: moderately During the past 4 weeks, how much bodily pain have you generally had?: moderate pain During the past 4 weeks, was someone available to help you if you needed & wanted help?: yes, some During the past 4 weeks, what was the hardest physical activity you could do for at least 2 minutes?: light Can you get to places out of walking distance without help? (For eg., can you travel alone on buses, taxis or drive your car?): Yes Can you go shopping for groceries or clothes without someone's help?: Yes Can you prepare your own meals?: Yes Can you do your housework without help?: Yes Because of any health problems, do you need the help of another person with your personal care needs such as eating, bathing, dressing or getting around the house?: No Can you handle your own money without help?: Yes During the past 4 weeks, how would you rate your health in general?: fair During the past 4 weeks how have things been going for you?: good & bad parts about equal Are you having difficulties driving your car?: no Do you always fasten your seat belt when you are in a car?: yes, usually During past 4 weeks, have you been bothered by the following: never: Falling or dizzy when standing up, Sexual problems?, Teeth or denture problems?, Problems using the telephone? and Tiredness or fatigue? and seldom: Trouble eating well? Have you fallen 2 or more times in the past year?: No Are you afraid of falling?: Yes Are you a smoker?: no During the past 4 weeks, how many drinks of wine, beer, or other alcoholic beverages did you have?: no alcohol at all Do you exercise for about 20 minutes 3 or more times a week?: yes, most of the time Have you been given information to help with the following?: no: Hazards in your house that might hurt you? and no: Keeping track of your medications? How often do you have trouble taking medicines the way you have been told to take them?: I always take medicine as prescribed How confident are you that you can control & manage most of your health problems?: somewhat confident What is your race?: White Mini Mental State Exam (MMSE) Orientation What is the (year) (season) (date) (day) (month)?: year, season, date, day and month Where are we (state) (county) (town or city) (hospital) (floor)?: state, county, town or city, hospital/clinic and floor Registration Name of 3 unrelated objects clearly and slowly, then ask patient to repeat all 3 of them. (1st repeat determines score. Make sure they can repeat all three): object 1, object 2 and object 3 Attention & Calculation (CHOOSE ONE) Spell WORLD backwards (DLROW): 5 letters Recall Ask patient to repeat the 3 items from question #3.: object 1, object 2 and object 3 Language Show patient a wristwatch & ask what it is. Repeat for pencil.: watch and pencil Ask the patient to repeat the phrase 'No ifs, ands, or buts' after you.: correct Ask the patient to 'take a piece of paper with their right hand' 'fold paper in half' 'place paper on floor': take paper in right hand, fold paper in half and place paper on floor Print the sentence 'CLOSE YOUR EYES' on a piece. If patient actually closes eyes then score.: followed written direction Give patient a blank piece of paper & ask to write a sentence. Score if it contains a noun & verb.: sentence contains subject and verb Score Score: 29 PHQ-9 Over the last 2 weeks, how often have you been bothered by any of the following problems? 1. Little interest or pleasure in doing things: several days 2. Feeling down, depressed, or hopeless: more than half the days 3. Trouble falling or staying asleep, or sleeping too much: not at all 4. Feeling tired or having little energy: not at all 5. Poor appetite or overeating: not at all 6. Feeling bad about yourself - or that you are a failure or have let yourself or your family down: not at all 7. Trouble concentrating on things, such as reading the newspaper or watching television: several days 8. Moving or speaking so slowly that other people could have noticed. Or the opposite - being so fidgety or restless that you have been moving around a lot more than usual: not at all 9. Thoughts that you would be better off or of hurting yourself in some way: not at all Total score: 4 Depression Screening Interpretation: Negative Depression Screening Done: Yes Source: Developed by Drs. Jf Sullivan, Elina Dunn, Luis Manuel Rodrigues and colleagues, with an educational bryan from [employer]. Review of Systems Const All systems reviewed & are unremarkable except as noted in HPI and below Eyes Reports no additional complaints ENT Reports no additional complaints Card Reports no additional complaints Resp Reports no additional complaints GI Reports no additional complaints Reports no additional complaints Neuro Reports no additional complaints Physical Exam Vital Signs: Last Vital Signs Temp 97.6 F 10/22/25 09:54 Pulse 99 10/22/25 09:54 Resp 15 10/22/25 09:54 BP 128/78 10/22/25 09:54 Pulse Ox 98 10/22/25 09:54 Oxygen Delivery Method Room Air 10/22/25 09:54 BMI result Body Mass Index 24.5 Const General: no acute distress HEENT Head: Yes normal to inspection Ears: hearing grossly normal bilaterally Eyes General: appearance normal, both eyes and all related structures Neck Neck: Yes no lymphadenopathy and Yes supple Resp Effort & Inspection: normal respiratory effort Auscultation: clear to auscultation bilaterally Cardio Rhythm: regular rhythm Heart sounds: S1 normal heart sound present and S2 normal heart sound present GI Inspection: Yes normal to inspection Palpation (GI): Soft to palpation Percussion: Yes normal to percussion Auscultation: normal bowel sounds Extrem General: Yes no clubbing, cyanosis or edema Assessment & Plan Assessment & Plan (1) Major depressive disorder: Comment: Follow-up with Psychiatry Code(s): F32.9 - Major depressive disorder, single episode, unspecified Plan: Follow-up with psychiatry (2) Hypertension: Code(s): I10 - Essential (primary) hypertension Qualifiers: Hypertension type: primary hypertension Qualified Code(s): I10 - Essential (primary) hypertension Plan: Continue medications (3) Hyperlipidemia: Comment: Intolerant to atorvastatin caused hair loss Code(s): E78.5 - Hyperlipidemia, unspecified Plan: Restart Crestor follow-up in 6 months with a fasting labs before (4) Hyperglycemia: Code(s): R73.9 - Hyperglycemia, unspecified Plan: Continue ADA diet monitor A1c Orders: Orders Lipid Panel 6 Months E78.5 - Hyperlipidemia, unspecified, I10 - Essential (primary) hypertension, R73.9 - Hyperglycemia, unspecified Comprehensive [place]. Panel Fast 6 Months E78.5 - Hyperlipidemia, unspecified, I10 - Essential (primary) hypertension, R73.9 - Hyperglycemia, unspecified Complete Blood Count Auto Diff 6 Months E78.5 - Hyperlipidemia, unspecified, I10 - Essential (primary) hypertension, R73.9 - Hyperglycemia, unspecified Hemoglobin A1c 6 Months E78.5 - Hyperlipidemia, unspecified, I10 - Essential (primary) hypertension, R73.9 - Hyperglycemia, unspecified Medications: Refilled Prolia (denosumab) 60 mg subcut [id number] 1 mL 1RF NS rosuvastatin (Crestor) 20 mg PO DAILY 90 tabs 3RF Discontinued hydroxyzine HCl Discontinued Reason: Doctor's Order 25 mg PO TID PRN 20 tabs 0RF nausea and vomiting meloxicam Discontinued Reason: Doctor's Order 15 mg PO DAILY 30 tabs 2RF cyclobenzaprine Discontinued Reason: Doctor's Order 10 mg PO BEDTIME 30 tabs 0RF Quality Reporting (2019) Depression/Bipolar (159/160/161/177) PHQ-9: Total score: 4 Coding Level of Care Code Medicare Subsequent (G0439) Diagnoses Major depressive disorder F32.9 Primary hypertension I10 Hypertension type: primary hypertension Hyperlipidemia E78.5 Hyperglycemia R73.9 CPT Codes Advance Care Planning - Advance Care Planning discussion: On file, no changes ([id number]) Advance Care Planning - Time spent: 1-15 minutes, on File ([id number]) Advance Care Planning Advance Care Planning discussion: On file, no changes Forms completed: Health Care Proxy Time spent: 1-15 minutes, on File
== END 2025-10-22 10:51 | disposition home or self-care (01) ==
LOC: HO.HMCC 09:52
PROVIDERS: PCP Internal Medicine; Visit Provider Internal Medicine
DX: Z00.00 Encounter for general adult medical examination without abnormal findings (principal); F32.9 Major depressive disorder, single episode, unspecified; I10 Essential (primary) hypertension; E78.5 Hyperlipidemia, unspecified; R73.9 Hyperglycemia, unspecified